=== PATIENT | female | born 1960 | race Caucasian/White ===

== ENCOUNTER 2020-03-30 01:54 | Emergency (ER) | payer BC, SELFPAY ==
[2020-03-30] VITALS (24 sets, daily range): BP systolic 91–116; BP diastolic 42–73; PULSE 75–101; RESP 16–40; TEMP 37.3; O2SAT 94–100
--- NOTE | ~2020-03-30 | CT_ITS ---
EXAMINATION: CT abdomen pelvis w con DATE: 03/30/2020 04:05 INDICATION: Intermittent left-sided abdominal pain. TECHNIQUE: Computed tomography (CT) of the abdomen and pelvis was performed with 100 cc Omnipaque 350 intravenous contrast. Automated exposure control and iterative reconstruction technique were employe d. Exam dose: 339.57 mGy-cm total exam DLP. COMPARISON: None. FINDINGS: The lung bases are clear of infiltrate or consolidation. Cardiomegaly. No pericardial or pl eural effusion. No hepatic space-occupying mass lesion or intrahepatic or extrahepatic bile duct dilatation. Status p ost cholecystectomy. Borderline splenomegaly, spleen measuring up to 13.5 cm height. No pancreatic ma ss lesion, calcification or ductal dilatation. Normal morphology of the adrenal glands. No renal mass lesion or urinary tract calculus or hydroureteronephrosis. Normal caliber of the abdominal aorta. No intraperitoneal or retroperitoneal or pelvic mass lesion or adenopathy or ascites. Small sliding hiatal hernia. Normal appendix. No bowel obstruction. There are diverticula of the colo n, primarily in the ascending colon and hepatic flexure; No CT evidence of diverticulitis. No intrape ritoneal free air. Status post hysterectomy. The urinary bladder is unremarkable. No suspicious osteolytic or osteoblastic lesions are noted. IMPRESSION: Borderline splenomegaly Status post hysterectomy Status post cholecystectomy Small sliding hiatal hernia Diverticulosis of the colon Reviewed, dictated and finalized at [facility]. Reviewed, dictated and finalized at location A.
--- NOTE | ~2020-03-30 | CT_ITS ---
EXAMINATION: CT brain wo con DATE: 03/30/2020 02:48 INDICATION: Dizziness. Intermittent weakness. TECHNIQUE: Computed tomography (CT) of the head was performed without intravenous contrast. The mA wa s adjusted according to patient size. Iterative reconstruction technique was employed. The dose-lengt h product was 605.33 mGy-cm. COMPARISON: None FINDINGS: There are scattered areas of low attenuation in the cerebral white matter. There is no intr acranial hemorrhage, acute infarction, or abnormal intracranial mass lesion. The ventricles are jeovany l in size. The orbits are normal. There is mild mucosal thickening in the ethmoid sinuses. The mastoi d air cells are normal. IMPRESSION: 1. Mild nonspecific cerebral white matter disease, which likely represents chronic small vessel ische fior disease. Reviewed, dictated and finalized at location [facility]. IMPRESSION: 1. 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
--- NOTE | ~2020-03-30 | XR_ITS ---
EXAMINATION: XR chest 1V portable DATE: 03/30/2020 02:56 INDICATION: Dizziness. TECHNIQUE: A single frontal view of the chest was obtained. COMPARISON: CT abdomen and pelvis 03/30/2020 FINDINGS: A calcified left lung nodule is consistent with old granulomatous disease. There is mild sc arring at left lung apex. No pleural effusion or pneumothorax. The heart size is normal. Surgical cli ps in the right upper quadrant are likely from cholecystectomy. IMPRESSION: 1. Mild scarring in left lung apex. Reviewed, dictated and finalized at location [facility].
--- NOTE | 2020-03-30 02:11 | ECG_ITS ---
Measurements Intervals [place] Rate: 84 P: 54 KS: 148 QRS: -82 QRSD: 99 T: 49 QT: 389 QTc: 461 Interpretive Statements SINUS RHYTHM LEFT AXIS DEVIATION INCOMPLETE RIGHT BUNDLE BRANCH BLOCK CONSIDER INFERIOR INFARCT, AGE INDETERMINATE ST-T WAVE ABNORMALITY IN SEPTAL LEADS- CONSIDER ISCHEMIA BASELINE ARTIFACT- I, II, III, AVR, AVL ABNORMAL ECG Electronically Signed On 03-30-2020 15:05:13 CDT by Rashel Vaca D.O.
--- NOTE | 2020-03-30 02:20 | ED.WEAKNESS ---
HPI - Weakness General Chief complaint: Weakness Stated complaint: fever, chills, dehydration Time Seen by Provider: 03/30/20 02:05 Source: RN notes reviewed History of Present Illness HPI Narrative: Patient presents emergency department from home for weakness. Patient states she has been weak for the past 10 days. She states she is felt fatigued as well as had a intermittent fever has been up to 102 ?F. Patient states she has had some intermittent upper abdominal pain described as aching. She denies any rhinorrhea sore throat chest pain shortness of breath cough nausea vomiting diarrhea or any other symptoms. Patient does state that she did have a COVID test 1 week ago at [facility] at the request of her work she denies any other symptoms at this time Related Data Home Medications Medication Instructions Recorded Confirmed No Home Medications 03/30/20 03/30/20 Allergies Allergy/AdvReac Type Severity Reaction Status Date / Time Penicillins Allergy Mild Anaphylaxis Verified 03/30/20 02:02 Lengjir-Nnv-Fxc Reductase Allergy Unknown Muscle Pain Verified 03/30/20 02:02 Inhibitor Review of Systems Review of Systems: Narrative: Gen.: Reports fever Eyes: Denies eye pain or visual change ENT: Denies congestion Respiratory: Denies shortness of breath or cough CV: Denies chest pain or palpitations GI: Denies nausea, emesis or diarrhea reports intermittent abdominal pain Musculoskeletal: Denies back pain or muscle pain Neuro: Denies numbness, tingling, reports weakness Skin: Denies rash Except as documented, all other systems reviewed and negative [facility] Past Medical History Medical History (Updated 03/30/20 @ 05:59 by Lalo Trujillo DO) Patient denies significant medical history Social History Social History (Updated 03/30/20 @ 02:24 by Lalo Trujillo DO) Smoking packs per day: 0.25 Smoking cigarettes per day: 5.0 Exam Narrative: Exam Narrative: APPEARANCE: No acute distress, nontoxic, resting in bed EYES: EOMI HEENT: Normocephalic, atraumatic, OMM RESPIRATORY: No respiratory distress Clear to auscultation bilaterally with no rhonchi wheezing or rales. CARDIOVASCULAR: Regular rate and rhythm without murmurs rubs or gallops. ABDOMINAL: Soft, nontender, nondistended, no rebound or guarding MUSCULOSKELETAl: Moves all extremities. No clubbing, cyanosis or edema. NEURO: Awake and alert. Following commands, speech normal, no focal deficits SKIN:: Warm, dry. No rashes lesions or abrasions PSYCHIATRIC: Normal affect/mood, Course Course Emergency Course: Discussed with Dr. Pearce for internal medicine presentation work-up with aortitis recommends transfer to tertiary center Discussed with patient need for transfer in agreement with [place] at this time Discussed with Dr. Gan at [facility] internal medicine agrees with admission at this time does request patient have COVID test Number transfer Vital Signs Vital signs: Vital Signs Temperature 99.2 F 03/30/20 02:04 Pulse Rate 88 03/30/20 02:04 Respiratory Rate 16 03/30/20 02:04 Blood Pressure 100/58 L 03/30/20 02:04 Pulse Oximetry 98 03/30/20 02:04 Temperature 99.2 F 03/30/20 02:04 Pulse Rate 85 03/30/20 03:00 Respiratory Rate 32 H 03/30/20 03:00 Blood Pressure 116/73 03/30/20 03:00 Pulse Oximetry 99 03/30/20 03:00 MDM - Weakness Lab Data Result diagrams: 03/30/20 02:41 03/30/20 02:41 Labs: Lab Results 03/30/20 03/30/20 03/30/20 Range/Units 02:39 02:39 02:41 WBC 6.3 (4.5-10.0) K/mm3 RBC 4.49 (4.2-5.4) M/mm3 Hgb 13.4 (12.0-15.0) g/dL Hct 37.5 (37.0-47.0) % MCV 83.5 (80-100) fl MCH 29.8 (26-34) pg MCHC 35.7 (32-36) g/dl RDW 12.3 (11.5-14.5) % Plt Count 177 (150-375) k/mm3 MPV 10.5 H (7.4-10.4) fl Immature Gran % (Auto) 0.6 H (0-0.5) % Neut % (Auto) 52.7 (45.5-73.1) % Lymph % (Auto) 40.
[2020-03-30] MEDS: SODIUM CHLORIDE 0.9% IV 1,000 ML 999 ML IV CONT (02:51)
[2020-03-30 02:54] LABS: Basophils Percent Auto 0.5 % (0.2-1.2); Eosinophils Percent Auto 0.5 % (0-4.4); Hematocrit 37.5 % (37.0-47.0); Hemoglobin 13.4 g/dL (12.0-15.0); Immature Granulocyte Absolute 0.04 K/mm3 (0.00-0.031); Immature Granulocyte Percent A 0.6 % (0-0.5); Lymphocytes Absolute Auto 2.53 K/mm3 (0.9-3.2); Mean Corpuscular HGB Conc 35.7 g/dl (32-36); Mean Corpuscular Hemoglobin 29.8 pg (26-34); Mean Corpuscular Volume 83.5 fl (80-100); Mean Platelet Volume 10.5 fl (7.4-10.4); Monocytes Absolute Auto 0.4 K/mm3 (0.1-0.6); Monocytes Percent Auto 5.7 % (2.6-8.5); Neutrophils Absolute Auto 3.3 K/mm3 (1.3-6.7); Neutrophils Percent Auto 52.7 % (45.5-73.1); Platelet Count Result 177 k/mm3 (150-375); Red Blood Count 4.49 M/mm3 (4.2-5.4); Red Cell Distribution Width 12.3 % (11.5-14.5); White Blood Count 6.3 K/mm3 (4.5-10.0)
[2020-03-30 03:05] LABS: Lactic Acid Reflex 0.8 mmol/L (0.7-2.1)
[2020-03-30 03:06] LABS: Alanine Aminotransferase 75 U/L (4-35); Albumin Level 3.9 g/dL (3.5-5.1); Alkaline Phosphatase 292 U/L (38-126); Aspartate Amino Transferase 96 U/L (14-36); Blood Urea Nitrogen 12 mg/dL (7-17); Calcium 8.6 mg/dL (8.4-10.2); Carbon Dioxide 25 mmol/L (22-30); Chloride 99 mmol/L (98-107); Estimated Glomerular Filt Rate > 60; Glucose 117 mg/dL (65-105); Potassium 3.7 mmol/L (3.4-5.0); Sodium 132 mmol/L (137-145)
[2020-03-30 03:13] LABS: Atypical Lymphocytes Present; Hypochromasia 1+ (NORMAL); INR 0.9; Large Platelets Present; Platelet Estimate Adequate (Adequate); Prothrombin Time 12.2 Seconds (11.1-14.7)
[2020-03-30 03:16] LABS: Partial Thromboplastin Time 27.7 SECONDS (22.3-36.8)
[2020-03-30 03:17] LABS: Troponin I < 0.012 ng/mL (0.000-0.034)
[2020-03-30 03:54] LABS: Add Urine Microscopic? YES; Appearance Urine Clear (Clear); Bacteria Urine Trace /hpf; Bilirubin Urine Negative (Negative); Blood Urine Negative (Negative); Color Urine Yellow (Yellow); Glucose Urine UA Negative (Negative); Ketones Urine Negative (Negative); Leukocyte Esterase Ur Trace LEU/UL (Negative); Mucus Urine Few /lpf; Nitrate Urine Negative (Negative); Protein Urine Negative (Negative); RBC Urine 0-2 /hpf (0-2); Specific Grav Ur 1.011 (1.001-1.035); Squamous Epithelial Cell Urine Few /hpf (Few); Urobilinogen Urine Negative mg/dL (<2.0); WBC Urine 0-3 /hpf
[2020-03-30 06:03] LABS: CRP 6.1 mg/dL (<1.0)
[2020-03-30 06:48] LABS: Erythrocyte Sedimentation Rate 19 mm/hr (0-20)
--- NOTE | 2020-03-30 08:43 | PC.NURSE ---
attempted to call report to Katey at [phone] and nurse was busy. Attempted to call report and no one is available at this time. Will attempt a third time in 15 mins
[2020-03-31 12:56] LABS: SARS-CoV-2 RNA PCR Negative
== END 2020-03-30 09:43 | disposition short-term general hospital (02) ==
PROVIDERS: Emergency Provider Emergency Medicine; PCP Internal Medicine
DX: I77.6 Arteritis, unspecified (principal); Z20.828 Contact with and (suspected) exposure to other viral communicable diseases; F17.210 Nicotine dependence, cigarettes, uncomplicated; K44.9 Diaphragmatic hernia without obstruction or gangrene; K57.90 Diverticulosis of intestine, part unspecified, without perforation or abscess without bleeding; I45.10 Unspecified right bundle-branch block; R94.31 Abnormal electrocardiogram [ECG] [EKG]; R90.82 White matter disease, unspecified
CPT/HCPCS: 36415; 70450; 71045; 74177; 80053; 81001; 83605; 84484; 85025; 85610; 85652; 85730; 86140; 87040; 87635; 93005; 96361; 96365; 99285; C9803; J0131; J7030; Q9967; U0003

== ENCOUNTER 2022-05-26 14:57 | Emergency (ER) | payer BC, SELFPAY ==
--- NOTE | ~2022-05-26 | XR_ITS ---
EXAMINATION: XR chest 2V Exam Date/Time: 05/26/2022 18:18 CDT HISTORY: cough, fever Comparison: 03/30/2020. RESULT: Lines, tubes, and devices: Cholecystectomy clips. Lungs and pleura: Clear. Cardiomediastinal silhouette: Stable. Other: No acute osseous or upper abdominal finding. IMPRESSION: No acute cardiopulmonary process. Reviewed, dictated and finalized at location [facility].
--- NOTE | ~2022-05-26 | CT_ITS ---
EXAMINATION: CTA chest abdomen pelvis DATE: 05/26/2022 20:18 INDICATION: Fever, chills, shortness of breath, abdominal pain, history of aortitis. TECHNIQUE: Computed tomography (CT) of the chest, abdomen, and pelvis was performed without and with 100 mL Omnipaque-350 intravenous contrast in arterial and portal venous phases. Automated exposure co ntrol and iterative reconstruction technique were employed. The dose-length product was 1664.15 mGy-c m. COMPARISON: CT abdomen pelvis 03/30/2020, x-ray chest, 05/26/2022 FINDINGS: Thoracic aorta: Mild arch calcification. No intramural thrombus, aneurysm, or dissection. Short segme nt eccentric wall thickening in the descending thoracic aorta, with mild adventitial enhancement. Lung parenchyma and airways: Lungs and airways are clear. Scattered calcified granulomas. Thoracic inlet, axillae and chest wall: No thyroid or soft tissue mass. No axillary lymphadenopathy. Mediastinum: No mass or lymphadenopathy. Small hiatal hernia. Heart and pericardium: Normal heart size. No pericardial effusion. Coronary artery calcifications: Absent. Pleura: No effusion or mass. Thoracic bones: No acute osseous finding in the chest. ABDOMEN/PELVIS: Liver: Mildly enlarged. Biliary/Gallbladder: Gallbladder is absent. No bile duct dilation. Pancreas: No mass or duct dilation. Spleen: Mildly enlarged. Adrenals:No mass. Kidneys: Left lower pole hypodensity, too small to characterize but likely represents a cyst. No susp icious mass, stone, or hydronephrosis. GI tract: No small or large bowel dilation. Normal appendix. Diverticulosis without diverticulitis. Mesentery/Peritoneum: No ascites, mass, or free air. Retroperitoneum: No mass. Atherosclerotic abdominal aortic and/or arterial calcifications. No abdomin al aortic aneurysm. Mild circumferential soft tissue density wall thickening of the infrarenal abdomi nal aorta, with a suggestion of very faint adventitial enhancement. Pelvis: Uterus absent. Otherwise the pelvic organs are within normal limits Soft Tissues: Soft tissues and body wall unremarkable. Abdominopelvic bones: No acute osseous finding in the abdomen/pelvis. IMPRESSION: Focal eccentric wall thickening in the descending thoracic aorta. Longer segment of circumferential w all thickening in the infrarenal abdominal aorta. Both regions exhibit a suggestion of mild adventiti al enhancement suggesting active aortitis. Mild hepatosplenomegaly. No other acute finding in the billy [address], abdomen, or pelvis. Reviewed, dictated and finalized at location [facility]. IMPRESSION: Focal eccentric wall thickening in the descending thoracic aorta. Longer segmen t of circumferential wall thickening in the infrarenal abdominal aorta. Both re gions exhibit a suggestion of mild adventitial enhancement suggesting active ao rtitis. Mild hepatosplenomegaly. No other acute finding in the chest, abdomen, or pelvis.
[2022-05-26 15:43] VITALS: BP 109/61; PULSE 81; RESP 20; TEMP 36.5; O2SAT 98
[2022-05-26 16:42] LABS: SARS-CoV-2 RNA PCR Negative
--- NOTE | 2022-05-26 18:13 | ECG_ITS ---
Measurements Intervals [place] Rate: 79 P: 6 CO: 164 QRS: 267 QRSD: 90 T: 52 QT: 394 QTc: 454 Interpretive Statements SINUS RHYTHM RIGHT AXIS DEVIATION INCOMPLETE RIGHT BUNDLE BRANCH BLOCK RIGHT VENTRICULAR HYPERTROPHY AND ST-T CHANGE INFERIOR INFARCT, AGE INDETERMINATE BORDERLINE T WAVE ABNORMALITY- ANTERIOR LEADS BASELINE ARTIFACT- I, II, III, AVR, AVL, AVF ABNORMAL ECG Electronically Signed On 05-26-2022 21:52:18 CDT by Rashel Vaca D.O.
--- NOTE | 2022-05-26 18:14 | ED.GENADULT ---
HPI - General Adult General Chief complaint: Upper Respiratory Infection <Matthew Salazar APRN - Last Filed: 05/26/22 22:29> Stated complaint: fever, sore throat <Matthew Salazar APRN - Last Filed: 05/26/22 22:29> Time Seen by Provider: 05/26/22 18:06 <Matthew Salazar APRN - Last Filed: 05/26/22 22:29> History of Present Illness HPI narrative: 62-year-old female history of aortitis presents to the emergency room for evaluation URI symptoms. Patient states 3 days ago began developing intermittent fevers T-max of 100, sore throat, sinus congestion, postnasal drip, cough and occasional difficulty breathing. Patient also endorses joint pain in her arms and legs. home COVID test was negative. Patient is also accompanied by her daughter, and she remarks that the patient has been showing signs of mild confusion. Family member states the last time she presented like this she was diagnosed with aortitis. <Matthew Salazar APRN - Last Filed: 05/26/22 22:29> Related Data Home medications: Home Medications Medication Instructions Recorded Confirmed No Home Medications 03/30/20 03/30/20 <Matthew Salazar APRN - Last Filed: 05/26/22 22:29> Allergies/adverse reactions: Allergies Allergy/AdvReac Type Severity Reaction Status Date / Time Penicillins Allergy Mild Anaphylaxis Verified 05/26/22 19:13 Gxvukvg-EAW-TeD Reductase Allergy Unknown Muscle Pain Verified 05/26/22 19:13 Inhibitor [Rnldevq-Nmo-Uzt Reductase Inhibitor] <Matthew Salazar APRN - Last Filed: 05/26/22 22:29> Review of Systems Review of Systems: CONSTITUTIONAL: Reports fever EYES: Denies visual changes, redness, or discharge. ENT: Reports rhinorrhea, congestion, sore throat, or otalgia. CARDIOVASCULAR: Denies chest pain, palpitations, or edema. RESPIRATORY: Reports cough GASTROINTESTINAL: Denies abdominal pain, nausea, vomiting, or diarrhea. GENITOURINARY: Denies dysuria or hematuria. SKIN: Denies rash or itching. MUSCULOSKELETAL: Denies back pain, joint pain, or myalgia. NEUROLOGIC: Reports generalized weakness and malaise PSYCHIATRIC: Denies anxiety or depression. <Matthew Salazar APRN - Last Filed: 05/26/22 22:29> [facility] Past Medical History Medical History: Medical History Patient denies significant medical history <Matthew Salazar APRN - Last Filed: 05/26/22 22:29> Social History Social History: Social History Smoking packs per day: 0.25 Smoking cigarettes per day: 5.0 <Matthew Salazar APRN - Last Filed: 05/26/22 22:29> Exam Narrative: GENERAL: Well-appearing, well-nourished, no physical limitations, and in no acute distress. HEAD: Normocephalic, atraumatic. EYES: Conjunctivae normal, PERRLA and EOMI. ENT: External nose normal, Nares clear, no rhinorrhea or epistaxis. Mucous membranes moist. Oropharynx without tonsillar hypertrophy exudate or other lesions. External ears normal, bilateral TMs normal bilaterally. white-coated tongue NECK: Supple. No adenopathy or masses CHEST: Clear to auscultation. No respiratory distress. No wheezes rales or rhonchi. No tenderness. HEART: Regular rate and rhythm. No murmur heard. Normal peripheral pulses. ABDOMEN: Soft, nontender, nondistended, normal active bowel sounds. BACK: No CVA tenderness; No cervical/thoracic/lumbar tenderness, step-offs, bony abnormality; FROM EXTREMITIES: Normal range of motion. No edema. No clubbing or cyanosis SKIN: Warm, dry, no rash. No noted wounds NEURO: No focal deficits. Alert and oriented x3. MAEW. CN's II-XI intact bilaterally, normal gait PSYCH: Cooperative. Normal mood and affect. <Matthew Salazar APRN - Last Filed: 05/26/22 22:29> Course Course Emergency Course: 2199: I have contacted [facility], [facility], and [facility] for possible transfer and admission. Patient is on the wait list with all 3 hosp
[2022-05-26 18:53] LABS: Basophils Absolute Auto 0.1 K/mm3 (0.0-0.1); Basophils Percent Auto 0.5 % (0.2-1.2); Eosinophils Absolute Auto 0.4 K/mm3 (0-0.3); Eosinophils Percent Auto 2.5 % (0-4.4); Hematocrit 40.5 % (37.0-47.0); Hemoglobin 13.4 g/dL (12.0-15.0); Immature Granulocyte Absolute 0.06 K/mm3 (0.00-0.031); Immature Granulocyte Percent A 0.4 % (0-0.5); Lymphocytes Absolute Auto 4.43 K/mm3 (0.9-3.2); Lymphocytes Percent Auto 30.8 % (18.3-44.2); Mean Corpuscular HGB Conc 33.1 g/dl (32-36); Mean Corpuscular Hemoglobin 29.5 pg (26-34); Mean Corpuscular Volume 89.2 fl (80-100); Mean Platelet Volume 8.8 fl (7.4-10.4); Monocytes Percent Auto 6.9 % (2.6-8.5); Neutrophils Absolute Auto 8.5 K/mm3 (1.3-6.7); Neutrophils Percent Auto 58.9 % (45.5-73.1); Platelet Count Result 339 k/mm3 (150-375); Red Blood Count 4.54 M/mm3 (4.2-5.4); Red Cell Distribution Width 11.9 % (11.5-14.5); White Blood Count 14.4 K/mm3 (4.5-10.0)
[2022-05-26 19:06] LABS: Partial Thromboplastin Time 26.5 SECONDS (22.3-36.8)
[2022-05-26 19:13] VITALS: BP 128/68; PULSE 88; RESP 26; O2SAT 98
[2022-05-26 19:15] LABS: Alanine Aminotransferase 30 U/L (6-35); Albumin Level 4.7 g/dL (3.5-5.1); Alkaline Phosphatase 151 U/L (38-126); Anion Gap 13 mmol/L (8-16); Aspartate Amino Transferase 31 U/L (14-36); Bilirubin,Total 0.6 mg/dL (0.2-1.3); Blood Urea Nitrogen 11 mg/dL (7-17); CRP 6.2 mg/dL (<1.0); Calcium 9.9 mg/dL (8.4-10.2); Carbon Dioxide 27 mmol/L (22-30); Chloride 98 mmol/L (98-107); Estimated CRCL calculation 48 ml/min; Estimated Glomerular Filt Rate > 60; Glucose 101 mg/dL (65-110); Lipase 37 U/L (23-300); Potassium 4.1 mmol/L (3.4-5.0); Sodium 138 mmol/L (137-145)
[2022-05-26 19:30] LABS: Appearance Urine Clear (Clear); Bilirubin Urine 1+ (Negative); Blood Urine Negative (Negative); Color Urine Yellow (Yellow); Glucose Urine UA Negative (Negative); Ketones Urine Negative (Negative); Leukocyte Esterase Ur Negative LEU/UL (Negative); Nitrate Urine Negative (Negative); Protein Urine Negative (Negative); Specific Grav Ur >= 1.030 (1.001-1.035); Urobilinogen Urine 0.2 mg/dL (<2.0)
[2022-05-26 19:37] LABS: Bacteria Urine Trace /hpf; Mucus Urine Rare /lpf; RBC Urine 0-2 /hpf (0-2); Squamous Epithelial Cell Urine Few /hpf (Few); WBC Urine 0-3 /hpf
[2022-05-26 19:40] LABS: Add Urine Microscopic? YES
--- NOTE | 2022-05-26 20:06 | PC.NURSE ---
Pt to CT scan via stretcher at this time.
[2022-05-26 21:12] VITALS: BP 125/84; PULSE 94; RESP 24; O2SAT 98
--- NOTE | 2022-05-26 21:55 | PC.NURSE ---
Aubrie from [facility] access line called for pt info for bed assignment. Will call back after review.
[2022-05-26] MEDS: methylPREDNISolone SOD SUCC 125 MG VIAL IV PUSH (22:01)
--- NOTE | 2022-05-26 22:02 | PC.NURSE ---
Talked to Scott in lab at 22:02 to add on ESR
[2022-05-26 22:22] VITALS: BP 112/75; PULSE 79; RESP 28; O2SAT 98
--- NOTE | 2022-05-26 22:22 | PC.NURSE ---
Pt daughter at bedside requesting update on POC/information. CELL [phone] Tonya
[2022-05-26 22:31] LABS: Erythrocyte Sedimentation Rate 49 mm/hr (0-20)
[2022-05-26 23:27] VITALS: BP 130/70; PULSE 78; RESP 27; O2SAT 95
[2022-05-27] VITALS (65 sets, daily range): BP systolic 116–134; BP diastolic 61–114; PULSE 67–97; RESP 14–37; O2SAT 90–100
--- NOTE | 2022-05-27 05:00 | PC.NURSE ---
Filomena from [facility] called to ck on status of pt and see if any changes occurred during the night. Notified no change in pt condition and VSS. [facility] will cont to keep pt on waiting list and call with any updates.
--- NOTE | 2022-05-27 06:07 | PC.NURSE ---
Per Lizbeth - pulvi mixer operator, [facility] called for update on pt, insurance questions, and if pt was still needing transfer. pulvi mixer operator stated she is unaware of pt ins and if rheumatology follow up is covered. [facility] has no further questions at this time and states pt is still on their waiting list.
--- NOTE | 2022-05-27 07:20 | PC.NURSE ---
called dietary and ordered breakfast tray for pt at this time
[2022-05-27] MEDS: methylPREDNISolone SOD SUCC 125 MG VIAL IV PUSH ×3 (07:55→18:52)
[2022-05-28] VITALS (65 sets, daily range): BP systolic 98–150; BP diastolic 50–82; PULSE 55–93; RESP 16–34; TEMP 36.6–36.8; O2SAT 91–100
[2022-05-28] MEDS: methylPREDNISolone SOD SUCC 125 MG VIAL IV PUSH ×4 (00:24→18:04)
--- NOTE | 2022-05-28 02:16 | PC.NURSE ---
[facility] and [facility] called for an update still no beds
[2022-05-28 07:57] LABS: Basophils Percent Auto 0.2 % (0.2-1.2); Eosinophils Absolute Auto 0.1 K/mm3 (0-0.3); Eosinophils Percent Auto 0.3 % (0-4.4); Hematocrit 37.3 % (37.0-47.0); Hemoglobin 12.8 g/dL (12.0-15.0); Immature Granulocyte Absolute 0.28 K/mm3 (0.00-0.031); Immature Granulocyte Percent A 1.5 % (0-0.5); Lymphocytes Absolute Auto 2.66 K/mm3 (0.9-3.2); Lymphocytes Percent Auto 14.6 % (18.3-44.2); Mean Corpuscular HGB Conc 34.3 g/dl (32-36); Mean Corpuscular Volume 87.6 fl (80-100); Mean Platelet Volume 8.9 fl (7.4-10.4); Monocytes Absolute Auto 0.5 K/mm3 (0.1-0.6); Monocytes Percent Auto 2.7 % (2.6-8.5); Neutrophils Absolute Auto 14.7 K/mm3 (1.3-6.7); Neutrophils Percent Auto 80.7 % (45.5-73.1); Platelet Count Result 375 k/mm3 (150-375); Red Blood Count 4.26 M/mm3 (4.2-5.4); Red Cell Distribution Width 11.8 % (11.5-14.5); White Blood Count 18.2 K/mm3 (4.5-10.0)
[2022-05-28 08:12] LABS: Alanine Aminotransferase 22 U/L (6-35); Albumin Level 4.5 g/dL (3.5-5.1); Alkaline Phosphatase 129 U/L (38-126); Anion Gap 11 mmol/L (8-16); Aspartate Amino Transferase 20 U/L (14-36); Bilirubin,Total 0.4 mg/dL (0.2-1.3); Blood Urea Nitrogen 19 mg/dL (7-17); Calcium 9.6 mg/dL (8.4-10.2); Carbon Dioxide 28 mmol/L (22-30); Chloride 100 mmol/L (98-107); Estimated CRCL calculation 48 ml/min; Estimated Glomerular Filt Rate > 60; Glucose 179 mg/dL (65-110); Potassium 4.4 mmol/L (3.4-5.0); Sodium 139 mmol/L (137-145)
--- NOTE | 2022-05-28 11:49 | PC.NURSE ---
Pt food tray delivered
--- NOTE | 2022-05-28 11:52 | PC.NURSE ---
patient's daughter called per patient request, updated on bed placement holds and IV medications patient is receiving in the ED. patient's daughter upset that there are no other beds that she could go to but understands what we are waiting for at this time.
--- NOTE | 2022-05-28 12:49 | PC.NURSE ---
[facility] called for update on patient at this time, requesting vital signs with temperature. Patient still on waiting list, no eta on bed placement
--- NOTE | 2022-05-28 15:03 | PC.NURSE ---
05/28/[address] [facility]. on waitlist for medical bed, no beds at this time, 1245, 05/28/22 called [facility] no beds on for wait list, 1249, 05/28/22 called [facility]. on wait list , no beds. [phone]
--- NOTE | 2022-05-28 17:17 | PC.NURSE ---
dinner tray ordered at this time.
[2022-05-29] VITALS (111 sets, daily range): BP systolic 102–146; BP diastolic 60–83; PULSE 52–94; RESP 14–42; TEMP 36.8; O2SAT 92–100
[2022-05-29] MEDS: ACETAMINOPHEN 325 MG TABLET 650 MG PO (00:23)
[2022-05-29] MEDS: methylPREDNISolone SOD SUCC 125 MG VIAL IV PUSH (00:25)
--- NOTE | 2022-05-29 02:53 | PC.NURSE ---
spoke with pollo from [facility] transfer center at this time, wanting update on vital signs and pt status. per Pollo they will call when a bed is available.
--- NOTE | 2022-05-29 05:09 | PC.NURSE ---
Spoke with [facility]. They are aware that the patient is still in the ER and waiting for a bed.
[2022-05-29] MEDS: predniSONE 20 MG TABLET 60 MG PO (08:15)
--- NOTE | 2022-05-29 09:14 | PC.NURSE ---
C called for pt update. They still have no beds available at this time.
[2022-05-29 11:48] LABS: Basophils Absolute Auto 0.1 K/mm3 (0.0-0.1); Basophils Percent Auto 0.3 % (0.2-1.2); Hematocrit 37.4 % (37.0-47.0); Hemoglobin 12.5 g/dL (12.0-15.0); Immature Granulocyte Absolute 0.41 K/mm3 (0.00-0.031); Immature Granulocyte Percent A 2.2 % (0-0.5); Lymphocytes Absolute Auto 2.84 K/mm3 (0.9-3.2); Lymphocytes Percent Auto 15.3 % (18.3-44.2); Mean Corpuscular HGB Conc 33.4 g/dl (32-36); Mean Corpuscular Hemoglobin 29.8 pg (26-34); Mean Platelet Volume 8.9 fl (7.4-10.4); Monocytes Absolute Auto 0.8 K/mm3 (0.1-0.6); Monocytes Percent Auto 4.3 % (2.6-8.5); Neutrophils Absolute Auto 14.5 K/mm3 (1.3-6.7); Neutrophils Percent Auto 77.9 % (45.5-73.1); Platelet Count Result 339 k/mm3 (150-375); Red Cell Distribution Width 11.9 % (11.5-14.5); White Blood Count 18.6 K/mm3 (4.5-10.0)
[2022-05-29 11:55] LABS: Alanine Aminotransferase 20 U/L (6-35); Albumin Level 4.2 g/dL (3.5-5.1); Alkaline Phosphatase 118 U/L (38-126); Anion Gap 12 mmol/L (8-16); Aspartate Amino Transferase 19 U/L (14-36); Bilirubin,Total 0.4 mg/dL (0.2-1.3); Blood Urea Nitrogen 23 mg/dL (7-17); Calcium 9.1 mg/dL (8.4-10.2); Carbon Dioxide 25 mmol/L (22-30); Chloride 102 mmol/L (98-107); Estimated CRCL calculation 53 ml/min; Estimated Glomerular Filt Rate > 60; Glucose 233 mg/dL (65-110); Potassium 4.2 mmol/L (3.4-5.0); Sodium 139 mmol/L (137-145)
[2022-05-29 13:10] LABS: Creatine Kinase 25 U/L (30-135)
--- NOTE | 2022-05-29 15:01 | PC.NURSE ---
benny w/ Adelina at [email or web address] reports there are no beds available today. reports they are at capacity.
[2022-05-30] VITALS (30 sets, daily range): BP systolic 117–159; BP diastolic 61–89; PULSE 48–68; RESP 16–18; O2SAT 92–98
--- NOTE | 2022-05-30 00:15 | PC.NURSE ---
Katey called for an update. no news on a bed at this time.
--- NOTE | 2022-05-30 03:49 | PC.NURSE ---
[facility] transfer center called to check on the status of Noelle Man. [facility] is still at capacity but she will remain in their queue.
--- NOTE | 2022-05-30 05:19 | PC.NURSE ---
[facility] called to check patient's condition. Spoke with the RN
== END 2022-05-30 08:45 | disposition short-term general hospital (02) ==
PROVIDERS: Emergency Medicine; Physician Assistant; Emergency Provider Nurse Practitioner Family; PCP Internal Medicine
DX: I77.6 Arteritis, unspecified (principal); Z20.822 Contact with and (suspected) exposure to COVID-19; F17.210 Nicotine dependence, cigarettes, uncomplicated
CPT/HCPCS: 36415; 71046; 71275; 74174; 80053; 81001; 82550; 83605; 83690; 85025; 85610; 85652; 85730; 86140; 93005; 96374; 99285; A9270; C9803; J2930; J7512; Q9967; U0003; U0005

== ENCOUNTER 2023-05-06 11:20 | Emergency (ER) | payer MEDICARE, MEDICAID, SELFPAY ==
[2023-05-06 11:30] VITALS: BP 119/60; PULSE 71; RESP 20; TEMP 36.7; O2SAT 96
--- NOTE | 2023-05-06 11:30 | ED.EYEPROB ---
HPI - Eye Problem General Chief complaint: Eye Problems Stated complaint: Left Eye Irritation Time Seen by Provider: 05/06/23 11:39 Source: patient, RN notes reviewed and old records reviewed Mode of arrival: ambulatory Limitations: no limitations History of Present Illness HPI Narrative: 62-year-old female presents to the [facility] with complaints of left eye irritation, drainage, crusting for 2 weeks. States that she saw her eye doctor at [facility] and scheduled a cataract surgery. Reports that they tried calling yesterday but had they have not returned her phone call Patient reports they have not treated her symptoms. Has not got better or worse since being seen 2 weeks ago Patient reports that she has bad vision that is why she is needing cataract surgery. In the last 2 weeks she denies any change in vision. Onset (ago): week(s) (2) Treatments Prior to Arrival: none Related Data Home Medications Medication Instructions Recorded Confirmed Humira 05/06/23 05/06/23 cholecalciferol (vitamin D3) 1,250 05/06/23 mcg (50,000 unit) capsule leflunomide 20 mg tablet mg 05/06/23 pantoprazole 40 mg tablet,delayed mg PO 05/06/23 release sertraline 50 mg tablet mg 05/06/23 Allergies Allergy/AdvReac Type Severity Reaction Status Date / Time Penicillins Allergy Mild Anaphylaxis Verified 05/06/23 11:54 Vqgzweu-DMK-YbY Reductase Allergy Unknown Muscle Pain Verified 05/06/23 11:54 Inhibitor [Dtckhnn-Yqr-Ddn Reductase Inhibitor] Review of Systems Review of Systems: All systems reviewed & are unremarkable except as noted in HPI and below Constitutional: Constitutional: Reports no additional constitutional complaints Eyes: Eyes: Reports as per HPI ENT: Reports system reviewed and no additional complaints, except as documented Cardiovascular: Cardiovascular: Reports no additional cardiovascular complaints, Denies chest pain and Denies dyspnea Respiratory: Respiratory: Reports no additional respiratory complaints, Denies chest congestion, Denies cough and Denies dyspnea Gastrointestinal: Gastrointestinal: Reports no additional gastrointestinal complaints, Denies abdominal pain, Denies nausea and Denies vomiting Musculoskeletal: Musculoskeletal: Reports no additional musculoskeletal complaints Integumentary/Breasts: Skin/Breast: Reports system reviewed and no additional complaints, except as docu Neurologic: Reports system reviewed and no additional complaints, except as documented Psychiatric: Psychiatric: Reports no additional psychiatric complaints Allergic/Immunologic: Allergic/Immunologic: Reports no additional allergic/immunologic complaints PMFSH Past Medical History Medical History Patient denies significant medical history Social History Social History Smoking packs per day: 0.25 Smoking cigarettes per day: 5.0 Comments At the time of my signature, I reviewed and agree with the nursing past medical, surgical, social, and family history. There is no relevant family history pertinent to the patient complaint. Exam Const: General: cooperative, healthy appearing, comfortable, no acute distress, well developed, alert and well nourished Nutritional Appearance: well nourished Orientation/consciousness: patient oriented x3 Limitations: no limitations HENMT: Head: normal to inspection Ears: hearing grossly normal bilaterally and external ears normal Face/Nose/Sinus: Normal external nose present, Normal nares present, Normal nasal mucous membranes and turbinates present and normal facial exam Face and sinus: normal facial exam Mouth: Yes Normal oral and palatal mucosa present, Yes lip normal and Yes moist mucous membranes Throat: posterior oropharynx normal and uvula midline Eyes: General: appearance normal, both eyes and all related structures Alignment and Position: alignment n
[2023-05-06 11:55] VITALS: BP 119/60; PULSE 71; RESP 20; TEMP 36.7; O2SAT 96
== END 2023-05-06 12:06 | disposition home or self-care (01) ==
PROVIDERS: Emergency Provider Nurse Practitioner; PCP Physician Assistant
DX: H10.32 Unspecified acute conjunctivitis, left eye (principal); F17.210 Nicotine dependence, cigarettes, uncomplicated
CPT/HCPCS: 99211; G0463

== ENCOUNTER 2023-09-30 14:10 | Emergency (ER) | payer MEDICARE, MEDICAID, SELFPAY ==
--- NOTE | ~2023-09-30 | XR_ITS ---
EXAMINATION: XR chest 2V 09/30/2023 14:46 INDICATION: Productive cough PROCEDURE: 2 view chest COMPARISON: 05/26/2022 FINDINGS: The lungs are clear. The lungs are hyperinflated which is consistent with, but not diagnost ic of chronic obstructive pulmonary disease. The cardiomediastinal silhouette is within normal limits . There are no pleural effusions. There is no pneumothorax suspected. IMPRESSION: 1: NO ACUTE CARDIOPULMONARY DISEASE. Reviewed, dictated and finalized at location [facility]
--- NOTE | 2023-09-30 14:15 | ED.URI ---
HPI - URI/Sore Throat General Chief Complaint: Upper Respiratory Infection Stated Complaint: Cough Time Seen by Provider: 09/30/23 14:29 Source: patient and RN notes reviewed Mode of arrival: ambulatory Limitations: no limitations History of Present Illness HPI Narrative: 64-year-old female with history of rheumatoid arthritis presents with 1 month history of cough. Reports she is on immunosuppressants and her business office director want her to be evaluated. She reports she has the beginning stages of COPD, she has not smoked in 3 years. She reports she has an albuterol inhaler at home that she has used intermittently throughout her illness but does not make much of a difference. MD elicited complaint: cough Related Data Home Medications Medication Instructions Recorded Confirmed cholecalciferol (vitamin D3) 1,250 1,250 mcg DIRECTED 05/06/23 09/30/23 mcg (50,000 unit) capsule leflunomide 20 mg tablet 20 mg DIRECTED 05/06/23 09/30/23 pantoprazole 40 mg tablet,delayed 40 mg PO DIRECTED 05/06/23 09/30/23 release sertraline 50 mg tablet 50 mg DIRECTED 05/06/23 09/30/23 adalimumab 40 mg/0.4 mL mg subcut 09/30/23 subcutaneous pen kit (Humira(CF) Pen) folic acid 1 mg tablet 1 mg DIRECTED 09/30/23 09/30/23 trazodone 50 mg tablet 50 mg DIRECTED 09/30/23 09/30/23 Allergies Allergy/AdvReac Type Severity Reaction Status Date / Time Penicillins Allergy Mild Anaphylaxis Verified 05/06/23 11:54 Tnjcjwd-KRO-PuY Reductase Allergy Unknown Muscle Pain Verified 05/06/23 11:54 Inhibitor [Bzmybjm-Mwo-Ven Reductase Inhibitor] Review of Systems Review of Systems: CONSTITUTIONAL: Denies malaise, chills, sweats, or fever. EYES: Denies visual changes, redness, or discharge. ENT: Reports rhinorrhea, congestion. Denies sinus pain, otalgia and sore throat. CARDIOVASCULAR: Denies chest pain, palpitations, or edema. RESPIRATORY: Reports cough. Denies dyspnea. GASTROINTESTINAL: Denies abdominal pain, nausea, vomiting, diarrhea SKIN: Denies rash or itching. MUSCULOSKELETAL: Denies myalgia. NEUROLOGIC: Denies headache. All systems reviewed & are unremarkable except as noted in HPI and below PMFSH Past Medical History Medical History Patient denies significant medical history Social History Social History Smoking packs per day: 0.25 Smoking cigarettes per day: 5.0 Comments At time of signature, agree with nursing past medical, surgical, social and family history. There is no relevant family history pertinent to the presenting complaint Exam Narrative: GENERAL: Well-appearing, well-nourished, and in no acute distress. HEAD: Normocephalic EYES: PERRLA, conjunctivae clear ENT: Nares clear, turbinates edematous and erythematous, clear discharge. Mucous membranes moist. TM pearly joaquin with dull light reflex bilaterally; no tragal tenderness. Oropharynx not erythematous without lesions. Tonsils not enlarged and without exudate, no drooling, no hoarseness, no trismus, uvula midline. NECK: Supple. No lymphadenopathy CHEST: Scattered wheeze and rhonchi, breath diminished in the bases. No rales, or stridor. No respiratory distress, speaks in full sentences. HEART: Regular rate and rhythm. No murmur heard. SKIN: Warm, dry, no rash. NEURO: Alert and oriented x3. PSYCH: Normal mood and affect Course Course Emergency Course: Patient is aware of diagnosis, understands and agrees to treatment plan. Anticipatory guidance given. Patient agrees to follow-up as directed and is aware of reasons to seek care at the emergency department. Portions of this record may have been created with voice recognition software Level of Care: Express Care Visit Vital Signs Vital signs: Reviewed. MDM - URI/Sore Throat MDM Narrative Medical decision making narrative: Differential diagnosis considered: [facility]
[2023-09-30 14:19] VITALS: BP 131/66; PULSE 75; RESP 16; TEMP 36.7; O2SAT 95
[2023-09-30 14:22] VITALS: BP 131/66; PULSE 75; RESP 16; TEMP 36.7; O2SAT 95
== END 2023-09-30 15:06 | disposition home or self-care (01) ==
PROVIDERS: Emergency Provider Nurse Practitioner; PCP Physician Assistant
DX: R05.9 Cough, unspecified (principal); F17.210 Nicotine dependence, cigarettes, uncomplicated; J44.9 Chronic obstructive pulmonary disease, unspecified; M35.3 Polymyalgia rheumatica
CPT/HCPCS: 71046; 99213; G0463

== ENCOUNTER 2024-06-03 14:06 | Emergency (ER) | payer MEDICARE, MEDICAID, SELFPAY ==
[2024-06-03 14:18] VITALS: BP 132/56; PULSE 84; RESP 16; TEMP 37; O2SAT 97
--- NOTE | 2024-06-03 14:26 | ED.WOUNDLAC ---
HPI - Wound/Laceration General Chief Complaint: Wound/Laceration Stated Complaint: Wound Check History of Present Illness HPI narrative: Patient presents with complaints of wound to right lower leg. She reports that about 10 days ago she dropped a brick on it and scraped the leg. She immediately cleaned it with peroxide, has been putting triple antibiotic ointment on it. Is occasionally soaking it. She began to notice about a week ago that the site was looking infected. She has had yellowing green drainage. She has had increasing pain. She denies any fever, chills, sweats. She voices no other concerns or complaints today Related Data Home Medications Medication Instructions Recorded Confirmed cholecalciferol (vitamin D3) 1,250 1,250 mcg PO DIRECTED 05/06/23 06/03/24 mcg (50,000 unit) capsule leflunomide 20 mg tablet 20 mg PO DIRECTED 05/06/23 06/03/24 pantoprazole 40 mg tablet,delayed 40 mg PO DIRECTED 05/06/23 06/03/24 release sertraline 50 mg tablet 50 mg PO DIRECTED 05/06/23 06/03/24 adalimumab 40 mg/0.4 mL 40 mg subcut WEEKLY 09/30/23 06/03/24 subcutaneous pen kit (Humira(CF) Pen) folic acid 1 mg tablet 1 mg PO DIRECTED 09/30/23 06/03/24 trazodone 50 mg tablet 50 mg PO DIRECTED at bedtime 09/30/23 06/03/24 Allergies Allergy/AdvReac Type Severity Reaction Status Date / Time Penicillins Allergy Mild Anaphylaxis Verified 06/03/24 14:08 Ydiurwi-FJS-QdI Reductase Allergy Unknown Muscle Pain Verified 06/03/24 14:08 Inhibitor [Wyfsqxq-Sqa-Ons Reductase Inhibitor] Review of Systems Review of Systems: All systems reviewed & are unremarkable except as noted in HPI and below Constitutional: Constitutional: Reports no additional constitutional complaints ENT: Reports system reviewed and no additional complaints, except as documented Cardiovascular: Cardiovascular: Reports no additional cardiovascular complaints Respiratory: Respiratory: Reports no additional respiratory complaints Gastrointestinal: Gastrointestinal: Reports no additional gastrointestinal complaints Integumentary/Breasts: Skin/Breast: Reports as per HPI [facility] Past Medical History Medical History Patient denies significant medical history Social History Social History Smoking packs per day: 0.25 Smoking cigarettes per day: 5.0 Exam Const: General: cooperative, no acute distress, alert and awake Orientation/consciousness: oriented to person, oriented to place and oriented to time HENMT: Head: normal to inspection Resp: Effort & Inspection: normal respiratory effort and able to speak in complete sentences Auscultation: clear to auscultation bilaterally, no crackles, no rales, no rhonchi and no wheezes Cardio: Palpation: normal PMI Rate: regular rate Rhythm: regular rhythm Heart sounds: S1 normal heart sound present and S2 normal heart sound present Neuro: General: oriented to person, oriented to place and oriented to time Cranial nerves: Yes CN's II-XII intact bilaterally Extrem: Upper/lower leg/hip images: 1. 2.5 cm diameter wound, macerated scab. Central opening with scant drainage. There is an additional 1 cm of erythema surrounding this. No induration Psych: Appearance: grossly normal Thought process: Normal thought process present Insight: Good insight present (Psych) Judgement: Good judgement present (Psych) Course Course Level of Care: Express Care Visit Vital Signs Vital signs: Vital Signs Temperature 98.6 F 06/03/24 14:18 Pulse Rate 84 06/03/24 14:18 Respiratory Rate 16 06/03/24 14:18 Blood Pressure 132/56 L 06/03/24 14:18 Pulse Oximetry 97 06/03/24 14:18 Oxygen Delivery Room Air 06/03/24 14:18 Temperature 98.6 F 06/03/24 14:18 Pulse Rate 84 06/03/24 14:18 Respiratory Rate 16 06/03/24 14:18 Blood Pressure 132/56 L 08
== END 2024-06-03 14:35 | disposition home or self-care (01) ==
PROVIDERS: Emergency Provider Nurse Practitioner Family; PCP Physician Assistant
DX: L03.115 Cellulitis of right lower limb (principal); F17.210 Nicotine dependence, cigarettes, uncomplicated
CPT/HCPCS: 99213; G0463

== ENCOUNTER 2024-11-03 16:00 | Emergency (ER) | payer MEDICARE, MEDICAID, SELFPAY ==
[2024-11-03 16:07] VITALS: BP 118/62; PULSE 90; RESP 20; TEMP 37.2; O2SAT 95
--- NOTE | 2024-11-03 16:38 | ED.URI ---
HPI - URI/Sore Throat General Chief Complaint: Upper Respiratory Infection Stated Complaint: Cough/congestion/sore throat off and on 2 months Time Seen by Provider: 11/03/24 16:38 Source: patient Mode of arrival: ambulatory Limitations: no limitations History of Present Illness HPI Narrative: 64-year-old female presents with complaint of sore throat, fatigue, body aches, headache for the past 4-5 days. Has been exposed to strep throat from her grand children. All systems reviewed and negative except as noted above. Related Data Home Medications ?Medication ?Instructions ?Recorded ?Confirmed ?Last Taken ?Type pantoprazole 40 mg tablet,delayed 40 mg PO DIRECTED 05/06/23 06/03/24 Unknown History release sertraline 50 mg tablet 50 mg PO DIRECTED 05/06/23 06/03/24 Unknown History adalimumab 40 mg/0.4 mL 40 mg subcut WEEKLY 09/30/23 11/03/24 Unknown History subcutaneous pen kit (Humira(CF) Pen) folic acid 1 mg tablet 1 mg PO DIRECTED 09/30/23 06/03/24 Unknown History trazodone 50 mg tablet 50 mg PO DIRECTED at bedtime 09/30/23 06/03/24 Unknown History atorvastatin 10 mg tablet mg 11/03/24 Unknown History Allergies Allergy/AdvReac Type Severity Reaction Status Date / Time Penicillins Allergy Mild Anaphylaxis Verified 11/03/24 16:17 Ludxdud-HUV-WfB Reductase Allergy Unknown Muscle Pain Verified 06/03/24 14:08 Inhibitor (Pkhbltn-Jxj-Pxb Reductase Inhibitor) Review of Systems Review of Systems: CONSTITUTIONAL: Reports fatigue,fever, chills, or sweats. EYES: Denies visual changes, redness, or discharge. ENT: Denies rhinorrhea, congestion. Reports sore throat. Denies otalgia. CARDIOVASCULAR: Denies chest pain, palpitations, or edema. RESPIRATORY: Denies cough or dyspnea. GASTROINTESTINAL: Denies abdominal pain, nausea, vomiting, or diarrhea. GENITOURINARY: Denies dysuria or hematuria. SKIN: Denies rash or itching. MUSCULOSKELETAL: Denies back pain, joint pain, or myalgia. NEUROLOGIC: reports headache. Denies numbness, or weakness. PSYCHIATRIC: Denies anxiety or depression. All other systems reviewed are negative, except as documented in HPI. [facility] Past Medical History Medical History Patient denies significant medical history Social History Social History Smoking packs per day: 0.25 Smoking cigarettes per day: 5.0 Comments At time of signature, agree with nursing past medical, surgical, social and family history. There is no relevant family history pertinent to the presenting complaint. Exam Narrative: GENERAL: This is a well-nourished, well-developed patient, in no apparent distress. HEAD: normocephalic, atraumatic. EYES: PERRL. Sclera clear/white. Vision is grossly intact. EARS: External ears normal, auditory canals clear and without drainage, TMs normal without perforation. Hearing grossly intact. NOSE: External nose normal with no obvious nasal discharge, nares without redness, no rhinorrhea. THROAT: Mucous membranes moist, mild erythema with swelling. No exudates. tonsils 1+ bilaterally. NECK: Neck supple, non-tender without lymphadenopathy, masses or thyromegaly. CARDIOVASCULAR: Regular rate and rhythm without murmurs, gallops, or rubs. RESPIRATORY: Clear to auscultation. Breath sounds equal bilaterally. No wheezes, rales, or rhonchi. SKIN: warm, Dry, intact with no suspicious lesions or rash, good texture and turgor. NEURO: awake, alert, and oriented to person, place and time. There were no obvious focal neurologic abnormalities. EXTREMITIES: No joint tenderness, effusion, or edema noted. Course Course Level of Care: Express Care Visit Vital Signs Vital signs: Vital Signs Temperature 37.2 C 11/03/24 16:07 Pulse Rate 90 11/03/24 16:07 Respiratory Rate 20 11/03/24 16:07 Blood Pressure 118/62 11/03/24 16:07 Pulse Oximetry 95 11/03/24 16:07 Oxygen Delivery Room Air 11/03/24 16:07 Temperature 37.2 C 11/03/24 16:07 Pulse Rate 90 11/03/24 16:07 Respiratory Rate 20 11/03/24 16:07 Blood Pressure 118/62 11/03/24 16:07 Pulse Oximetry 95 11/03/24 16:07 Oxygen Delivery Room Air 11/03/24 16:07 reviewed MDM - URI/Sore Throat MDM Narrative Medical decision making narrative: positive rapid strep. Will treat patient with antibiotic. Patient is well-appearing, nontoxic. Patient is aware of diagnosis, understands and agrees to treatment plan. Anticipatory guidance given. Patient agrees to follow-up as directed and is aware of reasons to seek care at the emergency department. Portions of this record may have been created with voice recognition software Discharge Plan Discharge Clinical Impression: Strep throat Patient Disposition: Home, Self-Care Condition: Stable Instructions: Antibiotic Form, Strep Throat (ED) Additional Instructions: your strep test was positive today. Take antibiotic as prescribed until gone. Change toothbrush after taking antibiotic for 24 hours. Take Tylenol every 6-8 hours as needed for pain and fever. Drink at least 64 oz water a day. Follow-up with your primary care physician if symptoms are not improving. Patient Language: Luxembourgish Prescriptions: New azithromycin 250 mg tablet See Rx Instructions .ROUTE .COMPLEX Qty: 6 0RF Rx Instructions: For 250 mg dose pack: take 500 mg today (day 1), then 250 mg for 4 days (days 2-5) No Action pantoprazole 40 mg tablet,delayed release (DR/EC) 40 mg PO DIRECTED sertraline 50 mg tablet 50 mg PO DIRECTED trazodone 50 mg tablet 50 mg PO DIRECTED folic acid 1 mg tablet 1 mg PO DIRECTED Humira(CF) Pen 40 mg/0.4 mL pen injector kit 40 mg SUBCUT WEEKLY atorvastatin 10 mg tablet Follow-up/Referrals: Laura,JULIANA Daily [Primary Care Provider] - Time of Disposition: 16:51
[2024-11-03 16:42] LABS: EDSTREPNEGPOS1 Positive (Negative)
== END 2024-11-03 16:55 | disposition home or self-care (01) ==
PROVIDERS: Emergency Provider Nurse Practitioner Family; PCP Physician Assistant
DX: J02.0 Streptococcal pharyngitis (principal); F17.210 Nicotine dependence, cigarettes, uncomplicated
CPT/HCPCS: 87880; 99213; G0463

== ENCOUNTER 2025-02-21 09:09 | Emergency (ER) | payer OTHER, SELFPAY ==
[2025-02-21] VITALS (7 sets, daily range): BP systolic 88–107; BP diastolic 40–59; PULSE 72–86; RESP 16–32; TEMP 36.8–37; O2SAT 94–96
--- NOTE | ~2025-02-21 | CT_ITS ---
EXAMINATION: CT abdomen pelvis w con DATE: 02/21/2025 11:10 INDICATION: abdominal pain TECHNIQUE: Computed tomography (CT) of the abdomen and pelvis was performed with 100 mL Omnipaque-350 intravenous contrast. Automated exposure control and iterative reconstruction technique were employe d. The dose-length product was 348.45 mGy-cm. COMPARISON: 05/26/2022 FINDINGS: Lung bases are clear. Heart size is normal. No pericardial or pleural effusion. Small sliding-type hi atal hernia. Cholecystectomy clips the gallbladder fossa. Splenomegaly measuring 15.4 cm in cranial c audal length. Liver, pancreas, bilateral adrenal glands and right kidney are normal. 8 mm cyst at the lower pole the left kidney. There is mild colonic diverticulosis with a sigmoid predominance. There is no adjacent inflammatory change to suggest diverticulitis. Small bowel and appendix are normal. B ladder is normal. The uterus is not identified and has likely been surgically resected. Mild thoracic and upper lumbar spondylosis. IMPRESSION: 1. No acute intra-abdominal/pelvic process. 2. Small sliding-type hiatal hernia. 3. Nonspecific splenomegaly, new since prior study. Reviewed, dictated and finalized at location B.
[2025-02-21] MEDS: SODIUM CHLORIDE 0.9% IV 1,000 ML 999 ML IV CONT (09:43)
[2025-02-21] MEDS: ONDANSETRON INJ 4 MG/2 ML VIAL IV PUSH (09:44)
--- OUTSIDE RECORDS SUMMARY | 2025-02-21 09:45 | XMS_ITS | Clinical Summary ---
Author Organization [facility] Address [address] [place] [address] Care Team Providers Care Patents Examiner Name Role Phone Abimbola Sanchez PA-C Primary Care Provider [phone] Source Comments [facility],non-owned Affiliates and Associated Physician Practices is amultiple site organization consisting of ambulatory clinics and hospital sitesin [place], [place], [place] and [place]. This disclosure is being madepursuant to the Care Everywhere program and may not contain all information available regarding this patient. Last updated 18.[facility] Allergies Active Allergy Reactions Criticality Noted Date Comments Latex Other Low 10/14/2017 Skin peeling [place] Unknown 11/26/2023 Medications * Be aware that medications may not be up to date on this document. Alwaysverify current medications with the patient. ergocalciferol (Drisdol) 1.25 MG (95147 UT) capsule Active traZODone (Desyrel) 50 MG tablet Take 1 (one) tablet by mouth at bedtime Active atorvastatin (Lipitor) 10 MG tablet 02/25/20 24 Active sertraline (Zoloft) 100 MG tablet TAKE 1 TABLET BY MOUTH ONCE DAILY AT BEDTIME FOR DEPRESSION 02/24/20 24 Active pantoprazole EC (Protonix) 40 MG tablet Take 1 (one) tablet by mouth 2 times daily for 21 days 42 tablet 03/01/20 24 Active nitrofurantoin monohyd macro crystals (Macrobid) 100 MG capsule Take 1 (one) capsule by mouth 2 times daily with morning and evening meal 14 capsule 07/08/20 24 Active Additional Information Patient not taking.Reported on 02/14/2025 folic acid (Folvite) 1 MG tablet Take 1 tablet by mouth once daily 90 tablet 3 09/13/20 24 Active methotrexate 2.5 MG tabletIndication s:Undifferentiat ed inflammatory arthritis Take 6 (six) tablets by mouth every 7 days (once a week) 78 tablet 02/11/20 25 Active golimumab (Simponi) 50 MG/0.5ML auto-injectorInd ications:Psoriat ic arthritis (HCC) Inject 0.5 mL subcutaneously every 30 days 1 mL 5 02/15/20 25 Active methotrexate 2.5 MG tabletIndication s:Undifferentiat ed inflammatory arthritis TAKE 6 TABLETS BY MOUTH ONCE A WEEK 78 tablet 11/05/19 25 025 Discontin ued(Reord er) Adalimumab-aaty (Yuflyma) 40 MG/0.4ML injection Inject 0.4 mL subcutaneously every 7 days 1.6 mL 5 12/02/19 25 025 Discontin ued(Clini nicky Decision) adalimumab (Humira, 2 Pen,) 40 MG/0.4ML injection 025 Discontin ued(Clini nicky Decision) Encounters Date Type Department Care Team Description 02/14/2025 11:35 AM CDT - 02/14/2025 11:59 PM CDT Hospital Encounter [facility] [address] [place] [address] Shae Germain MD Rheumatology Discharge Disposition: Home or Self Care 02/14/2025 10:40 AM CDT Office Visit [facility] - Rheumatology [address], [address] [place] [phone] Shae Germain MD Inflammatory arthritis (Primary Dx); Psoriatic arthritis (HCC) 02/14/2025 Results Follow-Up [facility] - Rheumatology [address] [place] [address], [address] [place] [address] Shae Germain MD 02/07/2025 Refill [facility] - Rheumatology [address], [address] [place] [phone] Shae Germain MD MEDICATION REFILL 02/04/2025 Refill [facility] - Rheumatology [address] [place] [id number] Shae Germain MD MEDICATION REFILL 01/10/2025 Refill [facility] - Rheumatology [address] [place] [address] Shae Germain MD Refill Request 12/05/2024 Telephone [facility] - Rheumatology [address] [place] [address], [address] [place] [address] Shae Germain MD Medication Prior Auth Request 12/04/2024 Telephone [facility] Rheumatology [address] [place] [address], [address] [place] [phone] Shae Germain MD Medication Prior Auth Request from Last 3 Months Social History Tobacco Use Types Packs/Day Years Used Date Smoking Tobacco: Former Cigarettes Q uit: 2020 Smokeless Tobacco: Never Alcohol Use Standard Drinks/Week Comments Not Currently 0 (1 standard drink = 0.6 oz pur e alcohol) PHQ-2 Answer Date Recorded Patient Health Questionnaire-2 Score 0 02/14/2025 Comments Unknown Sex and Gender Information Value Date Recorded Sex Assigned at Not on file Legal Sex Female 6:00 AM [employer] Gender Identity Not on file Sexual Orientation Not on file Last Filed Vital Signs Vital Sign Reading Time Taken Comments Blood Pressure 122/72 02/14/2025 10:38 AM CDT Pulse 58 02/14/2025 10:38 AM CDT Temperature 36.1 C (96.9 F) 02/14/2025 10:38 AM CDT Respiratory Rate 16 02/14/2025 10:38 AM CDT Oxygen Saturation 96% 02/14/2025 10:38 AM CDT Inhaled Oxygen Concentration - - Weight 72.6 kg (160 lb) 02/14/2025 10:38 AM CDT Height 160 cm (5' 3 ) 07/05/2024 10:17 AM CDT Body Mass Index 28.34 07/05/2024 10:17 AM CDT Plan of Treatment Upcoming Encounters Date Type Department Care Team (Late st Contact Info) Description 06/13/2025 11:20 AM CDT Office Visit [facility] - Rheumatology [address], [address] [place] [address] Shae Germain MD [address] [facility] [place] [address] Health Maintenance Due Date Last Done Comments BONE DENSITY TESTING 1960 COLOGUARD (AGES 45-75) - COLON CA SCREENING 1958 COLON MONITORING 1958 COLONOSCOPY - COLON CA SCREENING 1958 CT COLONOGRAPHY - COLON CA SCREENING 1958 Colorectal Cancer Screening 1958 FIT - COLON CA SCREENING 1958 FLEX SIG - COLON CA SCREENING 1958 MEDICARE AWV 12 MONTHS 1958 DTAP/TDAP/TD VACCINES (1 - Tdap) 1977 PNEUMOCOCCAL VACCINE 50+ (1 of 1 - PCV) 2008 ZOSTER VACCINE (1 of 2) 2008 Respiratory Syncytial Virus (RSV) Vaccine Pt: or over 60 yrs (1 - Risk 60-74 years 1-dose series) 2018 MAMMOGRAM 05/30/2024 05/30/2022, 0601/2020, 10/27/2014, Additional history exists COVID-19 VACCINE ( season) 2024 01/17/2021, 12/26/2020 INFLUENZA VACCINE (Season Ended) 2025 09/10/2022, 09/14/2021, 08/11/2020 SCREENING FOR DIABETES 02/10/2028 , 10/14/2024, 06/18/2024, Additional history exists HEPATITIS C SCREENING Completed 03/01/2024, 022 DEPRESSION SCREENING Completed 02/14/2025, 11/22/2022, 09/24/2022 HEPATITIS B VACCINE Aged Out No longe r eligible based on patient's age to complete this topic HIB VACCINE Aged Out No longer eligi ble based on patient's age to complete this topic HPV VACCINE Aged Out No longer eligi ble based on patient's age to complete this topic MENINGOCOCCAL (Group B) VACCINE SHARED DECISION-MAKING Aged Out No longer eligible based on patient's age to complete this topic MENINGOCOCCAL GROUPS A/C/Y/W VACCINE Aged Out No longer eligible based on patient's age to complete this topic Procedures Procedure Name Priority Date/Time Associated Diagnosis Comments XR KNEE BILAT 3VW Routine 02/14/2025 12: 12 PM CDT Inflammatory arthritis XR SHOULDER BILAT 2VW OR MORE Routine 02/14/2025 12:12 PM CDT Inflammatory arthritis XR WRIST BILAT 3VW OR MORE Routine 02/14/2025 12:12 PM CDT Inflammatory arthritis XR HAND BILAT 3VW OR MORE Routine 02/14/2025 12:12 PM CDT Inflammatory arthritis XR ELBOW LEFT 2VW Routine 02/14/2025 12: 12 PM CDT Inflammatory arthritis CBC W AUTO DIFFERENTIAL Routine 02/09/2025 3:47 PM CDT Undifferentiated inflammatory arthritis High risk medication use COMPREHENSIVE METABOLIC PANEL Routine 02/09/2025 3:47 PM CDT Undifferentiated inflammatory arthritis High risk medication use ERYTHROCYTE SEDIMENTATION RATE Routine 02/09/2025 3:47 PM CDT Undifferentiated inflammatory arthritis High risk medication use C-REACTIVE PROTEIN Routine 02/09/2025 3: 47 PM CDT Undifferentiated inflammatory arthritis High risk medication use HEPATITIS SCREEN ACUTE ([facility]) Routine 03/01/2024 10:08 AM CDT Inflammatory arthritis Encounter for other specified special examinations from Last 3 Months or Most Recently Relevant to Health Maintenance Results * XR Wrist Bilat 3Vw or More (02/14/2025 12:12 PM CDT) Anatomical Region Laterality Modality Wrist / Hand, Upper Extremity Ra diographic Imaging 02/14/2025 1:31 PM CDT Narrative 02/14/2025 1:38 PM CDT PROCEDURE: XR WRIST BILAT 3VW OR MORE, XR KNEE BILAT 3VW, XR SHOULDER BILAT 2VW OR MORE, XR HAND BILAT 3VW OR MORE, XR ELBOW LEFT 2VW DATE/TIME OF EXAM: 02/14/2025 12:12 PM CLINICAL INFORMATION: None relevant/not provided if blank. Indication: M19.90: Unspecified osteoarthritis, unspecified site EXAMINATIONS: 1.XR WRIST BILAT 3VW OR MORE 2.XR KNEE BILAT 3VW 3.XR SHOULDER BILAT 2VW OR MORE 4.XR HAND BILAT 3VW OR MORE 5.XR ELBOW LEFT 2VW HISTORY: Inflammatory arthritis COMPARISON: None. FINDINGS/IMPRESSION: 1.No resorptive/subchondral cystic changes to indicate inflammatory osteoarthritis is identified in the imaged joints, throughout. 2.No acute fracture, dislocation, suspicious intrinsic bony lesions, or suspicious soft tissue abnormalities are identified in bilateral wrists, bilateral hands, left elbow or bilateral shoulder.. 3.There is mild osteoarthritis of bilateral acromioclavicular joints without osteophytosis. The joint space of left acromioclavicular joint is more narrowed than the right acromioclavicular joint. No significant osteoarthritis in the glenohumeral joint is identified and there is no evidence of subacromial stenosis on either side. Alignment of the bilateral shoulders is anatomic. 4.No enthesopathy, arthritic changes, joint effusion or bursitis is seen in the left elbow. 5.Mild osteoarthritis of the interphalangeal joints and the first metacarpophalangeal joints of both hands is symmetrically present. No significant osteoarthritis of radiocarpal joints, carpal joints or carpometacarpal joints is identified on either side and the wrists are symmetric. The carpal rows and the carpal joints are normally maintained. 6.The imaged ribs and imaged portion of the lungs are unremarkable. > Interpreting Provider: Piotr Cazares MD on 02/14/2025 1:38 PM Procedure Note Piotr Cazares MD - 02/14/2025 PROCEDURE: XR WRIST BILAT 3VW OR MORE, XR KNEE BILAT 3VW, XR SHOULDER BILAT 2VW OR MORE, XR HAND BILAT 3VW OR MORE, XR ELBOW LEFT 2VW DATE/TIME OF EXAM: 02/14/2025 12:12 PM CLINICAL INFORMATION: None relevant/not provided if blank. Indication: M19.90: Unspecified osteoarthritis, unspecified site EXAMINATIONS: 1.XR WRIST BILAT 3VW OR MORE 2.XR KNEE BILAT 3VW 3.XR SHOULDER BILAT 2VW OR MORE 4.XR HAND BILAT 3VW OR MORE 5.XR ELBOW LEFT 2VW HISTORY: Inflammatory arthritis COMPARISON: None. FINDINGS/IMPRESSION: 1.No resorptive/subchondral cystic changes to indicate inflammatory osteoarthritis is identified in the imaged joints, throughout. 2.No acute fracture, dislocation, suspicious intrinsic bony lesions, or suspicious soft tissue abnormalities are identified in bilateral wrists, bilateral hands, left elbow or bilateral shoulder.. 3.There is mild osteoarthritis of bilateral acromioclavicular joints without osteophytosis. The joint space of left acromioclavicular jointis more narrowed than the right acromioclavicular joint. No significant osteoarthritis in the glenohumeral joint is identified and there is no evidence of subacromial stenosis on either side. Alignment of thebilateral shoulders is anatomic. 4.No enthesopathy, arthritic changes, joint effusion or bursitis is seenin the left elbow. 5.Mild osteoarthritis of the interphalangeal joints and the first metacarpophalangeal joints of both hands is symmetrically present. No significant osteoarthritis of radiocarpal joints, carpal joints or carpometacarpal joints is identified on either side and the wrists are symmetric. The carpal rows and the carpal joints are normallymaintained. 6.The imaged ribs and imaged portion of the lungs are unremarkable. > Interpreting Provider: Piotr Cazares MD on 02/14/2025 1:38 PM Shae Germain MD DIAGNOSTIC IMAGING ORDERABLES Fi nal Result * XR Knee Bilat 3Vw (02/14/2025 12:12 PM CDT) Anatomical Region Laterality Modality Lower Extremity Radiographic Migdalia ging 02/14/2025 1:31 PM CDT Narrative 02/14/2025 1:38 PM CDT PROCEDURE: XR WRIST BILAT 3VW OR MORE, XR KNEE BILAT 3VW, XR SHOULDER BILAT 2VW OR MORE, XR HAND BILAT 3VW OR MORE, XR ELBOW LEFT 2VW DATE/TIME OF EXAM: 02/14/2025 12:12 PM CLINICAL INFORMATION: None relevant/not provided if blank. Indication: M19.90: Unspecified osteoarthritis, unspecified site EXAMINATIONS: 1.XR WRIST BILAT 3VW OR MORE 2.XR KNEE BILAT 3VW 3.XR SHOULDER BILAT 2VW OR MORE 4.XR HAND BILAT 3VW OR MORE 5.XR ELBOW LEFT 2VW HISTORY: Inflammatory arthritis COMPARISON: None. FINDINGS/IMPRESSION: 1.No resorptive/subchondral cystic changes to indicate inflammatory osteoarthritis is identified in the imaged joints, throughout. 2.No acute fracture, dislocation, suspicious intrinsic bony lesions, or suspicious soft tissue abnormalities are identified in bilateral wrists, bilateral hands, left elbow or bilateral shoulder.. 3.There is mild osteoarthritis of bilateral acromioclavicular joints without osteophytosis. The joint space of left acromioclavicular joint is more narrowed than the right acromioclavicular joint. No significant osteoarthritis in the glenohumeral joint is identified and there is no evidence of subacromial stenosis on either side. Alignment of the bilateral shoulders is anatomic. 4.No enthesopathy, arthritic changes, joint effusion or bursitis is seen in the left elbow. 5.Mild osteoarthritis of the interphalangeal joints and the first metacarpophalangeal joints of both hands is symmetrically present. No significant osteoarthritis of radiocarpal joints, carpal joints or carpometacarpal joints is identified on either side and the wrists are symmetric. The carpal rows and the carpal joints are normally maintained. 6.The imaged ribs and imaged portion of the lungs are unremarkable. > Interpreting Provider: Piotr Cazares MD on 02/14/2025 1:38 PM Procedure Note Piotr Cazares MD - 02/14/2025 PROCEDURE: XR WRIST BILAT 3VW OR MORE, XR KNEE BILAT 3VW, XR SHOULDER BILAT 2VW OR MORE, XR HAND BILAT 3VW OR MORE, XR ELBOW LEFT 2VW DATE/TIME OF EXAM: 02/14/2025 12:12 PM CLINICAL INFORMATION: None relevant/not provided if blank. Indication: M19.90: Unspecified osteoarthritis, unspecified site EXAMINATIONS: 1.XR WRIST BILAT 3VW OR MORE 2.XR KNEE BILAT 3VW 3.XR SHOULDER BILAT 2VW OR MORE 4.XR HAND BILAT 3VW OR MORE 5.XR ELBOW LEFT 2VW HISTORY: Inflammatory arthritis COMPARISON: None. FINDINGS/IMPRESSION: 1.No resorptive/subchondral cystic changes to indicate inflammatory osteoarthritis is identified in the imaged joints, throughout. 2.No acute fracture, dislocation, suspicious intrinsic bony lesions, or suspicious soft tissue abnormalities are identified in bilateral wrists, bilateral hands, left elbow or bilateral shoulder.. 3.There is mild osteoarthritis of bilateral acromioclavicular joints without osteophytosis. The joint space of left acromioclavicular jointis more narrowed than the right acromioclavicular joint. No significant osteoarthritis in the glenohumeral joint is identified and there is no evidence of subacromial stenosis on either side. Alignment of thebilateral shoulders is anatomic. 4.No enthesopathy, arthritic changes, joint effusion or bursitis is seenin the left elbow. 5.Mild osteoarthritis of the interphalangeal joints and the first metacarpophalangeal joints of both hands is symmetrically present. No significant osteoarthritis of radiocarpal joints, carpal joints or carpometacarpal joints is identified on either side and the wrists are symmetric. The carpal rows and the carpal joints are normallymaintained. 6.The imaged ribs and imaged portion of the lungs are unremarkable. > Interpreting Provider: Piotr Cazares MD on 02/14/2025 1:38 PM Shae Germain MD DIAGNOSTIC IMAGING ORDERABLES Fi nal Result * XR Hand Bilat 3Vw or More (02/14/2025 12:12 PM CDT) Anatomical Region Laterality Modality Upper Extremity, Wrist / Hand Ra diographic Imaging 02/14/2025 1:31 PM CDT Narrative 02/14/2025 1:38 PM CDT PROCEDURE: XR WRIST BILAT 3VW OR MORE, XR KNEE BILAT 3VW, XR SHOULDER BILAT 2VW OR MORE, XR HAND BILAT 3VW OR MORE, XR ELBOW LEFT 2VW DATE/TIME OF EXAM: 02/14/2025 12:12 PM CLINICAL INFORMATION: None relevant/not provided if blank. Indication: M19.90: Unspecified osteoarthritis, unspecified site EXAMINATIONS: 1.XR WRIST BILAT 3VW OR MORE 2.XR KNEE BILAT 3VW 3.XR SHOULDER BILAT 2VW OR MORE 4.XR HAND BILAT 3VW OR MORE 5.XR ELBOW LEFT 2VW HISTORY: Inflammatory arthritis COMPARISON: None. FINDINGS/IMPRESSION: 1.No resorptive/subchondral cystic changes to indicate inflammatory osteoarthritis is identified in the imaged joints, throughout. 2.No acute fracture, dislocation, suspicious intrinsic bony lesions, or suspicious soft tissue abnormalities are identified in bilateral wrists, bilateral hands, left elbow or bilateral shoulder.. 3.There is mild osteoarthritis of bilateral acromioclavicular joints without osteophytosis. The joint space of left acromioclavicular joint is more narrowed than the right acromioclavicular joint. No significant osteoarthritis in the glenohumeral joint is identified and there is no evidence of subacromial stenosis on either side. Alignment of the bilateral shoulders is anatomic. 4.No enthesopathy, arthritic changes, joint effusion or bursitis is seen in the left elbow. 5.Mild osteoarthritis of the interphalangeal joints and the first metacarpophalangeal joints of both hands is symmetrically present. No significant osteoarthritis of radiocarpal joints, carpal joints or carpometacarpal joints is identified on either side and the wrists are symmetric. The carpal rows and the carpal joints are normally maintained. 6.The imaged ribs and imaged portion of the lungs are unremarkable. > Interpreting Provider: Piotr Cazares MD on 02/14/2025 1:38 PM Procedure Note Piotr Cazares MD - 02/14/2025 PROCEDURE: XR WRIST BILAT 3VW OR MORE, XR KNEE BILAT 3VW, XR SHOULDER BILAT 2VW OR MORE, XR HAND BILAT 3VW OR MORE, XR ELBOW LEFT 2VW DATE/TIME OF EXAM: 02/14/2025 12:12 PM CLINICAL INFORMATION: None relevant/not provided if blank. Indication: M19.90: Unspecified osteoarthritis, unspecified site EXAMINATIONS: 1.XR WRIST BILAT 3VW OR MORE 2.XR KNEE BILAT 3VW 3.XR SHOULDER BILAT 2VW OR MORE 4.XR HAND BILAT 3VW OR MORE 5.XR ELBOW LEFT 2VW HISTORY: Inflammatory arthritis COMPARISON: None. FINDINGS/IMPRESSION: 1.No resorptive/subchondral cystic changes to indicate inflammatory osteoarthritis is identified in the imaged joints, throughout. 2.No acute fracture, dislocation, suspicious intrinsic bony lesions, or suspicious soft tissue abnormalities are identified in bilateral wrists, bilateral hands, left elbow or bilateral shoulder.. 3.There is mild osteoarthritis of bilateral acromioclavicular joints without osteophytosis. The joint space of left acromioclavicular jointis more narrowed than the right acromioclavicular joint. No significant osteoarthritis in the glenohumeral joint is identified and there is no evidence of subacromial stenosis on either side. Alignment of thebilateral shoulders is anatomic. 4.No enthesopathy, arthritic changes, joint effusion or bursitis is seenin the left elbow. 5.Mild osteoarthritis of the interphalangeal joints and the first metacarpophalangeal joints of both hands is symmetrically present. No significant osteoarthritis of radiocarpal joints, carpal joints or carpometacarpal joints is identified on either side and the wrists are symmetric. The carpal rows and the carpal joints are normallymaintained. 6.The imaged ribs and imaged portion of the lungs are unremarkable. > Interpreting Provider: Piotr Cazares MD on 02/14/2025 1:38 PM Shae Germain MD DIAGNOSTIC IMAGING ORDERABLES Fi nal Result * XR Shoulder Bilat 2Vw or More (02/14/2025 12:12 PM CDT) Anatomical Region Laterality Modality Upper Extremity Radiographic Migdalia ging 02/14/2025 1:31 PM CDT Narrative 02/14/2025 1:38 PM CDT PROCEDURE: XR WRIST BILAT 3VW OR MORE, XR KNEE BILAT 3VW, XR SHOULDER BILAT 2VW OR MORE, XR HAND BILAT 3VW OR MORE, XR ELBOW LEFT 2VW DATE/TIME OF EXAM: 02/14/2025 12:12 PM CLINICAL INFORMATION: None relevant/not provided if blank. Indication: M19.90: Unspecified osteoarthritis, unspecified site EXAMINATIONS: 1.XR WRIST BILAT 3VW OR MORE 2.XR KNEE BILAT 3VW 3.XR SHOULDER BILAT 2VW OR MORE 4.XR HAND BILAT 3VW OR MORE 5.XR ELBOW LEFT 2VW HISTORY: Inflammatory arthritis COMPARISON: None. FINDINGS/IMPRESSION: 1.No resorptive/subchondral cystic changes to indicate inflammatory osteoarthritis is identified in the imaged joints, throughout. 2.No acute fracture, dislocation, suspicious intrinsic bony lesions, or suspicious soft tissue abnormalities are identified in bilateral wrists, bilateral hands, left elbow or bilateral shoulder.. 3.There is mild osteoarthritis of bilateral acromioclavicular joints without osteophytosis. The joint space of left acromioclavicular joint is more narrowed than the right acromioclavicular joint. No significant osteoarthritis in the glenohumeral joint is identified and there is no evidence of subacromial stenosis on either side. Alignment of the bilateral shoulders is anatomic. 4.No enthesopathy, arthritic changes, joint effusion or bursitis is seen in the left elbow. 5.Mild osteoarthritis of the interphalangeal joints and the first metacarpophalangeal joints of both hands is symmetrically present. No significant osteoarthritis of radiocarpal joints, carpal joints or carpometacarpal joints is identified on either side and the wrists are symmetric. The carpal rows and the carpal joints are normally maintained. 6.The imaged ribs and imaged portion of the lungs are unremarkable. > Interpreting Provider: Piotr Cazares MD on 02/14/2025 1:38 PM Procedure Note Piotr Cazares MD - 02/14/2025 PROCEDURE: XR WRIST BILAT 3VW OR MORE, XR KNEE BILAT 3VW, XR SHOULDER BILAT 2VW OR MORE, XR HAND BILAT 3VW OR MORE, XR ELBOW LEFT 2VW DATE/TIME OF EXAM: 02/14/2025 12:12 PM CLINICAL INFORMATION: None relevant/not provided if blank. Indication: M19.90: Unspecified osteoarthritis, unspecified site EXAMINATIONS: 1.XR WRIST BILAT 3VW OR MORE 2.XR KNEE BILAT 3VW 3.XR SHOULDER BILAT 2VW OR MORE 4.XR HAND BILAT 3VW OR MORE 5.XR ELBOW LEFT 2VW HISTORY: Inflammatory arthritis COMPARISON: None. FINDINGS/IMPRESSION: 1.No resorptive/subchondral cystic changes to indicate inflammatory osteoarthritis is identified in the imaged joints, throughout. 2.No acute fracture, dislocation, suspicious intrinsic bony lesions, or suspicious soft tissue abnormalities are identified in bilateral wrists, bilateral hands, left elbow or bilateral shoulder.. 3.There is mild osteoarthritis of bilateral acromioclavicular joints without osteophytosis. The joint space of left acromioclavicular jointis more narrowed than the right acromioclavicular joint. No significant osteoarthritis in the glenohumeral joint is identified and there is no evidence of subacromial stenosis on either side. Alignment of thebilateral shoulders is anatomic. 4.No enthesopathy, arthritic changes, joint effusion or bursitis is seenin the left elbow. 5.Mild osteoarthritis of the interphalangeal joints and the first metacarpophalangeal joints of both hands is symmetrically present. No significant osteoarthritis of radiocarpal joints, carpal joints or carpometacarpal joints is identified on either side and the wrists are symmetric. The carpal rows and the carpal joints are normallymaintained. 6.The imaged ribs and imaged portion of the lungs are unremarkable. > Interpreting Provider: Piotr Cazares MD on 02/14/2025 1:38 PM Shae Germain MD DIAGNOSTIC IMAGING ORDERABLES Fi nal Result * XR Elbow Left 2Vw (02/14/2025 12:12 PM CDT) Anatomical Region Laterality Modality Upper Extremity Radiographic Migdalia ging 02/14/2025 1:31 PM CDT Narrative 02/14/2025 1:38 PM CDT PROCEDURE: XR WRIST BILAT 3VW OR MORE, XR KNEE BILAT 3VW, XR SHOULDER BILAT 2VW OR MORE, XR HAND BILAT 3VW OR MORE, XR ELBOW LEFT 2VW DATE/TIME OF EXAM: 02/14/2025 12:12 PM CLINICAL INFORMATION: None relevant/not provided if blank. Indication: M19.90: Unspecified osteoarthritis, unspecified site EXAMINATIONS: 1.XR WRIST BILAT 3VW OR MORE 2.XR KNEE BILAT 3VW 3.XR SHOULDER BILAT 2VW OR MORE 4.XR HAND BILAT 3VW OR MORE 5.XR ELBOW LEFT 2VW HISTORY: Inflammatory arthritis COMPARISON: None. FINDINGS/IMPRESSION: 1.No resorptive/subchondral cystic changes to indicate inflammatory osteoarthritis is identified in the imaged joints, throughout. 2.No acute fracture, dislocation, suspicious intrinsic bony lesions, or suspicious soft tissue abnormalities are identified in bilateral wrists, bilateral hands, left elbow or bilateral shoulder.. 3.There is mild osteoarthritis of bilateral acromioclavicular joints without osteophytosis. The joint space of left acromioclavicular joint is more narrowed than the right acromioclavicular joint. No significant osteoarthritis in the glenohumeral joint is identified and there is no evidence of subacromial stenosis on either side. Alignment of the bilateral shoulders is anatomic. 4.No enthesopathy, arthritic changes, joint effusion or bursitis is seen in the left elbow. 5.Mild osteoarthritis of the interphalangeal joints and the first metacarpophalangeal joints of both hands is symmetrically present. No significant osteoarthritis of radiocarpal joints, carpal joints or carpometacarpal joints is identified on either side and the wrists are symmetric. The carpal rows and the carpal joints are normally maintained. 6.The imaged ribs and imaged portion of the lungs are unremarkable. > Interpreting Provider: Piotr Cazares MD on 02/14/2025 1:38 PM Procedure Note Piotr Cazares MD - 02/14/2025 PROCEDURE: XR WRIST BILAT 3VW OR MORE, XR KNEE BILAT 3VW, XR SHOULDER BILAT 2VW OR MORE, XR HAND BILAT 3VW OR MORE, XR ELBOW LEFT 2VW DATE/TIME OF EXAM: 02/14/2025 12:12 PM CLINICAL INFORMATION: None relevant/not provided if blank. Indication: M19.90: Unspecified osteoarthritis, unspecified site EXAMINATIONS: 1.XR WRIST BILAT 3VW OR MORE 2.XR KNEE BILAT 3VW 3.XR SHOULDER BILAT 2VW OR MORE 4.XR HAND BILAT 3VW OR MORE 5.XR ELBOW LEFT 2VW HISTORY: Inflammatory arthritis COMPARISON: None. FINDINGS/IMPRESSION: 1.No resorptive/subchondral cystic changes to indicate inflammatory osteoarthritis is identified in the imaged joints, throughout. 2.No acute fracture, dislocation, suspicious intrinsic bony lesions, or suspicious soft tissue abnormalities are identified in bilateral wrists, bilateral hands, left elbow or bilateral shoulder.. 3.There is mild osteoarthritis of bilateral acromioclavicular joints without osteophytosis. The joint space of left acromioclavicular jointis more narrowed than the right acromioclavicular joint. No significant osteoarthritis in the glenohumeral joint is identified and there is no evidence of subacromial stenosis on either side. Alignment of thebilateral shoulders is anatomic. 4.No enthesopathy, arthritic changes, joint effusion or bursitis is seenin the left elbow. 5.Mild osteoarthritis of the interphalangeal joints and the first metacarpophalangeal joints of both hands is symmetrically present. No significant osteoarthritis of radiocarpal joints, carpal joints or carpometacarpal joints is identified on either side and the wrists are symmetric. The carpal rows and the carpal joints are normallymaintained. 6.The imaged ribs and imaged portion of the lungs are unremarkable. > Interpreting Provider: Piotr Cazares MD on 02/14/2025 1:38 PM Shae Germain MD DIAGNOSTIC IMAGING ORDERABLES Fi nal Result * C-REACTIVE PROTEIN (02/09/2025 3:47 PM CDT) Pathologist [facility] C-Reactive Protein <5.0 <8.0 mg/L [facility] Comment: REPORT COMMENT: FASTING:NO Test Performed at: [facility] [address] YAKOV DAILEY MD Blood BLOOD SPECIMEN / Unknown 02/09/2025 3:47 PM CDT 02/09/2025 3:51 PM CDT Shae Germain MD LAB - CHEMISTRY ORDERABLES Final Result Performing Organization Address [facility] Co de Phone Number [address] [address] * ERYTHROCYTE SEDIMENTATION RATE (02/09/2025 3:47 PM CDT) [facility] Erythrocyte Sedimentation Rate Westergren 16 < OR = 30 mm/h [facility] Comment: Test Performed at: [facility] [address] YAKOV DAILEY MD Blood BLOOD SPECIMEN / Unknown 02/09/2025 3:47 PM CDT 02/09/2025 3:51 PM CDT Shae Germain MD LAB - HEMATOLOGY ORDERABLES Marlee l Result Performing Organization Address [facility] Co de Phone Number [address] [address] * (ABNORMAL) CBC WITH DIFFERENTIAL (02/09/2025 3:47 PM CDT) [facility] White Blood Cell Count 10.8 3.8 - 10.8 Thousand/ uL [facility] RBC 4.33 3.80 - 5.10 Million/u L [facility] Hemoglobin 12.8 11.7 - 15.5 g/dL [facility] Hematocrit 38.6 35.0 - 45.0 % [facility] MCV 89.1 80.0 - 100.0 fL [facility] MCH 29.6 27.0 - 33.0 pg [facility] MCHC 33.2 32.0 - 36.0 g/dL [facility] Comment: For adults, a slight decrease in the calculated MCHC value (in the range of 30 to 32 g/dL) is most likely not clinically significant; however, it should be interpreted with caution in correlation with other red cell parameters and the patient's clinical condition. RDW 13.2 11.0 - 15.0 % [facility] Platelet Count 258 140 - 400 Thousand/ uL [facility] MPV 10.0 7.5 - 12.5 fL [facility] Neutrophil Absolute 5843 1500 - 7800 cells/uL [facility] Lymphocytes Absolute 4147(H) 850 - 3900 cells/uL [facility] Absolute Monocytes 583 200 - 950 cells/uL [facility] Eosinophils Absolute 162 15 - 500 cells/uL [facility] Basophils Absolute 65 0 - 200 cells/uL [facility] Granulocytes % 54.1 % [facility] Lymphocytes % 38.4 % [facility] Monocytes % 5.4 % [facility] Eosinophils % 1.5 % [facility] Basophils % 0.6 % [facility] Comment: Test Performed at: [facility] [address] [place] [address] YAKOV DAILEY MD Blood BLOOD SPECIMEN / Unknown 02/09/2025 3:47 PM CDT 02/09/2025 3:51 PM CDT Shae Germain MD LAB - HEMATOLOGY ORDERABLES Marlee l Result [address] [address] * COMPREHENSIVE METABOLIC PANEL (02/09/2025 3:47 PM CDT) Glucose 112 65 - 139 mg/dL [facility] Comment: Non-fasting reference interval BUN 9 7 - 25 mg/dL [facility] Creatinine 1.02 0.50 - 1.05 mg/dL [facility] eGFR by Cystatin C 61 > OR = 60 mL/min/1. 73m2 [facility] BUN/Creatinine Ratio SEE NOTE: 6 - 22 (calc) [facility] Comment: Not Reported: BUN and Creatinine are within reference range. Sodium 140 135 - 146 mmol/L [facility] Potassium 3.8 3.5 - 5.3 mmol/L [facility] Chloride 104 98 - 110 mmol/L [facility] CO2 30 20 - 32 mmol/L [facility] Calcium 9.4 8.6 - 10.4 mg/dL [facility] Protein Total 7.1 6.1 - 8.1 g/dL [facility] Albumin 4.3 3.6 - 5.1 g/dL [facility] Globulin Total 2.8 1.9 - 3.7 g/dL (calc) [facility] Albumin/Globulin Ratio 1.5 1.0 - 2.5 (calc) [facility] Bilirubin Total 0.4 0.2 - 1.2 mg/dL [facility] Alkaline Phosphatase 123 37 - 153 U/L [facility] AST 19 10 - 35 U/L [facility] ALT 12 6 - 29 U/L [facility] Comment: Test Performed at: [facility] [address] [place] [address] YAKOV DAILEY MD Blood BLOOD SPECIMEN / Unknown 02/09/2025 3:47 PM CDT 02/09/2025 3:51 PM CDT Shae Germain MD LAB - CHEMISTRY ORDERABLES Final Result Performing Organization Address [facility] Co de Phone Number [facility] [address] [place] [address] * HEPATITIS SCREEN ACUTE ([facility]) (03/01/2024 10:08 AM CDT) Hepatitis A Virus Antibody IgM Non Reactive Non Reactive [facility] INSURANCE BILL Hepatitis B Virus Surface Antigen Non Reactive Non Reactive [facility] INSURANCE BILL Hepatitis B Core Virus Antibody IgM Non Reactive Non Reactive [facility] INSURANCE BILL Hepatitis C Antibody Non Reactive Non Reactive [facility] INSURANCE BILL Comment: Non Reactive - Antibodies to Hepatitis C virus (HCV) were no t detected, result does not exclude early acute HCV infection. Blood BLOOD SPECIMEN / Unknown 03/01/2024 10:08 AM CDT 03/01/2024 Narrative Resulting Agency Comment Lab Testing performed at: [facility] [address] [facility] [id number] Shae Germain MD LAB - CHEMISTRY ORDERABLES Final Result Performing Organization Address City/[facility]/ZIP Co de Phone Number [facility] INSURANCE BILL [address] [place] [address] from Last 3 Months or Most Recently Relevant to Health Maintenance Insurance MEDICARE [employer]ET[employer] Care Teams Patents Examiner Relationship Specialty Start Date End Date Abimbola Sanchez PA-C [address] [place] [phone] PCP - General 11/22/22
--- OUTSIDE RECORDS SUMMARY | 2025-02-21 09:45 | XMS_ITS | Encounter Summary ---
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 Question Answer Date of Assessment Author Little interest or pleasure in doing things Not at all 02/14/2025 10:43 AM CDT Isabela Gonzales Feeling down, depressed, or hopeless Not at all 02/14/2025 10:43 AM CDT Isabela Gonzales Patient Health Questionnaire -2 Score 0 02/14/2025 10:43 AM CDT Isabela Gonzales documented as of this encounter Progress Notes * Shae Germain MD - 02/14/2025 9:43 PM CDT Xray shows degenerative arthritis in knees, small joints near bilateral shoulders, fingers, thumbs.No significant arthritis is seen in elbows, wrists. Patient can contact pcp to refer her to an orthopedic surgeon to evaluate knee arthritis. documented in this encounter Plan of Treatment Upcoming Encounters Date Type Department Care Team (Late st Contact Info) Description 06/13/2025 11:20 AM CDT Office Visit [facility] - Rheumatology [address], [address] [place] [address] Shae Germain MD [address] [place] [address] documented as of this encounter Visit Diagnoses Not on filedocumented in this encounter Care Teams Dinkey Press Operator Relationship Specialty Start Date End Date Abimbola Sanchez PA-C [address] [place] [phone] PCP - General 11/22/22 documented as of this encounter
--- OUTSIDE RECORDS SUMMARY | 2025-02-21 09:45 | XMS_ITS | Clinical Summary ---
Author Organization [facility] Address [address] [place] [address] Care Team Providers Care Streetcar Operator Name Role Phone Unavailable Primary Care Provider Unavailabl e Social History Tobacco Use Types Packs/Day Years Used Date Smoking Tobacco: Never Assessed Comments Unknown Sex and Gender Information Value Date Recorded Sex Assigned at Not on file Legal Sex Female 8:35 PM CDT Gender Identity Not on file Sexual Orientation Not on file Plan of Treatment Health Maintenance Due Date Last Done Comments Colorectal Cancer Screening Colonoscopy (10 Years) 1958 Hepatitis C 1976 DTaP, Tdap and Td Vaccines ( 1 - Tdap) 1977 Mammogram Screening 1998 Pneumococcal Vaccine: 50+ Ye ars (1 of 1 - PCV) 2008 Zoster Vaccines (1 of 2) 2008 Dexa Scan (General) 2023 COVID-19 Vaccine ( - 2023-2 5 season) 2024 RSV Immunization or 60+ Years (1 - 1-dose 75+ series) 2033 Meningococcal B Vaccine Aged Out No l onger eligible based on patient's age to complete this topic Meningococcal Vaccine Aged Out No skip thiago eligible based on patient's age to complete this topic RSV Immunizations Under 20 Months Aged Out No longer eligible based on patient's age to complete this topic
[2025-02-21 10:21] LABS: Basophils Absolute Auto 0.1 K/mm3 (0.0-0.1); Basophils Percent Auto 0.4 % (0.2-1.2); Eosinophils Absolute Auto 0.1 K/mm3 (0-0.3); Eosinophils Percent Auto 0.5 % (0-4.4); Hematocrit 34.3 % (37.0-47.0); Hemoglobin 11.1 g/dL (12.0-15.0); Immature Granulocyte Absolute 0.09 K/mm3 (0.00-0.031); Immature Granulocyte Percent A 0.6 % (0-0.5); Lymphocytes Absolute Auto 2.73 K/mm3 (0.9-3.2); Lymphocytes Percent Auto 16.9 % (18.3-44.2); Mean Corpuscular HGB Conc 32.4 g/dl (32-36); Mean Corpuscular Hemoglobin 28.5 pg (26-34); Mean Corpuscular Volume 87.9 fl (80-100); Mean Platelet Volume 9.2 fl (7.4-10.4); Monocytes Absolute Auto 1.3 K/mm3 (0.1-0.6); Monocytes Percent Auto 8.2 % (2.6-8.5); Neutrophils Absolute Auto 11.9 K/mm3 (1.3-6.7); Neutrophils Percent Auto 73.4 % (45.5-73.1); Platelet Count Result 201 k/mm3 (150-375); Red Cell Distribution Width 13.2 % (11.5-14.5); White Blood Count 16.2 K/mm3 (4.5-10.0)
--- OUTSIDE RECORDS SUMMARY | 2025-02-21 10:22 | XMS_ITS | Encounter Summary ---
Author Organization [facility] Address [address] [place] [address] Care Team Providers Care Oil Changer Name Role Phone Abimbola Sanchez PA-C Primary Care Provider [phone] Encounter Details Date Type Department Care Team (Late st Contact Info) Description 02/14/2025 Results Follow-Up [facility] - Rheumatology [address], [address] [place] [address] Shae Germain MD [facility] [place] [address] Social History Tobacco Use Types [...] on file 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
--- OUTSIDE RECORDS SUMMARY | 2025-02-21 10:22 | XMS_ITS | Clinical Summary ---
Author Organization [facility] Address [address] [place] [address] Care Team Providers Care Equipment Service Associate Name Role Phone Abimbola Sanchez PA-C Primary Care Provider Source Comments [facility],non-owned Affiliates and Associated Physician Practices is amultiple site organization consisting of ambulatory clinics and hospital sitesin [place], [place], [place] and [place]. This disclosure is being madepursuant to the Care Everywhere program and may not contain all information available regarding this patient. Last updated 18.[facility] Allergies Active Allergy Reactions Criticality Noted Date Comments Latex Other Low 10/14/2017 Skin peeling [place] Unknown 11/26/2023 Medications * Be aware that medications may not be up to date on this document. Alwaysverify current medications with the patient. ergocalciferol (Drisdol) 1.25 MG (04686 UT) capsule Active traZODone (Desyrel) 50 MG [...] - 02/14/2025 11:59 PM CDT Hospital Encounter [facility] [address] [facility] [facility] [place] [address] Shae Germain MD Rheumatology Discharge Disposition: Home or Self Care 02/14/2025 10:40 AM CDT Office Visit [facility] - Rheumatology [address], [address] [place] [address] Shae Germain MD Inflammatory arthritis (Primary Dx); Psoriatic arthritis (HCC) 02/14/2025 Results Follow-Up [facility] - Rheumatology [address] [place] [address], [address] [place] [address] Shae Germain MD 02/07/2025 Refill [facility] - Rheumatology [address], [address] [place] [phone] Shae Germain MD MEDICATION REFILL 02/04/2025 Refill [facility] - Rheumatology [address] [place] [address] Shae Germain MD MEDICATION REFILL 01/10/2025 Refill [facility] - Rheumatology [address] [place] [address] Shae Germain MD Refill Request 12/05/2024 Telephone [facility] - Rheumatology [address] [place] [address], [address] [place] [address] Shae Germain MD Medication Prior Auth Request 12/04/2024 Telephone [facility] Rheumatology [address] [place] [address], [address] [place] [phone] Shae Germain MD Medication Prior Auth Request [...] on file 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 Gender Identity Not on file Sexual Orientation [...] Description 06/13/2025 11:20 AM CDT Office Visit [facility] - Rheumatology [address], [address] [place] [address] Shae Germain MD [address] [facility] [place] [address] Health Maintenance Due Date Last Done [...] C-REACTIVE PROTEIN (02/09/2025 3:47 PM CDT) Pathologist [facility] C-Reactive Protein <5.0 <8.0 mg/L [facility] Comment: REPORT COMMENT: FASTING:NO Test Performed at: [email or web address] [address] YAKOV DAILEY MD Blood BLOOD SPECIMEN / Unknown 02/09/2025 3:47 PM CDT 02/09/2025 3:51 PM CDT Shae Germain MD LAB - CHEMISTRY ORDERABLES Final Result Performing Organization Address [facility] Co de Phone Number [address] [address] * ERYTHROCYTE SEDIMENTATION RATE (02/09/2025 3:47 PM CDT) [facility] Erythrocyte Sedimentation Rate Westergren 16 < OR = 30 mm/h [facility] Comment: Test Performed at: [email or web address] [address] YAKOV DAILEY MD Blood BLOOD SPECIMEN / Unknown 02/09/2025 3:47 PM CDT 02/09/2025 3:51 PM CDT Shae Germain MD LAB - HEMATOLOGY ORDERABLES Marlee l Result Performing Organization Address [facility] Co de Phone Number [address] [address] * (ABNORMAL) CBC WITH DIFFERENTIAL (02/09/2025 3:47 PM CDT) [facility] White Blood Cell Count 10.8 3.8 - [...] 0.6 % [facility] Comment: Test Performed at: [email or web address] [place] [address] [place] [address] YAKOV DAILEY MD Blood BLOOD SPECIMEN / Unknown 02/09/2025 3:47 PM CDT 02/09/2025 3:51 PM CDT Shae Germain MD LAB - HEMATOLOGY ORDERABLES Marlee l Result [address] [address] * COMPREHENSIVE METABOLIC PANEL (02/09/2025 3:47 PM [...] 29 U/L [facility] Comment: Test Performed at: [email or web address] [address] [place] [address] YAKOV DAILEY MD Blood BLOOD SPECIMEN / Unknown 02/09/2025 3:47 PM CDT 02/09/2025 3:51 PM CDT Shae Germain MD LAB - CHEMISTRY ORDERABLES Final Result Performing Organization Address [facility] Co de Phone Number [facility] [address] [place] [phone] * HEPATITIS SCREEN ACUTE ([facility]) (03/01/2024 10:08 [...] Resulting Agency Comment Lab Testing performed at: [facility] [address] [facility] [id number] Shae Germain MD LAB - CHEMISTRY ORDERABLES Final Result Performing Organization Address City/[facility]/ZIP Co de Phone Number [facility] INSURANCE BILL [address] [place] [address] from Last 3 Months or Most Recently Relevant to Health Maintenance Insurance MEDICARE AETNA Care Teams Equipment Service Associate Relationship Specialty Start Date End Date Abimbola Sanchez PA-C [address] [place] [phone] PCP - General 11/22/22
--- OUTSIDE RECORDS SUMMARY | 2025-02-21 10:22 | XMS_ITS | Clinical Summary ---
Author Organization [facility] Address [address] [place] [address] Care Team Providers Care Flat Folding Machine Operator Name Role Phone Unavailable Primary Care [...]
[2025-02-21 10:35] LABS: Alanine Aminotransferase 13 U/L (6-35); Albumin Level 3.9 g/dL (3.5-5.1); Alkaline Phosphatase 106 U/L (38-126); Anion Gap 8 mmol/L (4-12); Aspartate Amino Transferase 19 U/L (14-36); Bilirubin,Total 1.1 mg/dL (0.2-1.3); Blood Urea Nitrogen 16 mg/dL (7-17); Calcium 8.5 mg/dL (8.4-10.2); Carbon Dioxide 27 mmol/L (22-30); Chloride 100 mmol/L (98-107); Estimated CRCL calculation 46 ml/min; Estimated Glomerular Filt Rate > 60; Glucose 124 mg/dL (65-110); Lipase 25 U/L (23-300); Potassium 3.4 mmol/L (3.4-5.0); Sodium 135 mmol/L (137-145)
--- NOTE | 2025-02-21 12:27 | ED.GENADULT ---
HPI - General Adult General Chief complaint: Weakness Stated complaint: fever, chills Time Seen by Provider: 02/21/25 09:23 History of Present Illness HPI narrative: Patient is a 64-year-old female who presents the ER with nausea vomiting diarrhea. Ongoing over last week. Associated with fevers and chills. Unknown how many times she vomited yesterday or having time she had diarrhea. She has only had 1 episode of emesis today. No blood in stool. Related Data Home Medications ?Medication ?Instructions ?Recorded ?Confirmed ?Last Taken ?Type pantoprazole 40 mg tablet,delayed 40 mg PO DIRECTED 05/06/23 02/21/25 02/20/25 History release sertraline 50 mg tablet 100 mg PO DIRECTED 05/06/23 02/21/25 02/20/25 History adalimumab 40 mg/0.4 mL 40 mg subcut WEEKLY 09/30/23 02/21/25 02/06/25 History subcutaneous pen kit (Humira(CF) Pen) folic acid 1 mg tablet 1 mg PO DIRECTED 09/30/23 02/21/25 02/20/25 History trazodone 50 mg tablet 50 mg PO DIRECTED at bedtime 09/30/23 02/21/25 Unknown History atorvastatin 10 mg tablet 10 mg PO QPM 11/03/24 02/21/25 02/20/25 History methotrexate sodium 2.5 mg tablet 12.5 mg PO WEEKLY 02/21/25 02/21/25 02/06/25 History Allergies Allergy/AdvReac Type Severity Reaction Status Date / Time Penicillins Allergy Mild Anaphylaxis Verified 02/21/25 09:29 [id number]-[id number] Reductase Allergy Unknown Muscle Pain Verified 02/21/25 09:29 Inhibitor (Kwdoujh-Pmb-Fsg Reductase Inhibitor) Review of Systems Review of Systems: All systems reviewed & are unremarkable except as noted in HPI and below Constitutional: Constitutional: Reports no additional constitutional complaints ENT: Reports system reviewed and no additional complaints, except as documented Cardiovascular: Cardiovascular: Reports no additional cardiovascular complaints Respiratory: Respiratory: Reports no additional respiratory complaints Gastrointestinal: Gastrointestinal: Reports no additional gastrointestinal complaints [facility] Past Medical History Medical History Patient denies significant medical history Social History Social History Smoking packs per day: 0.25 Smoking cigarettes per day: 5.0 Exam Narrative: GENERAL: Well-appearing, well-nourished, and in no acute distress. HEAD: Normocephalic, atraumatic. ENT: Mucous membranes moist. CHEST: Clear to auscultation. No respiratory distress. HEART: Regular rate and rhythm. Normal peripheral pulses. ABDOMEN: Soft, nontender, nondistended. EXTREMITIES: Normal range of motion. No edema. SKIN: Warm, dry, no rash. NEURO: Alert and oriented x3. PSYCH: Normal mood and affect. Course Course Emergency Course: Patient resting comfortably. Hydrated. Mild leukocytosis but normal CT scan. No electrolyte abnormalities or renal failure. Awaiting UA. Patient will be p.o. challenged. 1417: Eating and drinking without issue keenly awake alert. Appropriate for discharge home. Vital Signs Vital signs: Vital Signs Temperature 98.4 F 02/21/25 09:17 Pulse Rate 77 02/21/25 09:17 Respiratory Rate 20 02/21/25 09:17 Blood Pressure 106/50 L 02/21/25 09:17 Pulse Oximetry 96 02/21/25 09:17 Oxygen Delivery Room Air 02/21/25 09:17 Temperature 98.2 F 02/21/25 10:31 Pulse Rate 75 02/21/25 10:31 Respiratory Rate 20 02/21/25 10:31 Blood Pressure 95/47 L 02/21/25 10:31 Pulse Oximetry 94 02/21/25 10:31 Oxygen Delivery Room Air 02/21/25 09:17 Medical Decision Making Vital Signs Vital Signs: Vital Signs Temperature 98.4 F 02/21/25 09:17 Pulse Rate 77 02/21/25 09:17 Respiratory Rate 20 02/21/25 09:17 Blood Pressure 106/50 L 02/21/25 09:17 Pulse Oximetry 96 02/21/25 09:17 Oxygen Delivery Room Air 02/21/25 09:17 Temperature 98.2 F 02/21/25 10:31 Pulse Rate 75 02/21/25 10:31 Respiratory Rate 20 02/21/25 10:31 Blood Pressure 95/47 L 02/21/25 10:31 Pulse Oximetry 94 02/21/25 10:31 Oxygen Delivery Room Air 02/21/25 09:17 Lab Data 02/21/25 10:04 02/21/25 10:04 Labs: Lab Results 02/21/25 02/21/25 Range/Units 10:04 12:37 WBC 16.2 H (4.5-10.0) K/mm3 RBC 3.90 L (4.2-5.4) M/mm3 Hgb 11.1 L (12.0-15.0) g/dL Hct 34.3 L (37.0-47.0) % MCV 87.9 (80-100) fl MCH 28.5 (26-34) pg MCHC 32.4 (32-36) g/dl RDW 13.2 (11.5-14.5) % Plt Count 201 (150-375) k/mm3 MPV 9.2 (7.4-10.4) fl Immature Gran % (Auto) 0.6 H (0-0.5) % Neut % (Auto) 73.4 H (45.5-73.1) % Lymph % (Auto) 16.9 L (18.3-44.2) % [place] % (Auto) 8.2 (2.6-8.5) % Eos % (Auto) 0.5 (0-4.4) % Baso % (Auto) 0.4 (0.2-1.2) % Lymph # (Auto) 2.73 (0.9-3.2) K/mm3 [place] # (Auto) 1.3 H (0.1-0.6) K/mm3 Eos # (Auto) 0.1 (0-0.3) K/mm3 Baso # (Auto) 0.1 (0.0-0.1) K/mm3 Abs Immat Gran (auto) 0.09 H (0.00-0.031) K/mm3 Absolute Neuts (auto) 11.9 H (1.3-6.7) K/mm3 Absolute Nucleated RBC 0.000 (0.0-0.012) K/mm3 Nucleated RBC % 0.0 (0.0-0.2) % Sodium 135 L (137-145) mmol/L Potassium 3.4 (3.4-5.0) mmol/L Chloride 100 (98-107) mmol/L Carbon Dioxide 27 (22-30) mmol/L Anion Gap 8 (4-12) mmol/L BUN 16 (7-17) mg/dL Creatinine 0.92 (0.7-1.0) mg/dL Estim Creat Clear Calc 46 ml/min Estimated GFR > 60 (59 - ) Glucose 124 H (65-110) mg/dL Calcium 8.5 (8.4-10.2) mg/dL Total Bilirubin 1.1 (0.2-1.3) mg/dL AST 19 (14-36) U/L ALT 13 (6-35) U/L Alkaline Phosphatase 106 (38-126) U/L Total Protein 7.0 (6.3-8.2) g/dL Albumin 3.9 (3.5-5.1) g/dL Lipase 25 (23-300) U/L Urine Color Yellow (Yellow) Urine Appearance Clear (Clear) Urine pH 6.0 (5.0-9.0) Ur Specific Roslyn 1.006 (1.001-1.035) Urine Protein Negative (Negative) mg/dL Urine Glucose (UA) Negative (Negative) mg/dL Urine Ketones Negative (Negative) mg/dL Ur Blood (Man) Negative (Negative) Urine Nitrate Negative (Negative) Urine Bilirubin Negative (Negative) Urine Urobilinogen 0.2 (<2.0) mg/dL Leukocyte Esterase Rfl Negative (Negative) MICHELLE/UL Discharge Plan Discharge Clinical Impression: Gastroenteritis Patient Disposition: Home Condition: Stable Instructions: Gastroenteritis (ED) Additional Instructions: Please drink plenty of fluids at home. Return to the emergency department if you develop high fevers, have persistent severe abdominal pain, or have bloody stools or vomit, as these could be signs of a more serious medical emergency. Return to the emergency department if you are unable to keep down liquids because of severe nausea/vomiting. Patient Language: Vietnamese Prescriptions: New dicyclomine 20 mg tablet 20 mg PO QID Qty: 20 0RF ondansetron 4 mg tablet,disintegrating 4 mg PO Q6H PRN (Reason: nausea and vomiting) Qty: 10 0RF No Action pantoprazole 40 mg tablet,delayed release (DR/EC) 40 mg PO DIRECTED sertraline 50 mg tablet 100 mg PO DIRECTED trazodone 50 mg tablet 50 mg PO DIRECTED folic acid 1 mg tablet 1 mg PO DIRECTED Humira(CF) Pen 40 mg/0.4 mL pen injector kit 40 mg SUBCUT WEEKLY atorvastatin 10 mg tablet 10 mg PO QPM methotrexate sodium 2.5 mg tablet 12.5 mg PO WEEKLY Rx Instructions: Every Friday Follow-up/Referrals: Laura,JULIANA Daily [Primary Care Provider] -
[2025-02-21 13:01] LABS: Add Urine Microscopic? NO; Appearance Urine Clear (Clear); Bilirubin Urine Negative (Negative); Blood Urine Negative (Negative); Color Urine Yellow (Yellow); Glucose Urine UA Negative (Negative); Ketones Urine Negative (Negative); Leukocyte Esterase Ur Negative LEU/UL (Negative); Nitrate Urine Negative (Negative); Protein Urine Negative (Negative); Specific Grav Ur 1.006 (1.001-1.035); Urobilinogen Urine 0.2 mg/dL (<2.0)
== END 2025-02-21 14:42 | disposition home or self-care (01) ==
PROVIDERS: Emergency Provider Emergency Medicine; PCP Physician Assistant
DX: K52.9 Noninfective gastroenteritis and colitis, unspecified (principal); F17.210 Nicotine dependence, cigarettes, uncomplicated; Z79.899 Other long term (current) drug therapy; Z79.620 Long term (current) use of immunosuppressive biologic
CPT/HCPCS: 36415; 74177; 80053; 81003; 83690; 85025; 96361; 96374; 99284; J2405; J7030; Q9967

== ENCOUNTER 2025-03-02 12:07 | Emergency (ER) | payer OTHER, SELFPAY ==
--- NOTE | ~2025-03-02 | CT_ITS ---
EXAMINATION: CT brain wo con DATE: 03/02/2025 13:11 INDICATION: Head injury TECHNIQUE: Computed tomography (CT) of the head was performed without intravenous contrast. Sagittal and coronal reconstructions were performed. The mA was adjusted according to patient size. Iterative reconstruction technique was employed. The dose-length product was 605.33 mGy-cm. COMPARISON: head CT dated 03/30/2020 FINDINGS: No fracture. No acute intracranial hemorrhage, acute infarction or abnormal extra axial fluid collect ion. There is mild scattered white matter hypoattenuation consistent with chronic small vessel ischem ic disease. Ventricles are normal and symmetric. No mass/mass effect. Changes of bilateral intraocul ar lens replacement. The orbits and mastoid air cells are normal. The callosal thickening in the righ t maxillary and bilateral ethmoid sinuses. IMPRESSION: 1. No fracture or acute intracranial process. 2. Unchanged mild scattered white matter hypoattenuation consistent with chronic small vessel ischemi c disease. Reviewed, dictated and finalized at location A. IMPRESSION: 1. No fracture or acute intracranial process. 2. Unchanged mild scattered white matter hypoattenuation consistent with chroni c small vessel ischemic disease.
[2025-03-02 12:18] VITALS: BP 121/87; PULSE 75; RESP 17; TEMP 36.4; O2SAT 98
--- OUTSIDE RECORDS SUMMARY | 2025-03-02 12:24 | XMS_ITS | Clinical Summary ---
Author Organization [facility] Address [address] [place] [id number] Care Team Providers Care Measurement Supervisor Name Role Phone Unavailable Primary Care Provider [...]
--- OUTSIDE RECORDS SUMMARY | 2025-03-02 12:24 | XMS_ITS | Encounter Summary ---
Author Organization [facility] Address [address] [place] [address] Care Team Providers Care Business Development Consultant Name Role Phone Abimbola Sanchez PA-C Primary Care Provider [phone] Encounter Details Date Type Department Care Team (Late st Contact Info) Description 02/14/2025 Results Follow-Up [facility] Medical [facility] - Rheumatology [address], [address] [place] [address] Shae Germain MD [facility] [place] [address] Social History Tobacco Use Types [...] on file 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
--- OUTSIDE RECORDS SUMMARY | 2025-03-02 12:24 | XMS_ITS | Data Portability ---
Author Organization [facility] Address [address] [place] [address] Care Team Providers Care Claims Processor Name Role Phone ABIMBOLA BELLE Primary Care Provider [phone] Assessment Encounter Date Assessment Date Assessment LastModified by Organization Details LastModified Time 05/13/2023 05/13/2023 Sections of the HPI, exam and assessment completed by JULIANA Navas student and have been reviewed by me. I agree with the exam findings, assessment and plan except where specifically documented or amended. -Abimbola Belle, [facility], PADaraC [email or web address] Not available 05/13/2023 14:14:20 06/26/2023 06/26/2023 Will discuss pneumonia vaccine at f/u visit. [email or web address] Not available 06/26/2023 15:09:54 Plan of Treatment Reminders Order Date Submit Date Provider Last Modified By Organization Details Last Modified Time Details Appointments None recorded. Lab urinalysis , dipstick 2023 024 [email or web address] In-Office Order, Internal Use Only DO Not Attach Compendium DO Not Attach Compendium, Do Not Delete/merge, [address] 4 12:37:17 culture, urine 2023 024 [facility], [address], [address], [place], [address], 4 01:08:51 CMP, serum or plasma 2023 024 JOSSI[facility], [address] [address], [place], [address], 4 08:26:44 lipid panel, serum [address] [facility], [address], [place], [address], 4 08:26:43 CBC w/ auto diff [address] [facility], [address], [place], [address], 4 08:26:45 TSH + free T4, serum [address] [facility], [address], [place], [address], 4 08:26:43 HbA1c (hemoglobi n A1c), blood [address] [facility], [address], [place], [address], 4 08:26:45 vitamin D, 25-hydroxy , total, serum 2023 024 [facility], [address] [place] [address], [address], [place], [address], 4 08:26:46 Referral None recorded. Procedures None recorded. Surgeries None recorded. Imaging MAMMO, screening, bilateral [address] (Radiology), [address], [place], [address], 4 11:53:57 LDCT, chest, for lung cancer screening [address] (Imaging), [address] [facility] [address], [place], [address], 4 11:53:58 PFT, complete 2022 023 [facility], [address], [place], [address], 3 15:15:29 Medication Orders sertraline 100 mg tablet 2023 024 [facility], [address] [place], [address], 4 15:33:51 pantoprazo le 40 mg tablet,del ayed release 2023 024 [facility], [facility] [place], [address], 4 15:43:08 trazodone 50 mg tablet 2022 023 [facility], [address] [place] [address], [address], 4 15:35:43 sertraline 100 mg tablet 2022 023 [facility], [facility] [place], [address], 3 15:02:14 albuterol sulfate HFA 90 mcg/actuat ion aerosol inhaler 2022 023 [facility], [address] [place] [address], [address], 3 21:26:21 Patient TargetsNo targets recorded. Patient Instructions Encounter Date Encounter Id Patient Instructions Last Modified By Organization Details Last Modified Time 02/24/2024 [id number] A healthy lifestyle: care instructions [email or web address] Not available 02/24/2024 15:37:06 Reason for Referral None Reported. Results Created Date Observation Date Name Description Value Unit Range Abnormal Flag Note LastModifiedBy Organization Detail LastModifiedTime 12/01/19 24 12/02/2023 C react davy prote in [Mass /volu me] in Serum or Plasm a C-reactive protein 3 mg/L low: 0mg/Lh igh: 10mg/L C-Jessy ctive Prote in 3 0 - 10 mg/L [facility] INSUR ANCE BILL Not Available Not Available 02/03/2025 17:12:48 12/01/19 24 12/02/2023 C react davy prote in [Mass /volu me] in Serum or Plasm a Unknown Analyte Lab Testin g perfor med at: [facility] [place] [address] [facility] [id number] 269 Lab Testi ng perfo [facility]med at: [facility] [place] [address] [facility] [place] [address] 1269 Not Available Not Available 02/03/2025 17:12:48 12/01/19 24 12/02/2023 Eryth rocyt e sedim entat ion rate [[place]] in Red Blood Cells by Nadeen kingsley erythrocyte sedimentatio n rate westergren 5 text: 0 - 40 mm/HR Eryth rocyt e Sedim entat ion Rate Nadeen rgren 5 0 - 40 mm/hr [facility] INSUR ANCE BILL Not Available Not Available 02/03/2025 17:12:48 12/01/19 24 12/02/2023 Eryth rocyt e sedim entat ion rate [[place]] in Red Blood Cells by Nadeen kingsley Unknown Analyte Lab Testin g perfor med at: [facility] [place] [address] [facility] [id number] 269 Lab Testi ng perfo [facility]med at: [facility] [place] [address] [facility] [place] [address] 1269 Not Available Not Available 02/03/2025 17:12:48 12/01/19 24 12/02/2023 Compr ehens davy metab olic 1999 panel - Serum or Plasm a glucose [mass/volume ] in serum or plasma 82 mg/dL low: 70mg/d Lhigh: 99mg/d L Gluco se 82 70 - 99 mg/dL [facility] INSUR ANCE BILL Not Available Not Available 02/03/2025 17:12:48 12/01/19 24 12/02/2023 Compr ehens davy metab olic 2000 panel - Serum or Plasm a BUN 11 mg/dL low: 8mg/dL high: 27mg/d L BUN 11 8 - 27 mg/dL [facility] INSUR ANCE BILL Not Available Not Available 02/03/2025 17:12:48 12/01/19 24 12/02/2023 Compr ehens davy metab olic 1999 panel - Serum or Plasm a creatinine [mass/volume ] in serum or plasma 0.87 mg/dL low: 0.57mg /dLhig h: 1mg/dL Creat inine 0.87 0.57 - 1.00 mg/dL [facility] INSUR ANCE BILL Not Available Not Available 02/03/2025 17:12:48 12/01/19 24 12/02/2023 Compr ehens davy metab olic 1999 panel - Serum or Plasm a glomerular filtration rate [volume rate/area] in serum, plasma or blood by creatinine-b ased formula (CKD-epi)/1. 73 sq M 74 mL/mi n/1.7 3 low: 59mL/m in/1.7 3 eGFR by CKD-E PI 74 >59 mL/mi n/1.7 3 [facility] INSUR ANCE BILL Not Available Not Available 02/03/2025 17:12:48 12/01/19 24 12/02/2023 Compr ehens davy metab olic 1999 panel - Serum or Plasm a BUN/creatini ne ratio 13 low: 12high : 28 BUN/C reati nine Ratio 13 12 - 28 [facility] INSUR ANCE BILL Not Available Not Available 02/03/2025 17:12:48 12/01/19 24 12/02/2023 Compr ehens davy metab olic 1999 panel - Serum or Plasm a sodium 141 mmol/ L low: 134mmo l/Lhig h: 144mmo l/L Sodiu m 141 134 - 144 mmol/ L [facility] INSUR ANCE BILL Not Available Not Available 02/03/2025 17:12:48 12/01/19 24 12/02/2023 Compr ehens davy metab olic 2000 panel - Serum or Plasm a potassium 5.1 mmol/ L low: 3.5mmo l/Lhig h: 5.2mmo l/L Potas sium 5.1 3.5 - 5.2 mmol/ L [facility] INSUR ANCE BILL Not Available Not Available 02/03/2025 17:12:48 12/01/19 24 12/02/2023 Compr ehens davy metab olic 1999 panel - Serum or Plasm a chloride 101 mmol/ L low: 96mmol /Lhigh : 106mmo l/L Chlor jorge 101 96 - 106 mmol/ L [facility] INSUR ANCE BILL Not Available Not Available 02/03/2025 17:12:48 12/01/19 24 12/02/2023 Compr ehens davy metab olic 1999 panel - Serum or Plasm a CO2 26 mmol/ L low: 20mmol /Lhigh : 29mmol /L CO2 26 20 - 29 mmol/ L [facility] INSUR ANCE BILL Not Available Not Available 02/03/2025 17:12:48 12/01/19 24 12/02/2023 Compr ehens davy metab olic 1999 panel - Serum or Plasm a calcium 9.7 mg/dL low: 8.7mg/ dLhigh : 10.3mg /dL Calci um 9.7 8.7 - 10.3 mg/dL [facility] INSUR ANCE BILL Not Available Not Available 02/03/2025 17:12:48 12/01/19 24 12/02/2023 Compr ehens davy metab olic 1999 panel - Serum or Plasm a protein total 7.2 g/dL low: 6g/dLh igh: 8.5g/d L Prote in Total 7.2 6.0 - 8.5 g/dL [facility] INSUR ANCE BILL Not Available Not Available 02/03/2025 17:12:48 12/01/19 24 12/02/2023 Compr ehens davy metab olic 1999 panel - Serum or Plasm a albumin 4.5 g/dL low: 3.9g/d Lhigh: 4.9g/d L Album in 4.5 3.9 - 4.9 g/dL [facility] INSUR ANCE BILL Not Available Not Available 02/03/2025 17:12:48 12/01/19 24 12/02/2023 Compr ehens davy metab olic 2000 panel - Serum or Plasm a globulin total 2.7 g/dL low: 1.5g/d Lhigh: 4.5g/d L Globu devika Total 2.7 1.5 - 4.5 g/dL [facility] INSUR ANCE BILL Not Available Not Available 02/03/2025 17:12:48 12/01/19 24 12/02/2023 Compr ehens davy metab olic 1999 panel - Serum or Plasm a albumin/glob ulin ratio 1.7 low: 1.2hig h: 2.2 Album in/Gl obuli n Ratio 1.7 1.2 - 2.2 [facility] INSUR ANCE BILL Not Available Not Available 02/03/2025 17:12:48 12/01/19 24 12/02/2023 Compr ehens davy metab olic 2000 panel - Serum or Plasm a bilirubin total <0.2 low: 0mg/dL high: 1.2mg/ dL Bilir ubin Total <0.2 0.0 - 1.2 mg/dL [facility] INSUR ANCE BILL Not Available Not Available 02/03/2025 17:12:48 12/01/19 24 12/02/2023 Compr ehens davy metab olic 2000 panel - Serum or Plasm a alkaline phosphatase 118 text: 44 - 121 IU/L Alkal ine Phosp hatas e 118 44 - 121 IU/L [facility] INSUR ANCE BILL Not Available Not Available 02/03/2025 17:12:48 12/01/19 24 12/02/2023 Compr ehens davy metab olic 2000 panel - Serum or Plasm a AST 17 text: 0 - 40 IU/L AST 17 0 - 40 IU/L [facility] INSUR ANCE BILL Not Available Not Available 02/03/2025 17:12:48 12/01/19 24 12/02/2023 Compr ehens davy metab olic 2000 panel - Serum or Plasm a ALT 11 text: 0 - 32 IU/L ALT 11 0 - 32 IU/L [facility] INSUR ANCE BILL Not Available Not Available 02/03/2025 17:12:48 12/01/19 24 12/02/2023 Compr ehens davy metab olic 2000 panel - Serum or Plasm a Unknown Analyte Lab Testin g perfor med at: [facility] [place] [address] [facility] [id number] 269 Lab Testi ng perfo rmed at: [facility] [place] [address] [facility] [address] [facility] [address] Not Available Not Available 02/03/2025 17:12:48 12/01/19 24 12/02/2023 CBC W Auto Diffe renti al panel - Blood WBC 8.7 text: 3.4 - 10.8 x10e3/ uL WBC 8.7 3.4 - 10.8 x10E3 /uL [facility] INSUR ANCE BILL Not Available Not Available 02/03/2025 17:12:48 12/01/19 24 12/02/2023 CBC W Auto Diffe renti al panel - Blood RBC 4.43 text: 3.77 - 5.28 x10e6/ uL RBC 4.43 3.77 - 5.28 x10E6 /uL [facility] INSUR ANCE BILL Not Available Not Available 02/03/2025 17:12:48 12/01/19 24 12/02/2023 CBC W Auto Diffe renti al panel - Blood hemoglobin 13.3 g/dL low: 11.1g/ dLhigh : 15.9g/ dL Hemog lobin 13.3 11.1 - 15.9 g/dL [facility] INSUR ANCE BILL Not Available Not Available 02/03/2025 17:12:48 12/01/19 24 12/02/2023 CBC W Auto Diffe renti al panel - Blood hematocrit 38.9 % low: 34%hig h: 46.6% Hemat ocrit 38.9 34.0 - 46.6 % [facility] INSUR ANCE BILL Not Available Not Available 02/03/2025 17:12:48 12/01/19 24 12/02/2023 CBC W Auto Diffe renti al panel - Blood MCV 88 fL low: 79fLhi gh: 97fL MCV 88 79 - 97 fL [facility] INSUR ANCE BILL Not Available Not Available 02/03/2025 17:12:48 12/01/19 24 12/02/2023 CBC W Auto Diffe renti al panel - Blood MCH 30 pg low: 26.6pg high: 33pg MCH 30.0 26.6 - 33.0 pg [facility] INSUR ANCE BILL Not Available Not Available 02/03/2025 17:12:48 12/01/19 24 12/02/2023 CBC W Auto Diffe renti al panel - Blood MCHC 34.2 g/dL low: 31.5g/ dLhigh : 35.7g/ dL MCHC 34.2 31.5 - 35.7 g/dL [facility] INSUR ANCE BILL Not Available Not Available 02/03/2025 17:12:48 12/01/19 24 12/02/2023 CBC W Auto Diffe renti al panel - Blood RDW 12.7 % low: 11.7%h igh: 15.4% RDW 12.7 11.7 - 15.4 % [facility] INSUR ANCE BILL Not Available Not Available 02/03/2025 17:12:48 12/01/19 24 12/02/2023 CBC W Auto Diffe renti al panel - Blood platelet count 394 text: 150 - 450 x10e3/ uL Plate let Count 394 150 - 450 x10E3 /uL [facility] INSUR ANCE BILL Not Available Not Available 02/03/2025 17:12:48 12/01/19 24 12/02/2023 CBC W Auto Diffe renti al panel - Blood granulocytes % 49 % text: not estab. Granu locyt es % 49 Not Estab . % [facility] INSUR ANCE BILL Not Available Not Available 02/03/2025 17:12:48 12/01/19 24 12/02/2023 CBC W Auto Diffe renti al panel - Blood lymphocytes % 37 % text: not estab. Lymph ocyte s % 37 Not Estab . % [facility] INSUR ANCE BILL Not Available Not Available 02/03/2025 17:12:48 12/01/19 24 12/02/2023 CBC W Auto Diffe renti al panel - Blood monocytes % 10 % text: not estab. Monoc ytes % 10 Not Estab . % [facility] INSUR ANCE BILL Not Available Not Available 02/03/2025 17:12:48 12/01/19 24 12/02/2023 CBC W Auto Diffe renti al panel - Blood eosinophils % 2 % text: not estab. Eosin ophil s % 2 Not Estab . % [facility] INSUR ANCE BILL Not Available Not Available 02/03/2025 17:12:48 12/01/19 24 12/02/2023 CBC W Auto Diffe renti al panel - Blood basophils % 1 % text: not estab. Basop hils % 1 Not Estab . % [facility] INSUR ANCE BILL Not Available Not Available 02/03/2025 17:12:48 12/01/19 24 12/02/2023 CBC W Auto Diffe renti al panel - Blood immature cells NOT AVAILA BLE Immat ure Cells NOT AVAIL ABLE [facility] INSUR ANCE BILL Not Available Not Available 02/03/2025 17:12:48 12/01/19 24 12/02/2023 CBC W Auto Diffe renti al panel - Blood granulocytes absolute 4.2 text: 1.4 - 7.0 x10e3/ uL Granu locyt es Absol [place] 4.2 1.4 - 7.0 x10E3 /uL [facility] INSUR ANCE BILL Not Available Not Available 02/03/2025 17:12:48 12/01/19 24 12/02/2023 CBC W Auto Diffe renti al panel - Blood lymphocytes absolute 3.3 text: 0.7 - 3.1 x10e3/ uL high Lymph ocyte s Absol [place] 3.3 (H) 0.7 - 3.1 x10E3 /uL [facility] INSUR ANCE BILL Not Available Not Available 02/03/2025 17:12:48 12/01/19 24 12/02/2023 CBC W Auto Diffe renti al panel - Blood monocytes absolute 0.9 text: 0.1 - 0.9 x10e3/ uL Monoc ytes Absol [place] 0.9 0.1 - 0.9 x10E3 /uL [facility] INSUR ANCE BILL Not Available Not Available 02/03/2025 17:12:48 12/01/19 24 12/02/2023 CBC W Auto Diffe renti al panel - Blood eosinophils absolute 0.2 text: 0.0 - 0.4 x10e3/ uL Eosin ophil s Absol [place] 0.2 0.0 - 0.4 x10E3 /uL [facility] INSUR ANCE BILL Not Available Not Available 02/03/2025 17:12:48 12/01/19 24 12/02/2023 CBC W Auto Diffe renti al panel - Blood basophils absolute 0.1 text: 0.0 - 0.2 x10e3/ uL Basop hils Absol [place] 0.1 0.0 - 0.2 x10E3 /uL [facility] INSUR ANCE BILL Not Available Not Available 02/03/2025 17:12:48 12/01/19 24 12/02/2023 CBC W Auto Diffe renti al panel - Blood immature granulocytes 1 % text: not estab. Immat ure Granu locyt es 1 Not Estab . % [facility] INSUR ANCE BILL Not Available Not Available 02/03/2025 17:12:48 12/01/19 24 12/02/2023 CBC W Auto Diffe renti al panel - Blood immature granulocytes absolute 0.1 text: 0.0 - 0.1 x10e3/ uL Immat ure Granu locyt es Absol [place] 0.1 0.0 - 0.1 x10E3 /uL [facility] INSUR ANCE BILL Not Available Not Available 02/03/2025 17:12:48 12/01/19 24 12/02/2023 CBC W Auto Diffe renti al panel - Blood NRBC NOT AVAILA BLE nRBC NOT AVAIL ABLE [facility] INSUR ANCE BILL Not Available Not Available 02/03/2025 17:12:48 12/01/19 24 12/02/2023 CBC W Auto Diffe renti al panel - Blood comment hematology NOT AVAILA BLE Comme nt Hemat ology NOT AVAIL ABLE [facility] INSUR ANCE BILL Not Available Not Available 02/03/2025 17:12:48 12/01/19 24 12/02/2023 CBC W Auto Diffe renti al panel - Blood Unknown Analyte Lab Testin g perfor med at: [facility] [place] [address] [facility] [id number] Lab Testi ng perfo rmed at: [facility] n [address] [facility] [address] Not Available Not Available 02/03/2025 17:12:48 12/01/19 24 12/02/2023 CBC W Auto Diffe renti al panel - Blood interpretati on and review of laboratory results Abnorm al Not Available Not Available 17:12:48 02/24/20 24 02/25/2024 TSH+F REE T4 TSH 0.995 uIU/m L 0.450- 4.500 Not Available [facility] ([facility]) [address] [facility], [place], [address], 02/25/2024 08:26:42 02/24/20 24 02/25/2024 TSH+F REE T4 T4,free(dire ct) 1.12 NG/dL 0.82-1 .77 Not Available [facility] ([facility]) [address] [place], [address], 02/25/2024 08:26:42 02/24/20 24 02/25/2024 LIPID PANEL WITH LDL/H DL RATIO cholesterol, total 245 mg/dL 100-19 9 above high normal Not Available [facility] ([facility]) [address] [place], [address], 02/25/2024 08:26:43 02/24/20 24 02/25/2024 LIPID PANEL WITH LDL/H DL RATIO triglyceride s 243 mg/dL 0-149 above high normal Not Available [facility] ([facility]) [address] [place], [address], 02/25/2024 08:26:43 02/24/20 24 02/25/2024 LIPID PANEL WITH LDL/H DL RATIO HDL cholesterol 51 mg/dL >39 Not Available [facility] ([facility]) [address] [place], [address], 02/25/2024 08:26:43 02/24/20 24 02/25/2024 LIPID PANEL WITH LDL/H DL RATIO VLDL cholesterol nicky 44 mg/dL 5-40 above high normal Not Available [facility] ([facility]) [address] [place], [address], 02/25/2024 08:26:43 02/24/20 24 02/25/2024 LIPID PANEL WITH LDL/H DL RATIO LDL chol calc ([facility]) 150 mg/dL 0-99 above high normal Not Available [facility] ([facility]) [address] [place], [address], 02/25/2024 08:26:43 02/24/20 24 02/25/2024 LIPID PANEL WITH LDL/H DL RATIO LDL/HDL ratio 2.9 ratio 0.0-3. 2 LDL/H DL Ratio Men Women 1/2 Avg.R isk 1.0 1.5 Avg.R isk 3.6 3.2 2X Avg.R isk 6.2 5.0 3X Avg.R isk 8.0 6.1 Not Available [facility] ([facility]) [address] [place], [address], 02/25/2024 08:26:43 02/24/20 24 02/25/2024 COMP. METAB OLIC PANEL (14) glucose 86 mg/dL 70-99 Not Available [facility] ([facility]) [address] [place], [address], 02/25/2024 08:26:44 02/24/20 24 02/25/2024 COMP. METAB OLIC PANEL (14) BUN 14 mg/dL 8-27 Not Available [facility] ([facility]) [address] [place], [address], 02/25/2024 08:26:44 02/24/20 24 02/25/2024 COMP. METAB OLIC PANEL (14) creatinine 1.01 mg/dL 0.57-1 .00 above high normal Not Available [facility] ([facility]) [address] [place], [address], 02/25/2024 08:26:44 02/24/20 24 02/25/2024 COMP. METAB OLIC PANEL (14) eGFR 62 mL/mi n/1.7 3 >59 Not Available [facility] ([facility]) [address] [place], [address], 02/25/2024 08:26:44 02/24/20 24 02/25/2024 COMP. METAB OLIC PANEL (14) BUN/creatini ne ratio 14 12-28 Not Available [facility] ([facility]) [address] [place], [address], 02/25/2024 08:26:44 02/24/20 24 02/25/2024 COMP. METAB OLIC PANEL (14) sodium 138 mmol/ L 134-14 4 Not Available [facility] ([facility]) [address] [place], [address], 02/25/2024 08:26:44 02/24/20 24 02/25/2024 COMP. METAB OLIC PANEL (14) potassium 5.6 mmol/ L 3.5-5. 2 above high normal Not Available [facility] ([facility]) [address] [place], [address], 02/25/2024 08:26:44 02/24/20 24 02/25/2024 COMP. METAB OLIC PANEL (14) chloride 101 mmol/ L 96-106 Not Available [facility] ([facility]) [address] [facility] [place], [address], 02/25/2024 08:26:44 02/24/20 24 02/25/2024 COMP. METAB OLIC PANEL (14) carbon dioxide, total 26 mmol/ L 20-29 Not Available [facility] ([facility]) [address] [facility] [place], [address], 02/25/2024 08:26:44 02/24/20 24 02/25/2024 COMP. METAB OLIC PANEL (14) calcium 9.6 mg/dL 8.7-10 .3 Not Available [facility] ([facility]) [address] [facility] [place], [address], 02/25/2024 08:26:44 02/24/20 24 02/25/2024 COMP. METAB OLIC PANEL (14) protein, total 7.0 g/dL 6.0-8. 5 Not Available [facility] ([facility]) [address] [facility] [place], [address], 02/25/2024 08:26:44 02/24/20 24 02/25/2024 COMP. METAB OLIC PANEL (14) albumin 4.3 g/dL 3.9-4. 9 Not Available [facility] ([facility]) [address] [facility], [place], [address], 02/25/2024 08:26:44 02/24/20 24 02/25/2024 COMP. METAB OLIC PANEL (14) globulin, total 2.7 g/dL 1.5-4. 5 Not Available [facility] ([facility]) [address] [facility], [place], [address], 02/25/2024 08:26:44 02/24/20 24 02/25/2024 COMP. METAB OLIC PANEL (14) A/G ratio 1.6 1.2-2. 2 Not Available [facility] ([facility]) [address] [facility], [place], [address], 02/25/2024 08:26:44 02/24/20 24 02/25/2024 COMP. METAB OLIC PANEL (14) bilirubin, total 0.3 mg/dL 0.0-1. 2 Not Available [facility] ([facility]) [address] [facility], [place], [address], 02/25/2024 08:26:44 02/24/20 24 02/25/2024 COMP. METAB OLIC PANEL (14) alkaline phosphatase 116 IU/L 44-121 Not Available [facility] ([facility]) [address] [facility], [place], [address], 02/25/2024 08:26:44 02/24/20 24 02/25/2024 COMP. METAB OLIC PANEL (14) AST (SGOT) 19 IU/L 0-40 Not Available [facility] ([facility]) [address] [facility], [place], [address], 02/25/2024 08:26:44 02/24/20 24 02/25/2024 COMP. METAB OLIC PANEL (14) ALT (SGPT) 14 IU/L 0-32 Not Available [facility] ([facility]) [address] [facility], [place], [address], 02/25/2024 08:26:44 02/24/20 24 02/25/2024 HEMOG LOBIN A1C hemoglobin A1C 5.5 % 4.8-5. 6 Predi abete s: 5.7 - 6.4 Diabe guillermo: >6.4 Glyce fior contr ol for adult s with diabe guillermo: <7.0 Not Available [facility] ([facility]) [address] [facility], [place], [address], 02/25/2024 08:26:45 02/24/20 24 02/25/2024 CBC WITH DIFFE RENTI AL/PL ATELE T WBC 7.9 x10e3 /uL 3.4-10 .8 Not Available [facility] ([facility]) [address] [facility], [place], [address], 02/25/2024 08:26:45 02/24/20 24 02/25/2024 CBC WITH DIFFE RENTI AL/PL ATELE T RBC 4.19 x10e6 /uL 3.77-5 .28 Not Available [facility] ([facility]) [address] [place], [address], 02/25/2024 08:26:45 02/24/20 24 02/25/2024 CBC WITH DIFFE RENTI AL/PL ATELE T hemoglobin 12.4 g/dL 11.1-1 5.9 Not Available [facility] ([facility]) [address] [place], [address], 02/25/2024 08:26:45 02/24/20 24 02/25/2024 CBC WITH DIFFE RENTI AL/PL ATELE T hematocrit 37.1 % 34.0-4 6.6 Not Available [facility] ([facility]) [address] [place], [address], 02/25/2024 08:26:45 02/24/20 24 02/25/2024 CBC WITH DIFFE RENTI AL/PL ATELE T MCV 89 fL 79-97 Not Available [facility] ([facility]) [address] [facility], [place], [address], 02/25/2024 08:26:45 02/24/20 24 02/25/2024 CBC WITH DIFFE RENTI AL/PL ATELE T MCH 29.6 pg 26.6-3 3.0 Not Available [facility] ([facility]) [address] [facility], [place], [address], 02/25/2024 08:26:45 02/24/20 24 02/25/2024 CBC WITH DIFFE RENTI AL/PL ATELE T MCHC 33.4 g/dL 31.5-3 5.7 Not Available [facility] ([facility]) [address] [facility], [place], [address], 02/25/2024 08:26:45 02/24/20 24 02/25/2024 CBC WITH DIFFE RENTI AL/PL ATELE T RDW 14.4 % 11.7-1 5.4 Not Available [facility] ([facility]) [address] [facility], [place], [address], 02/25/2024 08:26:45 02/24/20 24 02/25/2024 CBC WITH DIFFE RENTI AL/PL ATELE T platelets 239 x10e3 /uL 150-45 0 Not Available [facility] ([facility]) [address] [facility], [place], [address], 02/25/2024 08:26:45 02/24/20 24 02/25/2024 CBC WITH DIFFE RENTI AL/PL ATELE T neutrophils 47 % notest ab. Not Available [facility] ([facility]) [address] [facility], [place], [address], 02/25/2024 08:26:45 02/24/20 24 02/25/2024 CBC WITH DIFFE RENTI AL/PL ATELE T lymphs 39 % notest ab. Not Available [facility] ([facility]) [address] [facility], [place], [address], 02/25/2024 08:26:45 02/24/20 24 02/25/2024 CBC WITH DIFFE RENTI AL/PL ATELE T monocytes 9 % notest ab. Not Available [facility] ([facility]) [address] [facility], [place], [address], 02/25/2024 08:26:45 02/24/20 24 02/25/2024 CBC WITH DIFFE RENTI AL/PL ATELE T eos 4 % notest ab. Not Available [facility] ([facility]) [address] [facility], [place], [address], 02/25/2024 08:26:45 02/24/20 24 02/25/2024 CBC WITH DIFFE RENTI AL/PL ATELE T basos 1 % notest ab. Not Available [facility] ([facility]) [address] [facility], [place], [address], 02/25/2024 08:26:45 02/24/20 24 02/25/2024 CBC WITH DIFFE RENTI AL/PL ATELE T neutrophils (absolute) 3.7 x10e3 /uL 1.4-7. 0 Not Available [facility] ([facility]) [address] [facility], [place], [address], 02/25/2024 08:26:45 02/24/20 24 02/25/2024 CBC WITH DIFFE RENTI AL/PL ATELE T lymphs (absolute) 3.0 x10e3 /uL 0.7-3. 1 Not Available [facility] ([facility]) [address] [facility], [place], [address], 02/25/2024 08:26:45 04/30/02/25/2024 CBC WITH DIFFE RENTI AL/PL ATELE T monocytes(ab solute) 0.7 x10e3 /uL 0.1-0. 9 Not Available [facility] ([facility]) [address] [facility], [place], [address], 02/25/2024 08:26:45 02/24/20 24 02/25/2024 CBC WITH DIFFE RENTI AL/PL ATELE T eos (absolute) 0.3 x10e3 /uL 0.0-0. 4 Not Available [facility] ([facility]) [address] [facility], [place], [address], 02/25/2024 08:26:45 02/24/20 24 02/25/2024 CBC WITH DIFFE RENTI AL/PL ATELE T baso (absolute) 0.1 x10e3 /uL 0.0-0. 2 Not Available [facility] ([facility]) [address] [facility], [place], [address], 02/25/2024 08:26:45 02/24/20 24 02/25/2024 CBC WITH DIFFE RENTI AL/PL ATELE T immature granulocytes 0 % notest ab. Not Available [facility] ([facility]) [address] [facility], [place], [address], 02/25/2024 08:26:45 02/24/20 24 02/25/2024 CBC WITH DIFFE RENTI AL/PL ATELE T immature grans (abs) 0.0 x10e3 /uL 0.0-0. 1 Not Available [facility] ([facility]) [address] [place], [address], 02/25/2024 08:26:45 02/24/20 24 02/25/2024 VITAM IN D, 25-HY DROXY vitamin D, 25-hydroxy 39.7 NG/mL 30.0-1 00.0 Vitam in D defic iency has been defin ed by the Insti tute of Medic ine and an Endoc rine Socie ty pract ice guide line as a level of serum 25-OH vitam in D less than 20 ng/mL (1,2) . The Endoc rine Socie ty went on to furth er defin e vitam in D insuf ficie ncy as a level betwe en 21 and 29 ng/mL (2). 1. IOM (Inst itute of Medic ine). 2010. Dieta ry refer ence intak es for calci um and D. Vasyl gonzalez [place]: The [facility] . 2. Jada bess MF, [address] [place], Jayden off-F errar i MODI, et al. Evalu ation , treat ment, and preve ntion of vitam in D defic iency : an Endoc rine Socie ty clini nicky pract ice guide line. JCEM. 2010; 96(7) :1911 -30. Not Available [facility] ([facility]) [address] [facility], [place], [address], 02/25/2024 08:26:46 07/05/2007/08/2024 Urina lysis panel - Urine by Autom ated specific gravity UA 1.02 low: 1.005h igh: 1.03 Speci fic Gravi ty UA 1.020 1.005 - 1.030 [facility] INSUR ANCE BILL Not Available Not Available 02/17/2025 13:52:29 07/05/2007/08/2024 Urina lysis panel - Urine by Autom ated pH UA 6 low: 5high: 7.5 pH UA 6.0 5.0 - 7.5 [facility] INSUR ANCE BILL Not Available Not Available 02/17/2025 13:52:29 07/05/20 24 07/08/2024 Urina lysis panel - Urine by Autom ated color UA Yellow text: yellow Color UA Yello w Yello w [facility] INSUR ANCE BILL Not Available Not Available 02/17/2025 13:52:29 07/05/20 24 07/08/2024 Urina lysis panel - Urine by Autom ated appearance Clear text: clear Appea krish Clear Clear [facility] INSUR ANCE BILL Not Available Not Available 02/17/2025 13:52:29 07/05/20 24 07/08/2024 Urina lysis panel - Urine by Autom ated leukocyte UA 2+ text: negati ve abnormal Leuko cyte UA 2+ (A) Negat davy [facility] INSUR ANCE BILL Not Available Not Available 02/17/2025 13:52:29 07/05/20 24 07/08/2024 Urina lysis panel - Urine by Autom ated protein UA Negati ve text: negati ve/tra ce Prote in UA Negat davy Negat davy/T race [facility] INSUR ANCE BILL Not Available Not Available 02/17/2025 13:52:29 07/05/20 24 07/08/2024 Urina lysis panel - Urine by Autom ated glucose UA Negati ve text: negati ve Gluco se UA Negat davy Negat davy [facility] INSUR ANCE BILL Not Available Not Available 02/17/2025 13:52:29 07/05/20 24 07/08/2024 Urina lysis panel - Urine by Autom ated ketone UA Negati ve text: negati ve Keton e UA Negat davy Negat davy [facility] INSUR ANCE BILL Not Available Not Available 02/17/2025 13:52:29 07/05/20 24 07/08/2024 Urina lysis panel - Urine by Autom ated occult blood urine Negati ve text: negati ve Occul t Blood Urine Negat davy Negat davy [facility] INSUR ANCE BILL Not Available Not Available 02/17/2025 13:52:29 07/05/2007/08/2024 Urina lysis panel - Urine by Autom ated bilirubin UA Negati ve text: negati ve Bilir ubin UA Negat davy Negat davy [facility] INSUR ANCE BILL Not Available Not Available 02/17/2025 13:52:29 07/05/20 24 07/08/2024 Urina lysis panel - Urine by Autom ated urobilinogen 0.2 mg/dL low: 0.2mg/ dLhigh : 1mg/dL Urobi linog en 0.2 0.2 - 1.0 mg/dL [facility] INSUR ANCE BILL Not Available Not Available 02/17/2025 13:52:29 07/05/20 24 07/08/2024 Urina lysis panel - Urine by Autom ated nitrite UA Negati ve text: negati ve Nitri te UA Negat davy Negat davy [facility] INSUR ANCE BILL Not Available Not Available 02/17/2025 13:52:29 07/05/20 24 07/08/2024 Urina lysis panel - Urine by Autom ated microscopic examination urine See below: Micro scopi c Exami natio n Urine See below : [facility] INSUR ANCE BILL Not Available Not Available 02/17/2025 13:52:29 07/05/20 24 07/08/2024 Urina lysis panel - Urine by Autom ated urinalysis reflex Commen t Urina lysis Refle x Comme nt [facility] INSUR ANCE BILL Not Available Not Available 02/17/2025 13:52:29 07/05/20 24 07/08/2024 Urina lysis panel - Urine by Autom ated WBC UA 6-10 text: 0 - 5 /hpf abnormal WBC UA 6-10 (A) 0 - 5 /hpf [facility] INSUR ANCE BILL Not Available Not Available 02/17/2025 13:52:29 07/05/20 24 07/08/2024 Urina lysis panel - Urine by Autom ated RBC UA None seen text: 0 - 2 /hpf RBC UA None seen 0 - 2 /hpf [facility] INSUR ANCE BILL Not Available Not Available 02/17/2025 13:52:29 07/05/2007/08/2024 Urina lysis panel - Urine by Autom ated epithelial cells (non renal) 0-10 text: 0 - 10 /hpf Epith elial Cells (non renal ) 0-10 0 - 10 /hpf [facility] INSUR ANCE BILL Not Available Not Available 02/17/2025 13:52:29 07/05/20 24 07/08/2024 Urina lysis panel - Urine by Autom ated casts UA None seen text: none seen /lpf Casts ua None seen None seen /lpf [facility] INSUR ANCE BILL Not Available Not Available 02/17/2025 13:52:29 07/05/20 24 07/08/2024 Urina lysis panel - Urine by Autom ated crystals UA Presen t text: n/a abnormal Cryst als UA Prese nt (A) N/A [facility] INSUR ANCE BILL Not Available Not Available 02/17/2025 13:52:29 07/05/20 24 07/08/2024 Urina lysis panel - Urine by Autom ated crystals UA Calciu m Oxalat e text: n/a Cryst als UA Calci um Oxala te N/A [facility] INSUR ANCE BILL Not Available Not Available 02/17/2025 13:52:29 07/05/20 24 07/08/2024 Urina lysis panel - Urine by Autom ated mucus UA Presen t text: not estab. Mucus UA Prese nt Not Estab . [facility] INSUR ANCE BILL Not Available Not Available 02/17/2025 13:52:29 07/05/20 24 07/08/2024 Urina lysis panel - Urine by Autom ated bacteria UA None seen text: none seen/f ew Bacte malathi UA None seen None seen/ Few [facility] INSUR ANCE BILL Not Available Not Available 02/17/2025 13:52:29 07/05/20 24 07/08/2024 Urina lysis panel - Urine by Autom ated urine culture comprehensiv e Final report abnormal Urine Cultu re Compr ehens davy Final repor t (A) [facility] INSUR ANCE BILL Not Available Not Available 02/17/2025 13:52:29 07/05/20 24 07/08/2024 Urina lysis panel - Urine by Autom ated result 1 Escher ichia coli abnormal Resul t 1 Esche beto a coli (A) [facility] INSUR ANCE BILL Not Available Not Available 02/17/2025 13:52:29 07/05/20 24 07/08/2024 Urina lysis panel - Urine by Autom ated antimicrobia l susceptibili ty Commen t Antim icrob ial Susce ptibi lity Comme nt [facility] INSUR ANCE BILL Not Available Not Available 02/17/2025 13:52:29 07/05/20 24 07/08/2024 Urina lysis panel - Urine by Autom ated Unknown Analyte Perfor med at: 01 - [facility]efanie [address] [id number] Lab Direct or: Karen Bello uti PhD, Not Available Not Available 13:52:29 07/05/2007/08/2024 Urina lysis panel - Urine by Autom ated interpretati on and review of laboratory results Abnorm al Not Available Not Available 13:52:29 09/02/20 24 09/04/2024 URINE CULTU RE, ROUTI NE urine culture, routine FINAL REPORT Not Available [facility] ([facility]) [address] [facility], [place], [address], 09/04/2024 01:08:51 09/02/2009/04/2024 URINE CULTU RE, ROUTI NE result 1 ASHLEY Bowles Mixed uroge nital yakelin 25,00 0-50, 000 colon y formi ng units per mL Not Available [facility] ([facility]) [address] [facility], [place], [address], 09/04/2024 01:08:51 09/02/2009/02/2024 urina lysis , dipst ick Leukocytes Negati ve Not Available In-Office Order Internal Use Only DO Not Attach Compendium DO Not Attach Compendium, Do Not Delete/merge, [id number] 09/02/2024 12:09:04 09/02/2009/02/2024 urina lysis , dipst ick Nitrite negati ve Not Available In-Office Order Internal Use Only DO Not Attach Compendium DO Not Attach Compendium, Do Not Delete/merge, [id number] 09/02/2024 12:09:04 09/02/2009/02/2024 urina lysis , dipst ick Urobilinogen .2 Not Available In-Of fice Order Internal Use Only DO Not Attach Compendium DO Not Attach Compendium, Do Not Delete/merge, [id number] 09/02/2024 12:09:04 09/02/2009/02/2024 urina lysis , dipst ick Protein Trace Not Available In-Office Order Internal Use Only DO Not Attach Compendium DO Not Attach Compendium, Do Not Delete/merge, [id number] 09/02/2024 12:09:04 09/02/20 24 09/02/2024 urina lysis , dipst ick pH 7.0 Not Available In-Office Order Internal Use Only DO Not Attach Compendium DO Not Attach Compendium, Do Not Delete/merge, [id number] 09/02/2024 12:09:04 09/02/20 24 09/02/2024 urina lysis , dipst ick Blood Negati ve Not Available In-Office Order Internal Use Only DO Not Attach Compendium DO Not Attach Compendium, Do Not Delete/merge, [id number] 09/02/2024 12:09:04 09/02/20 24 09/02/2024 urina lysis , dipst ick Specific [place] 1.010 Not Available In-Off ice Order Internal Use Only DO Not Attach Compendium DO Not Attach Compendium, Do Not Delete/merge, [id number] 09/02/2024 12:09:04 09/02/20 24 09/02/2024 urina lysis , dipst ick Ketone Negati ve Not Available In-Office Order Internal Use Only DO Not Attach Compendium DO Not Attach Compendium, Do Not Delete/merge, [id number] 09/02/2024 12:09:04 09/02/20 24 09/02/2024 urina lysis , dipst ick Bilirubin Negati ve Not Available In-Office Order Internal Use Only DO Not Attach Compendium DO Not Attach Compendium, Do Not Delete/merge, [id number] 09/02/2024 12:09:04 09/02/20 24 09/02/2024 urina lysis , dipst ick Glucose Negati ve Not Available In-Office Order Internal Use Only DO Not Attach Compendium DO Not Attach Compendium, Do Not Delete/merge, [id number] 09/02/2024 12:09:04 09/02/20 24 09/02/2024 urina lysis , dipst ick Appearance Clear Not Available In-Offi ce Order Internal Use Only DO Not Attach Compendium DO Not Attach Compendium, Do Not Delete/merge, [id number] 09/02/2024 12:09:04 09/02/20 24 09/02/2024 urina lysis , dipst ick Color Pale Yellow Not Available In-Office Order Internal Use Only DO Not Attach Compendium DO Not Attach Compendium, Do Not Delete/merge, [id number] 09/02/2024 12:09:04 10/14/20 24 10/15/2024 Compr ehens davy metab olic 1999 panel - Serum or Plasm a glucose 116 mg/dL low: 65mg/d Lhigh: 99mg/d L high Gluco se 116 (H) 65 - 99 mg/dL [facility] Not Available Not Available 02/03/2025 17:11:29 10/14/20 24 10/15/2024 Compr ehens davy metab olic 1999 panel - Serum or Plasm a BUN 12 mg/dL low: 7mg/dL high: 25mg/d L BUN 12 7 - 25 mg/dL [facility] Not Available Not Available 02/03/2025 17:11:29 10/14/20 24 10/15/2024 Compr ehens davy metab olic 2000 panel - Serum or Plasm a creatinine 0.88 mg/dL low: 0.5mg/ dLhigh : 1.05mg /dL Creat inine 0.88 0.50 - 1.05 mg/dL [facility] Not Available Not Available 02/03/2025 17:11:29 10/14/20 24 10/15/2024 Compr ehens davy metab olic 1999 panel - Serum or Plasm a glomerular filtration rate [volume rate/area] in serum, plasma or blood by cystatin C-based formula/1.73 sq M 72 text: > or = 60 mL/min /1.73m 2 eGFR by Cysta tin C 72 > OR = 60 mL/mi n/1.7 3m2 [facility] Not Available Not Available 02/03/2025 17:11:29 10/14/20 24 10/15/2024 Compr ehens davy metab olic 2000 panel - Serum or Plasm a BUN/creatini ne ratio SEE NOTE: text: 6 - 22 (calc) BUN/C reati nine Ratio SEE NOTE: 6 - 22 (calc ) [facility] Not Available Not Available 02/03/2025 17:11:29 10/14/20 24 10/15/2024 Compr ehens davy metab olic 2000 panel - Serum or Plasm a sodium 142 mmol/ L low: 135mmo l/Lhig h: 146mmo l/L Sodiu m 142 135 - 146 mmol/ L [facility] Not Available Not Available 02/03/2025 17:11:29 10/14/20 24 10/15/2024 Compr ehens davy metab olic 1999 panel - Serum or Plasm a potassium 4.6 mmol/ L low: 3.5mmo l/Lhig h: 5.3mmo l/L Potas sium 4.6 3.5 - 5.3 mmol/ L [facility] Not Available Not Available 02/03/2025 17:11:29 10/14/20 24 10/15/2024 Compr ehens davy metab olic 1999 panel - Serum or Plasm a chloride 105 mmol/ L low: 98mmol /Lhigh : 110mmo l/L Chlor jorge 105 98 - 110 mmol/ L [facility] Not Available Not Available 02/03/2025 17:11:29 10/14/20 24 10/15/2024 Compr ehens davy metab olic 1999 panel - Serum or Plasm a CO2 30 mmol/ L low: 20mmol /Lhigh : 32mmol /L CO2 30 20 - 32 mmol/ L [facility] Not Available Not Available 02/03/2025 17:11:29 10/14/20 24 10/15/2024 Compr ehens davy metab olic 1999 panel - Serum or Plasm a calcium 9.4 mg/dL low: 8.6mg/ dLhigh : 10.4mg /dL Calci um 9.4 8.6 - 10.4 mg/dL [facility] Not Available Not Available 02/03/2025 17:11:29 10/14/20 24 10/15/2024 Compr ehens davy metab olic 1999 panel - Serum or Plasm a protein total 7.3 g/dL low: 6.1g/d Lhigh: 8.1g/d L Prote in Total 7.3 6.1 - 8.1 g/dL [facility] Not Available Not Available 02/03/2025 17:11:29 10/14/20 24 10/15/2024 Compr ehens davy metab olic 1999 panel - Serum or Plasm a albumin 4 g/dL low: 3.6g/d Lhigh: 5.1g/d L Album in 4.0 3.6 - 5.1 g/dL [facility] Not Available Not Available 02/03/2025 17:11:29 10/14/20 24 10/15/2024 Compr ens davy metab [facility] 1999 panel - Serum or Plasm a globulin total 3.3 text: 1.9 - 3.7 g/dL (calc) Globu devika Total 3.3 1.9 - 3.7 g/dL (calc ) [facility] Not Available Not Available 02/03/2025 17:11:29 10/14/20 24 10/15/2024 Compr ens davy metab [facility] 1999 panel - Serum or Plasm a albumin/glob ulin ratio 1.2 text: 1.0 - 2.5 (calc) Album in/Gl obuli n Ratio 1.2 1.0 - 2.5 (calc ) [facility] Not Available Not Available 02/03/2025 17:11:29 10/14/20 24 10/15/2024 Compr ens davy metab [facility] 1999 panel - Serum or Plasm a bilirubin total 0.3 mg/dL low: 0.2mg/ dLhigh : 1.2mg/ dL Bilir ubin Total 0.3 0.2 - 1.2 mg/dL [facility] Not Available Not Available 02/03/2025 17:11:29 10/14/20 24 10/15/2024 [facility] 1999 panel - Serum or Plasm a alkaline phosphatase 121 U/L low: 37U/Lh igh: 153U/L Alkal ine Phosp hatas e 121 37 - 153 U/L [facility] Not Available Not Available 02/03/2025 17:11:29 10/14/20 24 10/15/2024 Compr ens davy metab olic 1999 panel - Serum or Plasm a AST 15 U/L low: 10U/Lh igh: 35U/L AST 15 10 - 35 U/L [facility] Not Available Not Available 02/03/2025 17:11:29 10/14/20 24 10/15/2024 Compr ens davy metab olic 1999 panel - Serum or Plasm a ALT 10 U/L low: 6U/Lhi gh: 29U/L ALT 10 6 - 29 U/L [facility] Not Available Not Available 02/03/2025 17:11:29 10/14/20 24 10/15/2024 [facility] - Serum or Plasm a interpretati on and review of laboratory results Abnorm al Not Available Not Available 17:11:29 02/10/20 25 02/10/2025 C react davy prote in [Mass /volu me] in Serum or Plasm a C-reactive protein <5.0 high: 8mg/L C-Jessy ctive Prote in <5.0 <8.0 mg/L [facility] Not Available Not Available 02/17/2025 13:51:21 02/10/20 25 02/10/2025 Eryth rocyt e sedim entat ion rate [[place]] in Red Blood Cells by Weste rgren metho d erythrocyte sedimentatio n rate westergren 16 mm/h text: < or = 30 Eryth rocyt e Sedim entat ion Rate Weste rgren 16 < OR = 30 mm/h [facility] Not Available Not Available 02/17/2025 13:51:21 02/10/20 25 02/10/2025 CBC W Auto Diffe renti al panel - Blood white blood cell count 10.8 text: 3.8 - 10.8 thousa nd/uL White Blood Cell Count 10.8 3.8 - 10.8 Thous and/u L [facility] Not Available Not Available 02/17/2025 13:51:21 02/10/20 25 02/10/2025 CBC W Auto Diffe renti al panel - Blood RBC 4.33 text: 3.80 - 5.10 millio n/uL RBC 4.33 3.80 - 5.10 Rowena on/uL [facility] Not Available Not Available 02/17/2025 13:51:21 02/10/20 25 02/10/2025 CBC W Auto Diffe renti al panel - Blood hemoglobin 12.8 g/dL low: 11.7g/ dLhigh : 15.5g/ dL Hemog lobin 12.8 11.7 - 15.5 g/dL [facility] Not Available Not Available 02/17/2025 13:51:21 02/10/20 25 02/10/2025 CBC W Auto Diffe renti al panel - Blood hematocrit 38.6 % low: 35%hig h: 45% Hemat ocrit 38.6 35.0 - 45.0 % [facility] Not Available Not Available 02/17/2025 13:51:21 02/10/20 25 02/10/2025 CBC W Auto Diffe renti al panel - Blood MCV 89.1 fL low: 80fLhi gh: 100fL MCV 89.1 80.0 - 100.0 fL [facility] Not Available Not Available 02/17/2025 13:51:21 02/10/20 25 02/10/2025 CBC W Auto Diffe renti al panel - Blood MCH 29.6 pg low: 27pghi gh: 33pg MCH 29.6 27.0 - 33.0 pg [facility] Not Available Not Available 02/17/2025 13:51:21 02/10/20 25 02/10/2025 CBC W Auto Diffe renti al panel - Blood MCHC 33.2 g/dL low: 32g/dL high: 36g/dL MCHC 33.2 32.0 - 36.0 g/dL [facility] Not Available Not Available 02/17/2025 13:51:21 02/10/20 25 02/10/2025 CBC W Auto Diffe renti al panel - Blood RDW 13.2 % low: 11%hig h: 15% RDW 13.2 11.0 - 15.0 % [facility] Not Available Not Available 02/17/2025 13:51:21 02/10/20 25 02/10/2025 CBC W Auto Diffe renti al panel - Blood platelet count 258 text: 140 - 400 thousa nd/uL Plate let Count 258 140 - 400 Thous and/u L [facility] Not Available Not Available 02/17/2025 13:51:21 02/10/20 25 02/10/2025 CBC W Auto Diffe renti al panel - Blood MPV 10 fL low: 7.5fLh igh: 12.5fL MPV 10.0 7.5 - 12.5 fL [facility] Not Available Not Available 02/17/2025 13:51:21 02/10/20 25 02/10/2025 CBC W Auto Diffe renti al panel - Blood neutrophil absolute 5843 text: 1500 - 7800 cells/ uL Neutr ophil Absol [place] 5843 1500 - 7800 cells /uL [facility] Not Available Not Available 02/17/2025 13:51:21 02/10/20 25 02/10/2025 CBC W Auto Diffe renti al panel - Blood lymphocytes absolute 4147 text: 850 - 3900 cells/ uL high Lymph ocyte s Absol [place] 4147 (H) 850 - 3900 cells /uL [facility] Not Available Not Available 02/17/2025 13:51:21 02/10/20 25 02/10/2025 CBC W Auto Diffe renti al panel - Blood absolute monocytes 583 text: 200 - 950 cells/ uL Absol [place] Monoc ytes 583 200 - 950 cells /uL [facility] Not Available Not Available 02/17/2025 13:51:21 02/10/20 25 02/10/2025 CBC W Auto Diffe renti al panel - Blood eosinophils absolute 162 text: 15 - 500 cells/ uL Eosin ophil s Absol [place] 162 15 - 500 cells /uL [facility] Not Available Not Available 02/17/2025 13:51:21 02/10/20 25 02/10/2025 CBC W Auto Diffe renti al panel - Blood basophils absolute 65 text: 0 - 200 cells/ uL Basop hils Absol [place] 65 0 - 200 cells /uL [facility] Not Available Not Available 02/17/2025 13:51:21 02/10/20 25 02/10/2025 CBC W Auto Diffe renti al panel - Blood granulocytes % 54.1 % Granu locyt es % 54.1 % [facility] Not Available Not Available 02/17/2025 13:51:21 02/10/20 25 02/10/2025 CBC W Auto Diffe renti al panel - Blood lymphocytes % 38.4 % Lymph ocyte s % 38.4 % [facility] Not Available Not Available 02/17/2025 13:51:21 02/10/20 25 02/10/2025 CBC W Auto Diffe renti al panel - Blood monocytes % 5.4 % Monoc ytes % 5.4 % [facility] Not Available Not Available 02/17/2025 13:51:21 02/10/20 25 02/10/2025 CBC W Auto Diffe renti al panel - Blood eosinophils % 1.5 % Eosin ophil s % 1.5 % [facility] Not Available Not Available 02/17/2025 13:51:21 02/10/20 25 02/10/2025 CBC W Auto Diffe renti al panel - Blood basophils % 0.6 % Basop hils % 0.6 % [facility] Not Available Not Available 02/17/2025 13:51:21 04/1602/10/2025 CBC W Auto Diffe renti al panel - Blood interpretati on and review of laboratory results Abnorm al Not Available Not Available 13:51:21 02/10/20 25 02/10/2025 Compr ehens davy metab olic 1999 panel - Serum or Plasm a glucose 112 mg/dL low: 65mg/d Lhigh: 139mg/ dL Gluco se 112 65 - 139 mg/dL [facility] Not Available Not Available 02/17/2025 13:51:20 02/10/20 25 02/10/2025 Compr ehens davy metab olic 1999 panel - Serum or Plasm a BUN 9 mg/dL low: 7mg/dL high: 25mg/d L BUN 9 7 - 25 mg/dL [facility] Not Available Not Available 02/17/2025 13:51:20 02/10/20 25 02/10/2025 Compr ehens davy metab olic 2000 panel - Serum or Plasm a creatinine 1.02 mg/dL low: 0.5mg/ dLhigh : 1.05mg /dL Creat inine 1.02 0.50 - 1.05 mg/dL [facility] Not Available Not Available 02/17/2025 13:51:20 02/10/20 25 02/10/2025 Compr ehens davy metab olic 1999 panel - Serum or Plasm a glomerular filtration rate [volume rate/area] in serum, plasma or blood by cystatin C-based formula/1.73 sq M 61 text: > or = 60 mL/min /1.73m 2 eGFR by Cysta tin C 61 > OR = 60 mL/mi n/1.7 3m2 [facility] Not Available Not Available 02/17/2025 13:51:20 02/10/20 25 02/10/2025 Compr ehens davy metab olic 2000 panel - Serum or Plasm a BUN/creatini ne ratio SEE NOTE: text: 6 - 22 (calc) BUN/C reati nine Ratio SEE NOTE: 6 - 22 (calc ) [facility] Not Available Not Available 02/17/2025 13:51:20 02/10/20 25 02/10/2025 Compr ehens davy metab olic 2000 panel - Serum or Plasm a sodium 140 mmol/ L low: 135mmo l/Lhig h: 146mmo l/L Sodiu m 140 135 - 146 mmol/ L [facility] Not Available Not Available 02/17/2025 13:51:20 02/10/20 25 02/10/2025 Compr ehens davy metab olic 1999 panel - Serum or Plasm a potassium 3.8 mmol/ L low: 3.5mmo l/Lhig h: 5.3mmo l/L Potas sium 3.8 3.5 - 5.3 mmol/ L [facility] Not Available Not Available 02/17/2025 13:51:20 02/10/20 25 02/10/2025 Compr ehens davy metab olic 1999 panel - Serum or Plasm a chloride 104 mmol/ L low: 98mmol /Lhigh : 110mmo l/L Chlor jorge 104 98 - 110 mmol/ L [facility] Not Available Not Available 02/17/2025 13:51:20 02/10/20 25 02/10/2025 Compr ehens davy metab olic 1999 panel - Serum or Plasm a CO2 30 mmol/ L low: 20mmol /Lhigh : 32mmol /L CO2 30 20 - 32 mmol/ L [facility] Not Available Not Available 02/17/2025 13:51:20 02/10/20 25 02/10/2025 Compr ehens davy metab olic 1999 panel - Serum or Plasm a calcium 9.4 mg/dL low: 8.6mg/ dLhigh : 10.4mg /dL Calci um 9.4 8.6 - 10.4 mg/dL [facility] Not Available Not Available 02/17/2025 13:51:20 02/10/20 25 02/10/2025 Compr ehens davy metab olic 1999 panel - Serum or Plasm a protein total 7.1 g/dL low: 6.1g/d Lhigh: 8.1g/d L Prote in Total 7.1 6.1 - 8.1 g/dL [facility] Not Available Not Available 02/17/2025 13:51:20 02/10/20 25 02/10/2025 Compr ehens davy metab olic 1999 panel - Serum or Plasm a albumin 4.3 g/dL low: 3.6g/d Lhigh: 5.1g/d L Album in 4.3 3.6 - 5.1 g/dL [facility] Not Available Not Available 02/17/2025 13:51:20 02/10/20 25 02/10/2025 Compr ehens davy metab ol 1999 panel - Serum or Plasm a globulin total 2.8 text: 1.9 - 3.7 g/dL (calc) Globu devika Total 2.8 1.9 - 3.7 g/dL (calc ) [facility] Not Available Not Available 02/17/2025 13:51:20 02/10/20 25 02/10/2025 Compr ehens davy metab olic 1999 panel - Serum or Plasm a albumin/glob ulin ratio 1.5 text: 1.0 - 2.5 (calc) Album in/Gl obuli n Ratio 1.5 1.0 - 2.5 (calc ) [facility] Not Available Not Available 02/17/2025 13:51:20 02/10/20 25 02/10/2025 Compr ehens davy metab olic 1999 panel - Serum or Plasm a bilirubin total 0.4 mg/dL low: 0.2mg/ dLhigh : 1.2mg/ dL Bilir ubin Total 0.4 0.2 - 1.2 mg/dL [facility] Not Available Not Available 02/17/2025 13:51:20 02/10/20 25 02/10/2025 Compr ehens davy metab olic 1999 panel - Serum or Plasm a alkaline phosphatase 123 U/L low: 37U/Lh igh: 153U/L Alkal ine Phosp hatas e 123 37 - 153 U/L [facility] Not Available Not Available 02/17/2025 13:51:20 02/10/20 25 02/10/2025 Compr ehens davy metab olic 1999 panel - Serum or Plasm a AST 19 U/L low: 10U/Lh igh: 35U/L AST 19 10 - 35 U/L [facility] Not Available Not Available 02/17/2025 13:51:20 02/10/20 25 02/10/2025 Compr ehens davy metab ic 1999 panel - Serum or Plasm a ALT 12 U/L low: 6U/Lhi gh: 29U/L ALT 12 6 - 29 U/L [facility] Not Available Not Available 02/17/2025 13:51:20 02/22/20 25 02/21/2025 CT, abdom en + pelvi s, w/wo contr ast No observ ation record ed. [facility] [address], [place], [address], 02/22/2025 11:55:00 Result Notes None recorded. Problems Name Problem SNOMED Code Status Onset Date Resolution Date Notes Provider Name and Address Organization Details Recorded Time Hyperchole sterolemia 05036414 Active 2020 JULIANA LEÓN Attn: Ermias cruz,[address] [facility], [place], [address], [place] [facility] 1 21:34:13 Aortitis 57808770 Active 2021 JULIANA LOPEZ Attn: Accountjordyn g,[address] [facility], [place], [address], [place] [facility] 3 14:15:00 Polymyalgi a rheumatica 87767140 Active 2021 JULIANA LOPEZ Attn: Ermias cruz,[address] [facility], [place], [address], [place] [facility] 4 10:23:55 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 JULIANA LOPEZ Attn: Ermias cruz,[address] [facility], [place], [address], [place] [facility] 3 14:15:04 Gastroesop hageal reflux disease without esophagiti s 372406978 Active 2022 JULIANA LOPEZ Attn: Accountjordyn g,[address] [facility], [place], [address], [place] [facility] 3 14:15:02 Tobacco dependence in remission 946954781 Active 2022 JULIANA LOPEZ Attn: Ermias g,[address] [facility], [place], [address], [place] [facility] 4 10:23:52 Screening for malignant neoplasm of colon Active 2022 records in chart 01/2023, repeat 2027 JULIANA LOPEZ Attn: Accountjordyn g,[address] [facility], [place], [address], [place] [facility] 3 14:13:08 History of malignant neoplasm of cervix 753093151 Active 2022 total abd hysterecto my 1992 JULIANA LOPEZ Attn: Ermias cruz,[address] [facility], [place], [address], [place] [facility] 3 15:05:53 Nicotine dependence in remission 157984862 Active 2023 JULIANA LOPEZ Attn: Dorothyjordyn cruz,[address] [place], [address], [place] [facility] 4 10:23:49 Hyperlipid emia 77500203 Active 2023 JULIANA LOPEZ Attn: Ermias nancy,[address] [place], [address], [place] [facility] 4 11:20:55 Loss of hair 841973239 Active 2013 Ryann Clemente [place], [place] [facility] 5 12:36:38 Menopausal symptom 54584858 Active Luke Zafar [place] [facility] 5 14:43:05 Burn erythema of face AND/OR head Active Maddi Macdonald MD Attn: Ermias cruz,[address] [place], [address], [place] [facility] 5 14:56:59 Eruption 832604341 Active Maddi Macdonald MD Attn: Ermias cruz,[address] [place], [address], [place] [facility] 5 17:18:26 Chronic obstructiv e pulmonary disease 43161016 Active Maddi Macdonald MD Attn: Ermias cruz,[address] [place], [address], [place] [facility] 5 17:18:26 Tobacco dependence syndrome 25887358 Active Maddi Macdonald MD Attn: Ermias cruz,[address] [place], [address], [facility] - [facility] 5 17:18:26 Acute low back pain 664670353 Active Maddi Macdonald MD Attn: Ermias cruz,[address] , [place], [address], [facility] - [facility] 6 15:35:41 Problem Notes None recorded. Procedures Surgical History Date Name Laterality Status Provider Name and Address Organization Details Recorded Time 10/27/19 15 Mammogram screening completed Harmeet Hardy MA [facility] 06/02/2015 14:13:57 10/27/19 06 Date of Last Pap Smear completed Ryann Clemente MA [facility] 04/24/2015 12:39:22 10/27/19 05 Most Recent Mammogram completed Ryann Clemente MA [facility] 04/24/2015 12:39:22 10/27/18 98 Breast Biopsy completed Ryann Clemente MA [facility] 04/24/2015 12:41:29 10/27/18 93 total abdominal hysterectomy with bilateral salpingo-oophorecto my completed JULIANA LOPEZ Attn: Savita, [address] , [place], [address], [facility] - [facility] 06/26/2023 15:04:47 10/27/18 92 Cholecystectomy completed Ryann Clemente MA [facility] 04/24/2015 12:40:21 10/27/18 64 Tonsillectomy completed Ryann Clemente MA [facility] 04/24/2015 12:40:33 Breast Surgery completed Harmeet Hardy MA [facility] 06/02/2015 14:13:57 Appendectomy completed Harmeet Hardy MA [facility] 06/02/2015 14:13:57 Imaging Results Imaging Date Name Status LastModified by Organiz ation Details LastModified Time 02/21/2025 CT, abdomen + pelvis, w/wo contrast completed [address], [place], [address], 02/22/2025 11:55:00 Procedure Notes None recorded. Medical Equipment None Reported. Allergies Allergen ID Allergen Name Allergen Category Reaction Reaction Severity Criticality Documentation Date Start Date Code Code System Note Provider Name and Address Organization Details Recorded Time 023113 acetamino phen / oxycodone medicatio n nausea Not available Not available 06/22/2020 98577 3 RxNorm Tere RHEA Romo null, [place] [facility] 0 14:11:00 66468 Penicilli n Not available hives severe Not available 04/24/2015 04692 RxNorm Ryann RHEA Clemente [place], [place] [facility] 5 12:34:17 64006 strawberr y allergeni c extract food Not available Not available Not available 06/02/2015 01029 4 RxNorm Harmeet Hardy [place], [place] [facility] 5 14:13:57 Medications Name Sig Start Date Stop Date Status Note LastModified by Organization Details LastModified Time methocarbam ol 500 mg tablet Take 2 tablets 3 times a day by oral route as needed for 30 days. 06/22 completed Not Available Not Available Not Available prednisone 10 mg tablet TAKE 1 TABLET BY MOUTH ONCE DAILY NEEDED 12/09 completed Not Available Not Available Not Available nicotine 14 mg/24 hr daily transdermal patch 05/23 completed Not Available Not Available Not Available clindamycin HCl 300 mg capsule TAKE 1 CAPSULE BY MOUTH TWICE DAILY active Not Available Not Available No t Available trazodone 50 mg tablet TAKE 1/2 (ONE-HALF ) TABLET BY MOUTH NEEDED AT BEDTIME active PRN Not Available Not Available No t Available atorvastati n 10 mg tablet TAKE 1 TABLET BY MOUTH ONCE DAILY WITH SUPPER FOR HIGH CHOLESTER OL active Not Available Not Available No t Available azithromyci n 250 mg tablet TAKE 2 TABLETS BY MOUTH ON DAY 1, AND THEN TAKE 1 TABLET BY MOUTH ONCE A DAY ON DAY 2 THROUGH DAY 5 active Not Available Not Available No t Available fluconazole 150 mg tablet TAKE ONE TABLET BY MOUTH A ONE-TIME DOSE active Not Available Not Available No t Available minocycline 100 mg capsule 06/22 completed Not Available Not Available Not Available meloxicam 15 mg tablet TAKE 1 TABLET BY MOUTH ONCE DAILY NEEDED active Not Available Not Available No t Available prednisone 20 mg tablet TAKE 2 TABLETS BY MOUTH ONCE DAILY FOR 5 DAYS 02/23 completed Not Available Not Available Not Available sertraline 100 mg tablet TAKE 1 TABLET BY MOUTH ONCE DAILY AT BEDTIME FOR DEPRESSIO N active Not Available Not Available No t Available prednisone 5 mg tablet TAKE 2 TABLETS BY MOUTH ONCE DAILY FOR 7 DAYS AND THEN 1 ONCE DAILY FOR 7 DAYS 12/09 completed Not Available Not Available Not Available doxycycline monohydrate 100 mg tablet TAKE 1 TABLET BY MOUTH TWICE DAILY FOR 7 DAYS 02/23 completed Not Available Not Available Not Available leflunomide 20 mg tablet TAKE 1 TABLET BY MOUTH ONCE DAILY 02/23 completed Not Available Not Available Not Available ketorolac 0.5 % eye drops INSTILL 1 DROP INTO EYE THREE TIMES A DAY STARTING AFTER SURGERY AND CONTINUIN G FOR 3 WEEKS 02/23 completed Not Available Not Available Not Available prednisolon e acetate 1 % eye drops,suspe nsion INSTILL 1 DROP INTO AFFECTED EYE(S) THREE TIMES DAILY - START 4 HOURS AFTER SURGERY, CONTINUIN G FOR 3 WEEKS 02/23 completed Not Available Not Available Not Available methotrexat e sodium 2.5 mg tablet TAKE 6 TABLETS BY MOUTH ONCE A WEEK active Not Available Not Available No t Available baclofen 10 mg tablet Take 1 tablet 3 times a day by oral route after meals for 30 days. 06/22 completed Not Available Not Available Not Available pantoprazol e 40 mg tablet,saba yed release TAKE 1 TABLET BY MOUTH TWICE DAILY DIRECTED active Not Available Not Available No t Available erythromyci n 5 mg/gram (0.5 %) eye ointment INSTILL INTO BOTH EYES TWICE DAILY 05/14 completed Not Available Not Available Not Available tobramycin 0.3 % eye drops INSTILL 1 DROP INTO AFFECTED EYE(S) BY OPHTHALMI C ROUTE EVERY 4 HOURS 05/23 completed Not Available Not Available Not Available ranitidine 150 mg tablet Take 1 tablet twice a day by oral route for 30 days. 05/23 completed Not Available Not Available Not Available Gentle Laxative (bisacodyl) 5 mg tablet,saba yed release TAKE ALL 4 TABLETS BY MOUTH AT ONE TIME AT 2 PM WITH 8 OZ OF WATER THE DAY BEFORE COLONOSCO PY 02/23 completed Not Available Not Available Not Available prednisone 50 mg tablet 05/23 completed Not Available Not Available Not Available nicotine 21 mg/24 hr daily transdermal patch 05/23 completed Not Available Not Available Not Available sertraline 25 mg tablet TAKE 1 TABLET BY MOUTH ONCE DAILY 05/23 completed Not Available Not Available Not Available folic acid 1 mg tablet TAKE 1 TABLET BY MOUTH ONCE DAILY active Not Available Not Available No t Available pravastatin 20 mg tablet TAKE 1 TABLET BY MOUTH ONCE DAILY AT BEDTIME 06/18 completed Not Available Not Available Not Available estradiol 0.5 mg tablet TAKE ONE TABLET BY MOUTH ONCE DAILY 06/22 completed Not Available Not Available Not Available ergocalcife rol (vitamin D2) 1,250 mcg (50,000 unit) capsule TAKE 1 CAPSULE BY MOUTH ONCE A WEEK 12/09 completed Not Available Not Available Not Available Pepcid 20 mg tablet Take 1 tablet twice a day by oral route as directed for 30 days. 05/23 completed Not Available Not Available Not Available polyethylen e glycol 3350 17 gram/dose oral powder IN A PITCHER, MIX ENTIRE BOTTLE IN ONE 64 OZ BOTTLE OF YELLOW OR GREEN GATORADE. AT 5 PM THE EVENING BEFORE COLONOSCO PY, DRINK ONE 8 OZ GLASS EVERY 15 MINUTES UNTIL GONE. DRINK 4 GLASSES OF WATER AFTER FINISHING THIS MIXTURE. 06/26 completed Not Available Not Available Not Available methylpredn isolone 4 mg tablets in a dose pack Take 1 package every day by oral route with meals for 6 days. 06/22 completed Not Available Not Available Not Available albuterol sulfate HFA 90 mcg/actuati on aerosol inhaler INHALE 2 PUFFS BY MOUTH EVERY 4 TO 6 HOURS NEEDED active Not Available Not Available No t Available sertraline 50 mg tablet TAKE 1 TABLET BY MOUTH ONCE DAILY 06/26 completed Not Available Not Available Not Available doxycycline hyclate 100 mg tablet TAKE 1 TABLET BY MOUTH TWICE DAILY FOR 7 DAYS 12/09 completed Not Available Not Available Not Available loratadine 10 mg tablet 06/22 completed Not Available Not Available Not Available naproxen 500 mg tablet Take 1 tablet twice a day by oral route with meals for 30 days. 06/22 completed Not Available Not Available Not Available nicotine 7 mg/24 hr daily transdermal patch 05/23 completed Not Available Not Available Not Available nicotine 21mg/24hr-1 4mg/24hr-7m g/24hr daily transderm patches,seq uentl Apply 1 patch every day by transderm al route for 90 days. 05/23 completed Not Available Not Available Not Available moxifloxaci n 0.5 % eye drops INSTILL 1 DROP THREE TIMES DAILY - STARTING 1 DAY PRIOR TO SURGERY, CONTINUIN G FOR 1 WEEK AFTER 02/23 completed Not Available Not Available Not Available Multivitami n 50 Plus tablet Take 1 tablet every day by oral route with meals. 06/18 completed Not Available Not Available Not Available nitrofurant oin monohydrate /macrocryst als 100 mg capsule TAKE 1 CAPSULE BY MOUTH TWICE DAILY WITH MORNING MEAL AND WITH EVENING MEAL active Not Available Not Available No t Available Metrogel 1 % topical APPLY TO THE AFFECTED AREA(S) BY TOPICAL ROUTE ONCE DAILY ; RUB IN GENTLY AND COMPLETEL Y 06/22 completed Not Available Not Available Not Available prednisolon e 10 mg disintegrat ing tablet denied. New rx sent this morning 05/23 completed Not Available Not Available Not Available cholecalcif augustin (vitamin D3) 1,250 mcg (50,000 unit) capsule TAKE 1 CAPSULE BY MOUTH ONCE A WEEK WITH MEALS 02/23 completed Not Available Not Available Not Available diclofenac 1 % topical gel APPLY 2 GRAMS TO THE AFFECTED AREA(S) BY TOPICAL ROUTE 4 TIMES PER DAY 12/09 completed Not Available Not Available Not Available Humira(CF) Pen 40 mg/0.4 mL subcutaneou s kit active Not Available Not Available Not Available Humira(CF) Pen Crohn's-Ulc Colitis-Hid Sup Strt 80 mg/0.8 mL subcut kt 02/23 completed Not Available Not Available Not Available Paxlovid 300 mg (150 mg x 2)-100 mg tablets in a dose pack TAKE 3 TABLETS TOGETHER (TWO 150 MG NIRMATREL VIR TABLETS AND ONE 100 MG RITONAVIR TABLET) BY MOUTH TWICE DAILY FOR 5 DAYS. 12/09 completed Not Available Not Available Not Available Vitals Date Recorded Body height Body mass index (BMI) Body weight Oxygen saturation Oxygen saturation in Arterial blood by Pulse oximetry Heart rate Respiratory rate Systolic blood pressure Diastolic blood pressure Provider Name and Address Organization Details Last Updated DateTime 3 158.75 cm 28 kg/m2 62847.9 2 g 95 % 95 % 70 /min 16 /min 118 mm[Hg] 74 mm[Hg] Syl Boucher MA [facility] 3 13:59:40 Date Recorded Body height Body mass index (BMI) Body weight Oxygen saturation Oxygen saturation in Arterial blood by Pulse oximetry Heart rate Respiratory rate Systolic blood pressure Diastolic blood pressure Provider Name and Address Organization Details Last Updated DateTime 3 158.75 cm 28.1 kg/m2 63805.1 1 g 96 % 96 % 76 /min 16 /min 116 mm[Hg] 72 mm[Hg] Syl Boucher MA [facility] 3 13:49:36 Date Recorded Body height Body mass index (BMI) Body weight Oxygen saturation Oxygen saturation in Arterial blood by Pulse oximetry Heart rate Respiratory rate Systolic blood pressure Diastolic blood pressure Provider Name and Address Organization Details Last Updated DateTime 4 158.75 cm 27 kg/m2 40884.2 6 g 99 % 99 % 85 /min 16 /min 122 mm[Hg] 72 mm[Hg] Syl Boucher MA [facility] 4 15:08:22 Date Recorded Body height Body mass index (BMI) Body weight Oxygen saturation Oxygen saturation in Arterial blood by Pulse oximetry Heart rate Respiratory rate Systolic blood pressure Diastolic blood pressure Provider Name and Address Organization Details Last Updated DateTime 4 158.75 cm 27.4 kg/m2 01650.4 4 g 96 % 96 % 73 /min 16 /min 116 mm[Hg] 72 mm[Hg] Tina Moreno MA [facility] 4 10:56:40 Social History Question Answer Notes LastModified by Organizat ion Details LastModified Time Tobacco Smoking Status Former Smoker quit 2019 JULIANA LOPEZ Attn: [place], [address], [facility] [place] 02/24/2024 15:38:54 Do You Have An Advance Directive? No Information not available 04/24/2015 What Is Your Level Of Alcohol Consumption? None Information not available 04/24/2015 Are You Blind Or Do You Have Difficulty Seeing? No Information not available 06/18/2022 Is Blood Transfusion Acceptable In An Emergency? Yes Information not available 04/24/2015 What Is Your Level Of Caffeine Consumption? Moderate Information not available 04/24/2015 How Much Tobacco Do You Chew? None Information not available 04/24/2015 In The 14 Days Before Symptom Onset, Have You Had Close Contact With A Laboratory-confir med COVID-19 While That Case Was Ill? No Information not available 06/18/2022 In The 14 Days Before Symptom Onset, Have You Had Close Contact With A Person Who Is Under Investigation For COVID-19 While That Person Was Ill? No Information not available 06/18/2022 Have You Been To An Area Known To Be High Risk For COVID-19? No Information not available 06/18/2022 Are You Currently Employed? Yes Information not available 04/24/2015 Are You Deaf Or Do You Have Serious Difficulty Hearing? No Information not available 06/18/2022 What Type Of Diet Are You Following? REGULAR Information not available 04/24/2015 Which Illicit Or Recreational Drugs Have You Used? None [email or web address] Information not available 08/03/2020 Do You Or Have You Ever Used E-cigarettes Or Vape? Current User Of Electronic Cigarettes Information not available 06/22/2020 Education 12 Information no t available 04/24/2015 What Is Your Occupation? [email or web address] Information not available 12/11/2022 Are There Any Guns Present In Your Home? No Information not available 06/18/2022 Live Alone Or With Others? Alone Information not available 04/24/2015 What Was The Date Of Your Most Recent Tobacco Screening? 06/09/2024 Information not available 06/09/2024 How Many Children Do You Have? 3 Information not available 04/24/2015 What Is Your Current Pack Years? [email or web address] hayes Information not available 06/19/2022 Performs Monthly Self-breast Exam? No Information no t available 04/24/2015 Do You Use Protection During Sex? Always Information not available 04/24/2015 What Is Your Relationship Status? Information not available 04/24/2015 Seat Belts Used Routinely Yes Information not available 04/24/2015 Are You Sexually Active? No Information not available 04/24/2015 Do You Have Smoke And Carbon Monoxide Detectors In Your Home? Yes [email or web address] Information not available 04/09/2021 At What Age Did You Start Smoking Tobacco? 14 Information not available 04/24/2015 Are You Passively Exposed To Smoke? Yes Information no t available 06/18/2022 Do You Or Have You Ever Used Smokeless Tobacco? Never Used Smokeless Tobacco Information not available 06/22/2020 How Much Tobacco Do You Smoke? 1 PPD Information not available 06/19/2022 General Stress Level Medium Information not available 04/24/2015 Do You Feel Stressed (tense, Restless, Nervous, Or Anxious, Or Unable To Sleep At Night)? [id number] Information not available 06/18/2022 Do You Use Any Illicit Or Recreational Drugs? No Information not available 06/18/2022 Do You Use Sunscreen Routinely? No Information not available 04/24/2015 Has Tobacco Cessation Counseling Been Provided? Yes Information not available 06/18/2022 On What Date Was Tobacco Cessation Counseling Provided? 06/09/2024 Information not available 06/09/2024 How Many Years Have You Smoked Tobacco? 40 Information not available 04/24/2015 Do You Or Have You Ever Used Any Other Forms Of Tobacco Or Nicotine? Yes Information not available 06/19/2022 Sex: Female Functional Status Question Answer Note LastModified by Organization D etails LastModified Time Are you able to care for yourself? Yes Information n ot available 06/18/2022 What is your exercise level? None Information not available 04/24/2015 Mental Status None recorded. Family History Relationship Description Onset Age of this Age Resolved Age Notes LastModified by Organization Details LastModified Time Maternal Aunt Malignant tumor of breast 60 Not available 06/02 14:13:57 Paternal Aunt Malignant tumor of breast 65 Not available 06/02 14:13:57 Mother Ovarian cancer, disseminated 78 arthri tis Not available 06/02/2015 14:13:57 Daughter Suspected cervical cancer Not available 06/02 14:13:57 Father Heart disease 83 7 bypass , COPD Not available 06/02/2015 14:13:57 Father Harmful pattern of use of alcohol Not available 06/02 14:13:57 Father Coronary arterioscler osis Not available 06/02 14:13:57 Father Hypertensive disorder Not available 06/02 14:13:57 Father Hypercholest erolemia Not available 06/02 14:13:57 Father Myocardial infarction Not available 04/2015 14:13:57 Father Osteoporosis Not claudia ilable 06/02/2015 14:13:57 Brother Harmful pattern of use of alcohol Not available 06/02 14:13:57 Brother Asthma Not availabl e 06/02/2015 14:13:57 Brother Depressive disorder Not available 06/02 14:13:57 Medical History Condition Response Coronary Artery Disease N Other N Atrial Fibrillation N High Blood Pressure N Breast Cancer N Lung Disease N Depression Y COPD Y Blood Clots N Breast Problem N Anesthesia Complications N Headaches/Migraines N Anxiety Disorder Y Muscle, Joint, or Bone Problems Y Arthritis N Infertility N Polyps N Acid Reflux (GERD) N Cancer N Stroke N ADHD N Endometriosis N High Cholesterol Y Liver Disease N Fibromyalgia N Schizophrenia N Headaches N Kidney Disease N Heart Problems N Thyroid Problems N Kidney or Bladder Problems N GI Problems N Acne N Eating Disorder N Skin Problems N Anemia N Heart Attack (AR) N Diabetes N Ovarian Cancer N Blood Transfusions N Seizures/Epilepsy N Abuse/Domestic Violence N Asthma N Allergies N Substance Abuse N Hepatitis N Heart Disease N Pre-Eclampsia N Hypertension N Heart Failure Y Osteoporosis N Gynecological History Statement/Question Response Abnormal Pap Y Date of Last Mammogram STIs/STDs N HPV Vaccine N Most Recent Mammogram 10/27/2004 Age at Menarche 13 Current Control Method Hysterectom y Age at First Child 15 Sexually Active? N Menses Monthly N Date of Last Pap Smear 10/27/2005 Sexual Problems? N LMP Unknown Desired Control Method None Obstetrics History GPAL:G 4 P 3 0 1 3 Type Value Multiple Births 0 Full Term 3 Induced 0 Spontaneous 1 Premature 0 Living 3 Ectopics 0 Total 4 Immunizations Vaccine Type Date Status Note Provider Nam e and Address Organization Details Recorded Time COVID-19, mRNA, LNP-S, PF, 100 mcg/0.5mL dose or 50 mcg/0.25mL dose 1 completed Morales Becerra [place], [place] [facility] 04/09/2021 15:06:28 COVID-19, mRNA, LNP-S, PF, 100 mcg/0.5mL dose or 50 mcg/0.25mL dose 1 completed Morales Bec[place] [facility] 04/09/2021 15:06:39 influenza, unspecified formulation 2 completed Domonique Driver C[place] [facility] 12/09/2022 10:55:13 Influenza, split virus, quadrivalent, preservative 0 completed Elida Pickard [place] [facility] 08/11/2020 10:22:50 Influenza, split virus, quadrivalent, PF 1 completed Alysha Walter RN [place] [facility] 11/06/2021 10:13:32 Past Encounters Encounter ID Performer Location Encounter Start Date Encounter Closed Date Diagnosis/Indication Diagnosis SNOMED-CT Code Diagnosis ICD10 Code Diagnosis Note [id number] MD Maryam Us (HARP REPAIRER) [address] [place] [address] 04/24/2015 12:04:50 04/24/2015 13:48:00 Gynecologic examination 47059088 Screening mammography 02962613 Menopausal symptom 51300576 [id number] MD Maryam Muniz (Adult Med) [address] [place] [address] 06/02/2015 13:43:27 06/02/2015 17:53:07 Burn erythema of face AND/OR head 67639682 [id number] MD Maryam Muniz (Adult Med) [address] [place] [address] 06/29/2015 15:48:48 06/29/2015 17:54:31 Eruption 232410541 Chronic ob structive pulmonary disease 12819876 Tobacco de pendence syndrome 03119715 [id number] Maddi Macdonald MD [facility] (Adult Med) [address] [place] [address] 11/06/2015 13:59:17 11/07/2015 11:32:11 Acute low back pain 532305993 M54.5 [id number] Maddi Macdonald MD [facility] (Adult Med) [address] [place] [address] 10/17/2016 15:03:27 10/17/2016 18:10:50 Chronic conjunctivitis 31605150 H10.403 Rosacea 563571182 L71.9 Osteoarthritis 004020313 M19.90 [id number] MD Maryam Muniz (Adult Med) [address] [place] [address] 02/17/2017 12:21:14 02/17/2017 16:52:25 Rosacea 515320397 L71.9 Will refere to [facility] dermatolog y. [id number] HUNTER Altamirano [address] [place] [phone] 03/21/2020 15:23:35 03/23/2020 11:44:19 Suspected COVID-19 952002060 Z03.818 D/w pt the current pandemic of COVID-19 and call for social isolation in order to blunt the curve and minimize risk and spread. Encouraged patient and family to take restrictio ns seriously. They have verbalized understand ing of such. [id number] HUNTER Altamirano [address] [place] [address] 03/22/2020 13:23:08 03/23/2020 15:30:41 Suspected COVID-19 527895600 Z03.818 D/w pt the current pandemic of COVID-19 and call for social isolation in order to blunt the curve and minimize risk and spread. Encouraged patient and family to take restrictio ns seriously. They have verbalized understand ing of such. Viral syndrome 675375495 B34.9 [id number] Aubrie Coleman MD [facility] [address] [place] [address] 06/22/2020 13:49:34 06/26/2020 15:16:23 Chronic anxiety 484547497 F41.9 Nutritional disorder 249 2008 E63.9 Administra tion of pneumococcal vaccine 76222215 Z23 will administer when vaccine is available. 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.8 [id number] Aubrie Coleman MD [facility] [address] [place] [address] 08/11/2020 09:57:59 08/14/2020 12:56:45 [id number] Aubrie Coleman MD [facility] [address] [place] [facility] [address] 04/09/2021 08:35:58 04/11/2021 13:24:02 Polymyalgia rheumatica [id number] M35.3 Adult heal th examination 716031667 Z00.00 [id number] Aubrie Coleman MD [facility] [address] [place] [facility] [address] 05/07/2021 09:47:57 05/21/2021 09:10:07 [id number] JULIANA LEÓN [facility] [address] [place] [address] 05/23/2021 08:07:18 05/25/2021 06:08:04 Vitamin D deficiency 68978379 E55.9 Hypercholesterolemia 136 03081 E78.00 starting pravstatin as it has less myalgia side effects. will obtain cmp and cholestero l in 3 months [id number] JULIANA ELÓN [facility] [address] [place] [address] 09/14/2021 13:56:24 09/17/2021 13:14:04 Administration of influenza vaccine 54994133 Z23 [id number] Kostas rhodes MD [facility] [address] [place] [address] 06/18/2022 14:18:12 06/19/2022 12:33:44 Aortitis 65746464 I77.6 ddx with polymyalgi a rheumatica and aortitis 2 yrs ago and was following with Stacey to [place] [facility] 05/29/22- fevers, body aches, 101.7, slight relief with tylenol x2 daystransf erred to [place], admitted for 5 daysput on steroids and blood thinners: CT angio chest/abd/ pelvis showed focal eccentric wall thickening in descending thoracic aorta, longer segment of wall thickening in infrarenal abdominal aorta, both regions exhibit suggestion of mild adventitia l enhancemen t suggesting active aortitisre cent EGD showed intestinal metaplasia on gastric biopsies, f/u in 6 monthssees new Rheum, Dr. Germain on 09/24/22PE x- nlc/o facial pain/tight ness- low dose prednisone x7 daysrheum referral Screening for malignant neoplasm of breast [id number] Z12.39 due for mammoh/o multiple lumpectomi es [id number] Kostas rhodes MD [facility] [address] [place] [address] 12/09/2022 10:46:23 12/09/2022 11:28:53 Obesity 921196836 E66.9 due for routine labs Aortitis 08093102 I77.6 12/09/22:fo [facility]- normal 06/18/22:dd x with polymyalgi a rheumatica and aortitis 2 yrs ago and was following with Stacey to [place] [facility] 05/29/22- fevers, body aches, 101.7, slight relief with tylenol x2 daystransf erred to [place], admitted for 5 daysput on steroids and blood thinners: CT angio chest/abd/ pelvis showed focal eccentric wall thickening in descending thoracic aorta, longer segment of wall thickening in infrarenal abdominal aorta, both regions exhibit suggestion of mild adventitia l enhancemen t suggesting active aortitisre cent EGD showed intestinal metaplasia on gastric biopsies, f/u in 6 monthssees new Rheum, Dr. Germain on 09/24/22PE x- nlc/o facial pain/tight ness- low dose prednisone x7 daysrheum referral Screening for malignant neoplasm of breast 147567297 Z12.39 due for mammoh/o multiple lumpectomi es Depression screening 171 768414 Z13.31 PHQ 11a lot of people in her house, things are chaoticbra in doesn't shut offnot sleeping for 3yrs, son has been there off and on for 8 yrs, Son was addicted to drugsdoes not want meds at this timeon zoloft 50 Gastroesop hageal reflux disease without esophagitis [id number] K21.9 for GERD and colonoscop yon pantoprazo le 40 Poor concentration 93002 005 R41.840 Rheum told her could be from large doses of steroid in hospitalst arting to lose some of penitentiary memorydiff iculty with concentrat ing, unable to drive or read a bookcan forget what she's saying in the middle of her sentencech panfilo vitaminsf/ u in 1 mo for [facility] 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 Germain 11/23/22: A ortitis/Re troperiton eal fibrosisIn flammatory arthritisP robable psoriasis, facial rash-- facial rash has good response to prednisone GERD, gastritis/ esophagiti sSignifica nt family history of Crohn's disease(AN A 1:320, Anca indetermin ate/neg, RF-, CCP-, RENÉ-, myositis panel-, normal IgG4, Saccharomy morgan cerevisiae IgG+ IgA+, dsDNA-)Ser onegative spondyloar thropathy or autoinflam matory spectrum disorder is possible, which can be associated with aortitis. Other possibilit ies including vasculitis associated with retroperit vergara fibrosis, other large vessel vasculitis . Aortitis, inflammato ry arthritis- restart methotrexa te 15 mg per week, folic acid 1 mg daily- continue Humira 40 mg every 2 weeks- check urinalysis due to abnormal urine odor- recent CBC and CMP showed mild lymphocyto sis.- Return to clinic in 2 months.MAVIS D- referral to [facility] for [facility] monitoring . [id number] Lidya Cannon DO [facility] [address] [place] [address] 12/16/2022 09:15:28 12/16/2022 14:24:39 Screening for malignant neoplasm of colon 125160753 Z12.11 Last colonoscop y . No FH of colon cancer. Significan t FH of Crohn's. Gastric in testinal metaplasia 22343383 K31.A0 Continue with pantoprazo le; await EGD resultsPre vious EGD 06/03/2022 at [place]; recommende d 6 month follow up Esophageal dysphagia 408 60488 R13.19 EGD with dilation and PPI [id number] Kostas rhodes MD [facility] [address] [place] [address] 05/13/2023 13:56:26 05/13/2023 14:46:34 Acute conjunctivitis of left eye [id number] 54117 H10.32 Weeping, L eye redness and photophobi aSaw optho end of March told she has cataracts and will need corrective surgeryWen t to urgent care 6 days ago diagnosed with acute conjunctiv itis and give eye drops but were back-order edRheumato logist gave erythromyc in gelreceive d eye drops, has not usedPEx- L eye injected conjunctiv aAdvised to use moxifloxac in drops instead of gelIf eye does not clear up in the next 5 days, return to opthamolog y Dyspnea on exertion 6084 5006 R06.09 Relates to prior COPD diagnosisc /o SOB due to heatno concerning sxPEx- nlWould like inhaler, trial albuterol for rescuePFTs ordered to confirm diagnosisF ollow-up pending results Tobacco de pendence in remission 345091236 F17.201 quit smoking 2020was smoking 1.5 ppd for 20+ yearsVapes 5%, one pod lasts 2 weeksTold she had COPD, not currently receiving treatmentG iven albuterol inhaler as rescuePFT' s ordered for official diagnosisF ollow-up pending results [id number] Kostas rhodes MD [facility] [address] [place] [address] 06/26/2023 13:38:44 06/26/2023 14:47:41 Screening for malignant neoplasm of breast 949653470 Z12.39 due for mammoh/o multiple lumpectomi esdeclines at this time Difficulty sleeping 3013 95431 Z72.820 x1 mounable to stay asleepcan' t nap, states she is exhausted all the timeno exacerbati ng factorstri ed OTC meds w/o relieftria l low dose trazodonef /u in 1 mo if sx do not improve Mixed anxi ety and depressive disorder 657994987 F41.8 06/26/23:PH Q 6states that zoloft doesn't really do anything for me would like to increase zoloft, trial 100 mg 12/09/22:PH Q 11a lot of people in her house, things are chaoticbra in doesn't shut offnot sleeping for 3yrs, son has been there off and on for 8 yrs, Son was addicted to drugsdoes not want meds at this timeon zoloft 50 Pre-surger y evaluation 701379439 Z01.818 cataract extraction 07/03/2023me dically cleared for surgerywil l fax form, chart notes and med list [id number] Kostas rhodes MD [facility] [address] [place] [address] 02/24/2024 15:03:29 02/24/2024 15:45:56 Screening for malignant neoplasm of breast 898888775 Z12.39 02/25/24: sent mammo 05/2023:due for mammoh/o multiple lumpectomi esdeclines at this time Mixed anxi ety and depressive disorder 678134589 F41.8 02/24/24: PHQ 0refill zoloft, doing well on current dose 06/26/23:PH Q 6states that zoloft doesn't really do anything for me would like to increase zoloft, trial 100 mg 12/09/22:PH Q 11a lot of people in her house, things are chaoticbra in doesn't shut offnot sleeping for 3yrs, son has been there off and on for 8 yrs, Son was addicted to drugsdoes not want meds at this timeon zoloft 50 Gastroesop hageal reflux disease without esophagitis 526362676 K21.9 for GERDon pantoprazo le 40 Administra tion of pneumococcal vaccine 05420242 Z23 encouraged pt to receive prevnar 20 vaccinerep orts that she has be off her rheum meds for 1 wk before and 1 wk after vaccinewil l schedule at pharmacy to do prevnar and shingles vaccines Vitamin D deficiency 347 00695 E55.9 02/24/24: has not been taking Vit D 50,000re-c heck today 11/2022: Vit D 7start Vit D3 Overweight 297061096 E66 .3 discussed increasing exercise and healthier food options, high protein, low fat dietroutin e labsf/u in 6 mo Nicotine d ependence in remission 702206133 F17.201 30 pk year historyqui t 02/2020orde red LDCT scan Aortitis 98607154 I77.[address] Germain 12/01/23: added meloxicam Inflammato ry arthritis is reasonably controlled Humira and methotrexa te. Both medicines are effective. Aortitis has been in remission. Aortitis, inflammato ry arthritis- continue Humira 40 mg every 2 weeks.- continue methotrexa te 15 mg per week, folic acid 1 mg daily.- patient knows to hold methotrexa te today due to cold symptoms and cough.- add meloxicam 15 mg daily p.r.n. for arthralgia .- check CBC and CMP, inflammato ry markers today.- return to clinic in 3 monthsGERD - had normal EGD and colonoscop y in 2022. On pantoprazo le. 12/09/22:fo marlene with Dr. Faulkner ed CBC and CMP- normal per OV with Dr. Germain 11/23/22: A ortitis/Re troperiton eal fibrosisIn flammatory arthritisP robable psoriasis, facial rash-- facial rash has good response to prednisone GERD, gastritis/ esophagiti sSignifica nt family history of Crohn's disease(AN A 1:320, Anca indetermin ate/neg, RF-, CCP-, RENÉ-, myositis panel-, normal IgG4, Saccharomy morgan cerevisiae IgG+ IgA+, dsDNA-)Ser onegative spondyloar thropathy or autoinflam matory spectrum disorder is possible, which can be associated with aortitis. Other possibilit ies including vasculitis associated with retroperit vergara fibrosis, other large vessel vasculitis . Aortitis, inflammato ry arthritis- restart methotrexa te 15 mg per week, folic acid 1 mg daily- continue Humira 40 mg every 2 weeks- check urinalysis due to abnormal urine odor- recent CBC and CMP showed mild lymphocyto sis.- Return to clinic in 2 months.MAVIS D- referral to [facility] for EGD monitoring . 06/18/22:dd x with polymyalgi a rheumatica and aortitis 2 yrs ago and was following with Stacey to [place] [facility] 05/29/22- fevers, body aches, 101.7, slight relief with tylenol x2 daystransf erred to [place], admitted for 5 daysput on steroids and blood thinners: CT angio chest/abd/ pelvis showed focal eccentric wall thickening in descending thoracic aorta, longer segment of wall thickening in infrarenal abdominal aorta, both regions exhibit suggestion of mild adventitia l enhancemen t suggesting active aortitisre cent EGD showed intestinal metaplasia on gastric biopsies, f/u in 6 monthssees new Rheum, Dr. Germain on 09/24/22PE x- nlc/o facial pain/tight ness- low dose prednisone x7 daysrheum referral [id number] Kostas rhodes MD [facility] [address] [place] [address] 06/09/2024 10:50:11 06/09/2024 11:16:33 Local infection of wound 83334923 T14.90XA x2 wksdropped brick on R lower leg/anklen ot improving with OTC remedieswe nt to UC on 06/03/24 and was given clindamyci nPEx- 2 cm x 2 cm circular, dry ulcerated lesion to anterior aspect of R lower leg, mild TTP without erythema or purulencer eassured pt, wound does not look infected, take full course of abxf/u if sx worsen after finish abx Depression screening 171 078705 Z13.31 PHQ 1 [id number] Dejuan Garcia MD [facility] [address] [place] [address] 09/02/2024 12:06:09 09/02/2024 16:19:19 Dysuria 46980512 R30.0 Health Concerns Section Related Observation LastModified by Organization Detai ls LastModified Time None Recorded Concern Status LastModified by Organization Details LastModified Time None Recorded Advance Directives Directive N: Payers Encounter Date Sequence Insurance Name Policy Number Policy Burdick Covered Member ID Burdick Member ID Guarantor Name 05/13/2023 1 [place] Noelle G Zucha [id number] Noelle Kristyn Zucha 06/26/2023 1 [place] Noelle G Zucha [id number] Noelle Kristyn Zucha 06/26/2023 2 [place] WHEN [place] OR MEDICARE REPLACEMENT PRIMARY) Noelle Zucha [id number] Noelle Kristyn Zucha 02/24/2024 1 [place] Noelle G Zucha [id number] Noelle Kristyn Zucha 02/24/2024 2 [place]PLACEMENT [place]) Noelle Zucha [id number] Noelle Kristyn Zucha 06/09/2024 1 [place] Noelle G Zucha [id number] Noelle Kristyn Zucha 06/09/2024 2 [place] OR [place] REPLACEMENT PRIMARY) Noelle Zucha [id number] Noelle Kristyn Zucha 09/02/2024 1 [place] Noelle G Zucha [id number] Noelle Kristyn Zucha 09/02/2024 2 [place]IC[place] REPLACEMENT [place]) Noelle Man [id number] Noelle Man Notes Date Note Type Note Provider Name and Address Organization Details Recorded Time 05/13/2023 text/html 63 yo female presents today for eye infection and SOB. ENT:Went to eye doctor at the end of March 2023 for L weeping red eyeTold she has cataracts and will need corrective surgery, nothing said about infectionWent to urgent care 6 days ago for left eye gunk, weeping, redness, and had light sensitivity (no crusting)Diagnosed with acute conjunctivitis , gave antibiotic drops but they were back orderedHad field operations manager visit and she sent script for erythromycin ointment twice a day (been using for 5 days) w/o improvementShe was finally able to get eye drops, but was worried about switching from the gel to drops COPD:Was a 1.5ppd smoker for over 20 yearsReports the summer heat is making it hard to breathe and COPD acting upInterested in inhaler or chair caner referralSOB on exertion, describes as chest feels tight, unable to get deep breath in Denies fever, chills, SOB at rest, chest pain, n/v/d, abd pain, dizziness, weakness, or headaches. JULIANA LOPEZ Attn: Accounting[address] [facility], [place], [address], [facility] 05/14/2023 14:26:55 06/26/2023 text/html Pt presents for surgical clearance for cataract surgery scheduled 07/03/23.C/o difficulty sleeping for 1 mo. She is able to fall asleep around 10 PM, but doesn't stay asleep. Wakes up every 30 minutes. States that she is exhausted throughout the day and is unable to nap. Pt has tried melatonin 10 mg and sleepy time tea w/o relief. No increased stress, worsening anxiety or depression. JULIANA LOPEZ Attn: Accounting[address] [facility], [place], [address], [facility] 06/26/2023 15:10:36 02/24/2024 text/html Pt presents for med refills. Reports that she has been out of her zoloft and pantoprazole for 1 wk. States that Rheum started her on meloxicam to help with her joint pain. No concerns today. Denies fever, chills, chest pain, SOB, n/v/d, abd pain, dizziness, weakness, or headaches. JULIANA LOPEZ Attn: Accounting[address] [place], [address], [facility] 02/25/2024 10:24:48 06/09/2024 text/html Pt presents for wound check. Reports two weeks ago she was working outside and dropped a brick on her lower leg/R ankle. She cleaned wound with hydrogen peroxide and neosporin, but wound turned red and had pus. Pt went to on 06/03/24 and was given clindamycin with improvement of symptoms. JULIANA LOPEZ Attn: Accounting[address] [facility], [place], [address], [facility] 06/10/2024 09:03:13 OBGyn Episode No OBEpisode recorded.
--- OUTSIDE RECORDS SUMMARY | 2025-03-02 12:24 | XMS_ITS | Clinical Summary ---
Author Organization [facility] [employer] Address [address] [place] [address] Care Team Providers Care Hair Dresser Name Role Phone Abimbola Sanchez PA-C Primary Care Provider Source Comments [facility],non-owned Affiliates and Associated Physician Practices is amultiple site organization consisting of ambulatory clinics and hospital sitesin [place], [place], [place] and [place]. This disclosure is being madepursuant to the Care Everywhere program and may not contain all information available regarding this patient. Last updated 18.[facility] [employer] Allergies Active Allergy Reactions Criticality Noted Date Comments Latex Other Low 10/14/2017 Skin peeling [place] Unknown 11/26/2023 Medications * Be aware that medications may not be up to date on this document. Alwaysverify current medications with the patient. ergocalciferol (Drisdol) 1.25 MG (96858 UT) capsule Active traZODone (Desyrel) 50 MG [...] - 02/14/2025 11:59 PM CDT Hospital Encounter [facility] [address] [place] [address] Shae Germain MD Rheumatology Discharge Disposition: Home or Self Care 02/14/2025 10:40 AM CDT Office Visit [facility] - Rheumatology [address], [address] [place] [address] Shae Germain MD Inflammatory arthritis (Primary Dx); Psoriatic arthritis (HCC) 02/14/2025 Results Follow-Up [facility] - Rheumatology [address] [place] [address], [address] [place] [address] Shae Germain MD 02/07/2025 Refill [facility] - Rheumatology [address], [address] [place] [address] Shae Germain MD MEDICATION REFILL 02/04/2025 Refill [facility] - Rheumatology [address] [place] [address] Shae Germain MD MEDICATION REFILL 01/10/2025 Refill [facility] - Rheumatology [address] [place] [address] Shae Germain MD Refill Request 12/05/2024 Telephone [facility] - Rheumatology [address] [place] [address], [address] [place] [address] Shae Germain MD Medication Prior Auth Request 12/04/2024 Telephone [facility] Rheumatology [address] [place] [address], [address] [place] [phone] Shae Germain MD Medication Prior Auth Request [...] on file 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 Gender Identity Not on file Sexual Orientation [...] Description 06/13/2025 11:20 AM CDT Office Visit [facility] - Rheumatology [address], [address] [place] [address] Shae Germain MD [address] [facility] [place] [address] Health Maintenance Due Date Last Done [...] C-REACTIVE PROTEIN (02/09/2025 3:47 PM CDT) Pathologist [facility] C-Reactive Protein <5.0 <8.0 mg/L [facility] Comment: REPORT COMMENT: FASTING:NO Test Performed at: [facility] [address] YAKOV DAILEY MD Blood BLOOD SPECIMEN / Unknown 02/09/2025 3:47 PM CDT 02/09/2025 3:51 PM CDT Shae Germain MD LAB - CHEMISTRY ORDERABLES Final Result Performing Organization Address [facility] Co de Phone Number [address] [address] * ERYTHROCYTE SEDIMENTATION RATE (02/09/2025 3:47 PM CDT) [facility] Erythrocyte Sedimentation Rate Westergren 16 < OR = 30 mm/h [facility] Comment: Test Performed at: [facility] [address] YAKOV DAILEY MD Blood BLOOD SPECIMEN / Unknown 02/09/2025 3:47 PM CDT 02/09/2025 3:51 PM CDT Shae Germain MD LAB - HEMATOLOGY ORDERABLES Marlee l Result Performing Organization Address [facility] Co de Phone Number [address] [address] * (ABNORMAL) CBC WITH DIFFERENTIAL (02/09/2025 3:47 PM CDT) [facility] White Blood Cell Count 10.8 3.8 - [...] 0.6 % [facility] Comment: Test Performed at: [facility] [address] [place] [address] YAKOV DAILEY MD Blood BLOOD SPECIMEN / Unknown 02/09/2025 3:47 PM CDT 02/09/2025 3:51 PM CDT Shae Germain MD LAB - HEMATOLOGY ORDERABLES Marlee l Result [address] [address] * COMPREHENSIVE METABOLIC PANEL (02/09/2025 3:47 PM [...] 29 U/L [facility] Comment: Test Performed at: [facility] [address] [place] [address] YAKOV DAILEY MD Blood BLOOD SPECIMEN / Unknown 02/09/2025 3:47 PM CDT 02/09/2025 3:51 PM CDT Shae Germain MD LAB - CHEMISTRY ORDERABLES Final Result Performing Organization Address [facility] Co de Phone Number [facility] [address] [place] [address] * HEPATITIS SCREEN ACUTE ([facility]) (03/01/2024 10:08 [...] Resulting Agency Comment Lab Testing performed at: [facility] [address] [id number] Shae Germain MD LAB - CHEMISTRY ORDERABLES Final Result Performing Organization Address [facility]/ZIP Co de Phone Number [facility] INSURANCE BILL [address] [place] [address] from Last 3 Months or Most Recently Relevant to Health Maintenance Insurance MEDICARE [employer] Care Teams Hair Dresser Relationship Specialty Start Date End Date Abimbola Sanchez PA-C [address] [place] [phone] PCP - General 11/22/22
--- OUTSIDE RECORDS SUMMARY | 2025-03-02 12:56 | XMS_ITS | Clinical Summary ---
Author Organization [facility] Address [address] [place] [address] Care Team Providers Care Fleshing Machine Operator Name Role Phone Abimbola Sanchez PA-C Primary Care Provider [phone] Source Comments [facility],non-owned Affiliates and Associated Physician Practices is amultiple site organization consisting of ambulatory clinics and hospital sitesin [place], [place], [place] and [place]. This disclosure is being madepursuant to the Care Everywhere program and may not contain all information available regarding this patient. Last updated 18.[facility] Allergies Active Allergy Reactions Criticality Noted Date Comments Latex Other Low 10/14/2017 Skin peeling Disputanta Unknown 11/26/2023 Medications * Be aware that medications may not be up to date on this document. Alwaysverify current medications with the patient. ergocalciferol (Drisdol) 1.25 MG (63296 UT) capsule Active traZODone (Desyrel) 50 MG [...] - 02/14/2025 11:59 PM CDT Hospital Encounter [facility] Imaging Services [address] [place] [address] Shae Germain MD Rheumatology Discharge Disposition: Home or Self Care 02/14/2025 10:40 AM CDT Office Visit [facility] - Rheumatology [address], [address] [place] [phone] Shae Germain MD Inflammatory arthritis (Primary Dx); Psoriatic arthritis (HCC) 02/14/2025 Results Follow-Up [facility] - Rheumatology [address] [place] [address], [address] [place] [address] Shae Germain MD 02/07/2025 Refill [facility] - Rheumatology [address], [address] [place] [phone] Shae Germain MD MEDICATION REFILL 02/04/2025 Refill [facility] - Rheumatology [address] [place] [address] Shae Germain MD MEDICATION REFILL 01/10/2025 Refill [facility] - Rheumatology [address] [place] [address] Shae Germain MD Refill Request 12/05/2024 Telephone [facility] - Rheumatology [address] [place] [address], [address] [place] [address] Shae Germain MD Medication Prior Auth Request 12/04/[address] 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 Gender Identity Not on file Sexual Orientation [...] Description 06/13/2025 11:20 AM CDT Office Visit [facility] - Rheumatology [address], [address] [place] [address] Shae Germain MD [address] [facility] [place] [address] Health Maintenance Due Date Last Done [...] C-REACTIVE PROTEIN (02/09/2025 3:47 PM CDT) Pathologist [facility] C-Reactive Protein <5.0 <8.0 mg/L [facility] Comment: REPORT COMMENT: FASTING:NO Test Performed at: [facility] [address] YAKOV DAILEY MD Blood BLOOD SPECIMEN / Unknown 02/09/2025 3:47 PM CDT 02/09/2025 3:51 PM CDT Shae Germain MD LAB - CHEMISTRY ORDERABLES Final Result Performing Organization Address [facility] Co de Phone Number [address] [address] * ERYTHROCYTE SEDIMENTATION RATE (02/09/2025 3:47 PM CDT) [facility] Erythrocyte Sedimentation Rate Westergren 16 < OR = 30 mm/h [facility] Comment: Test Performed at: [facility] [address] YAKOV DAILEY MD Blood BLOOD SPECIMEN / Unknown 02/09/2025 3:47 PM CDT 02/09/2025 3:51 PM CDT Shae Germain MD LAB - HEMATOLOGY ORDERABLES Marlee l Result Performing Organization Address [facility] Co de Phone Number [address] [address] * (ABNORMAL) CBC WITH DIFFERENTIAL (02/09/2025 3:47 PM CDT) [facility] White Blood Cell Count 10.8 [...] 0.6 % [facility] Comment: Test Performed at: [facility] [address] [place] [address] YAKOV DAILEY MD Blood BLOOD SPECIMEN / Unknown 02/09/2025 3:47 PM CDT 02/09/2025 3:51 PM CDT Shae Germain MD LAB - HEMATOLOGY ORDERABLES Marlee l Result [address] [address] * COMPREHENSIVE METABOLIC PANEL (02/09/2025 3:47 PM [...] 29 U/L [facility] Comment: Test [facility]formed at: [facility] [address] [place] [address] YAKOV DAILEY MD Blood BLOOD SPECIMEN / Unknown 02/09/2025 3:47 PM CDT 02/09/2025 3:51 PM CDT Shae Germain MD LAB - CHEMISTRY ORDERABLES Final Result Performing Organization Address [facility] Co de Phone Number [facility] [address] [place] [address] * HEPATITIS SCREEN ACUTE ([facility]) (03/01/2024 10:08 [...] Resulting Agency Comment Lab Testing performed at: [facility] [address] [id number] Shae Germain MD LAB - CHEMISTRY ORDERABLES Final Result Performing Organization Address City/[facility]/ZIP Co de Phone Number [facility] INSURANCE BILL [address] [place] [address] from Last 3 Months or Most Recently Relevant to Health Maintenance Insurance MEDICARE [employer] Care Teams Fleshing Machine Operator Relationship Specialty Start Date End Date Abimbola Sanchez PA-C [address] [phone] PCP - General 11/22/22
--- OUTSIDE RECORDS SUMMARY | 2025-03-02 12:56 | XMS_ITS | Encounter Summary ---
Author Organization [facility] Address [address] [place] [address] Care Team Providers Care Buildings And Grounds Supervisor Name Role Phone Abimbola Sanchez PA-C Primary Care Provider Encounter Details Date Type Department Care Team (Late st Contact Info) Description 02/14/2025 Results Follow-Up [facility] Medical [facility] - Rheumatology [address], [address] [place] [address] Shae Germain MD [facility] [place] [address] Social History Tobacco Use Types [...] on file 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
--- OUTSIDE RECORDS SUMMARY | 2025-03-02 12:57 | XMS_ITS | Clinical Summary ---
Author Organization [facility] Address [address] [place] [address] Care Team Providers Care Monitoring Analyst Name Role Phone Unavailable Primary Care Provider [...]
--- NOTE | 2025-03-02 13:01 | PC.NURSE ---
TDAP VIS provided to the patient at this time prior to administering the vaccine.
--- NOTE | 2025-03-02 13:37 | ED.HEATRA ---
HPI - Head Injury General Chief complaint: Head Injury Stated complaint: Fell in a brick wall-head injury Time Seen by Provider: 03/02/25 12:35 History of Present Illness HPI Narrative: Patient is a 64-year-old female who presents ER after striking her head on a brick wall after some throwing some items up some stairs. She did not lose consciousness. She does have abrasions to the right/middle forehead. She is not on any blood thinners. She does not know when she had her last tetanus shot. Related Data Home Medications ?Medication ?Instructions ?Recorded ?Confirmed ?Last Taken ?Type pantoprazole 40 mg tablet,delayed 40 mg PO DIRECTED 05/06/23 02/21/25 02/20/25 History release sertraline 50 mg tablet 100 mg PO DIRECTED 05/06/23 02/21/25 02/20/25 History adalimumab 40 mg/0.4 mL 40 mg subcut WEEKLY 09/30/23 02/21/25 02/06/25 History subcutaneous pen kit (Humira(CF) Pen) folic acid 1 mg tablet 1 mg PO DIRECTED 09/30/23 02/21/25 02/20/25 History trazodone 50 mg tablet 50 mg PO DIRECTED at bedtime 09/30/23 02/21/25 Unknown History atorvastatin 10 mg tablet 10 mg PO QPM 11/03/24 02/21/25 02/20/25 History methotrexate sodium 2.5 mg tablet 12.5 mg PO WEEKLY 02/21/25 02/21/25 02/06/25 History Allergies Allergy/AdvReac Type Severity Reaction Status Date / Time Penicillins Allergy Mild Anaphylaxis Verified 02/21/25 09:29 Aicyweh-NNP-TcQ Reductase Allergy Unknown Muscle Pain Verified 02/21/25 09:29 Inhibitor (Wpvyvgj-Vwv-Gnt Reductase Inhibitor) Review of Systems Review of Systems: All systems reviewed & are unremarkable except as noted in HPI and below Constitutional: Constitutional: Reports no additional constitutional complaints Cardiovascular: Cardiovascular: Reports no additional cardiovascular complaints Musculoskeletal: Musculoskeletal: Reports no additional musculoskeletal complaints Integumentary/Breasts: Skin/Breast: Reports system reviewed and no additional complaints, except as docu Neurologic: Reports system reviewed and no additional complaints, except as documented PMFSH Past Medical History Medical History Patient denies significant medical history Social History Social History Smoking packs per day: 0.25 Smoking cigarettes per day: 5.0 Exam Narrative: GENERAL: Well-appearing, well-nourished, and in no acute distress. HEAD: Normocephalic, superficial abrasions of forehead midline and on the right side. EYES: PERRL and EOMI. ENT: Mucous membranes moist. NECK: Supple. No midline tenderness with normal range of motion. CHEST: Clear to auscultation. No respiratory distress. HEART: Regular rate and rhythm. Normal peripheral pulses. EXTREMITIES: Normal range of motion. No edema. NEURO: Alert and oriented x3. PSYCH: Normal mood and affect. Course Course Emergency Course: Informed results. Appropriate for discharge home. Tetanus updated. Vital Signs Vital signs: Vital Signs Temperature 97.6 F 03/02/25 12:18 Pulse Rate 75 03/02/25 12:18 Respiratory Rate 17 03/02/25 12:18 Blood Pressure 121/87 03/02/25 12:18 Pulse Oximetry 98 03/02/25 12:18 Temperature 97.6 F 03/02/25 12:18 Pulse Rate 75 03/02/25 12:18 Respiratory Rate 17 03/02/25 12:18 Blood Pressure 121/87 03/02/25 12:18 Pulse Oximetry 98 03/02/25 12:18 MDM - Head Injury Imaging Data Radiologist's impression: ITS Impressions Head CT 03/02/25 13:12 IMPRESSION: 1. No fracture or acute intracranial process. 2. Unchanged mild scattered white matter hypoattenuation consistent with chronic small vessel ischemic disease. Discharge Plan Discharge Clinical Impression: Abrasion of forehead Patient Disposition: Home Condition: Stable Instructions: Abrasion (ED) Additional Instructions: Apply topical antibiotics to your wounds as needed. Dress them with bandages. Return the ER if they are draining pus, you have fever 100.4? F, you have additional concerns. Patient Language: Faroese Prescriptions: No Action pantoprazole 40 mg tablet,delayed release (DR/EC) 40 mg PO DIRECTED sertraline 50 mg tablet 100 mg PO DIRECTED trazodone 50 mg tablet 50 mg PO DIRECTED folic acid 1 mg tablet 1 mg PO DIRECTED Humira(CF) Pen 40 mg/0.4 mL pen injector kit 40 mg SUBCUT WEEKLY atorvastatin 10 mg tablet 10 mg PO QPM methotrexate sodium 2.5 mg tablet 12.5 mg PO WEEKLY Rx Instructions: Every Friday dicyclomine 20 mg tablet 20 mg PO QID Qty: 20 0RF ondansetron 4 mg tablet,disintegrating 4 mg PO Q6H PRN (Reason: nausea and vomiting) Qty: 10 0RF Follow-up/Referrals: Laura,JULIANA Daily [Primary Care Provider] - 1 Week
[2025-03-02] MEDS: TETANUS,DIPHTHERIA,AC PERTUSSIS ADULT (0.5 ML) BOOSTRIX IM (13:52)
[2025-03-02 14:25] VITALS: BP 142/82; PULSE 74; RESP 18; O2SAT 99
== END 2025-03-02 14:27 | disposition home or self-care (01) ==
PROVIDERS: Emergency Provider Emergency Medicine; PCP Physician Assistant
DX: S00.81XA Abrasion of other part of head, initial encounter (principal); Z23 Encounter for immunization; F17.210 Nicotine dependence, cigarettes, uncomplicated; Z79.899 Other long term (current) drug therapy; R93.0 Abnormal findings on diagnostic imaging of skull and head, not elsewhere classified; W01.198A Fall on same level from slipping, tripping and stumbling with subsequent striking against other object, initial encounter
CPT/HCPCS: 70450; 90471; 90715; 99284